=== PATIENT | male | born 1935 | race Caucasian/White ===

== ENCOUNTER 2017-04-12 20:40 | Inpatient (IN) | payer MEDICARE ==
[2017-04-12] MEDS ORDERED: methylPREDNISolone Sod Succ/PF 125 MG/2 ML VIAL ONE (21:10)
--- NOTE | 2017-04-12 21:42 | RAD ---
CHEST TWO VIEWS: History: Chest pain. Comparison: Chest one view, 11-30-16. FINDINGS: There is a left lower lobe airspace opacity confirmed on the lateral radiograph. Heart size is enlarg ed. No acute osseous abnormality. IMPRESSION: Left lower lobe airspace opacity suggesting pneumonia. POS: [facility]
[2017-04-12] MEDS ORDERED: Albuterol Sulfate 2.5 mg/3 ml Neb ONE (21:49)
[2017-04-12] MEDS ORDERED: Albuterol Sulfate 2.5 mg/0.5 ml Neb ONE (21:49)
[2017-04-12 22:04] LABS: Band 4 % (5-11); Mean Platelet Volume 7.2 fL (7.4-10.4); Neutrophil 67 % (42-75); Red Blood Cell (RBC) Count 4.13 mill/uL (4.70-6.10); White Blood Cell (WBC) Count 6.8 thou/uL (4.8-10.8)
[2017-04-12 22:08] LABS: ALT (SGPT) 8 U/L (8-55); AST (SGOT) 14 U/L (5-34); Alkaline Phosphatase 135 U/L (40-150); Anion Gap 10 mmol/L (10-20); BUN (Urea Nitrogen) 14 mg/dL (8.4-25.7); Bilirubin, Total 0.8 mg/dL (0.2-1.2); Calc. Creatinine Clearance 0 mL/min (70-130); Calcium 9.1 mg/dL (7.8-10.44); Carbon Dioxide 26 mmol/L (23-31); Chloride 98 mmol/L (98-107); Estimated GFR-MDRD 84; Globulin 2.7 g/dL (2.4-3.5); Protein, Total 6.5 g/dL (5.8-8.1)
[2017-04-12 22:12] LABS: Troponin I Less than 0.010 ng/mL (< 0.028)
[2017-04-13] MEDS ORDERED: Azithromycin 500 MG VIAL ONE (00:18)
--- NOTE | 2017-04-13 01:40 | PDOC.EVN ---
Event Note - Event Note Event Note: 111610 1. Pneumonia 2. COPD exacerbation 3. HTN 4. CAD Plan: see orders
[2017-04-13 01:56] LABS: Oxyhemoglobin 93.5 % (94.0-97.0)
[2017-04-13 01:57] LABS: Modified Allen's Test POSITIVE; Sodium 134 mmol/L (135-148); Vent NO
[2017-04-13 01:58] LABS: Mode Nasal Cannula
[2017-04-13 03:32] LABS: Troponin I 0.012 ng/mL (< 0.028)
[2017-04-13 04:05] VITALS: BMI 21.7
[2017-04-13] MEDS: cloNIDine 0.2 MG TAB PO PRN ×2 (05:13→11:41)
[2017-04-13 06:24] LABS: Troponin I Less than 0.010 ng/mL (< 0.028)
--- NOTE | 2017-04-13 09:50 | HP ---
DATE OF ADMISSION: 04/13/2017 CHIEF COMPLAINT: Dyspnea. HISTORY OF PRESENT ILLNESS: The patient is a 81-year-old male with a past medical history of COPD, h ypertension, coronary artery disease, who came to the ER complaining of dyspnea. The patient said he is having dyspnea for the last few days with some cough also. Denies any sputum production. Compla ins of wheezing at home. The patient tried breathing treatments and dyspnea did not improve. The pa hamzah checked his pulse ox at home, was low and when he was walking, his pulse ox was dropping to 88% , so he came to the ER. Upon ER arrival, the patient was initially hypoxic, so the patient was place d on oxygen and patient's oxygen sats improved later on. Denies any chest pain, complaining of some chest tightness, denies any dizziness, denies any lightheadedness, denies any nausea, denies any vomi ting. PAST MEDICAL HISTORY: As per HPI. PAST SURGICAL HISTORY: CABG. SOCIAL HISTORY: Used to smoke, not smoking, denies alcohol, denies any drugs. FAMILY HISTORY: Positive for heart problems. REVIEW OF SYSTEMS: Constitutional: Denies any fever, denies any chills. Eyes: Denies any vision p roblems. Ears: Denies any hearing loss. Neck: Denies any neck pain. Cardiovascular System: Denies any chest pain. Denies any palpitations. Respiratory System: Positi ve for dyspnea. Positive for cough. Cranial Nerve System: Denies syncope, denies lightheadedness. Psychiatric: Denies anxiety. Integumentary: Denies any rash. Musculoskeletal: Denies any joint deformities. Genitourinary: Denies any dysuria. All other revie w of systems are reviewed and are negative. PHYSICAL EXAMINATION: CONSTITUTIONAL/VITAL SIGNS: At the time of H&P performed, blood pressure 152/87, pulse ox 93%, heart rate 90. GENERAL: The patient appears tired. HEENT: Anterior nares patent. Nose normal. Ears normal. Teeth intact. Tongue is moist. NECK: Supple. No JVD. CARDIOVASCULAR SYSTEM: S1, S2 present. Regular rate and rhythm. No murmurs, no rubs, no gallops. RESPIRATORY SYSTEM: No wheezing or rhonchi. Diminished breath sounds present. Positive for wheezin g. ABDOMEN: Soft, nontender, no guarding, no organomegaly, no masses felt. MUSCULOSKELETAL: No edema. CRANIAL NERVE SYSTEM: Cranial nerves intact. Follows commands. Strength intact, sensory intact. GENITOURINARY: Without dysuria. INTEGUMENTARY: No rashes seen. PSYCHIATRIC: Mood is appropriate at this time. LABORATORY DATA: At the time of H&P performed, white count of 6.8, hemoglobin 13, platelet count is 238. BMP shows sodium 130, potassium 3.6, chloride 98, CO2 of 26, BUN of 14, creatinine 0.8. Tropon in less than 0.0. BNP 608. His chest x-ray positive for left lower lobe pneumonia and infiltrate. ASSESSMENT AND PLAN: The patient is a 81-year-old male: 1. Pneumonia. Perhaps the patient on IV Rocephin and Zithromax and monitor the patient closely. We will send legionella and Strep pneumo urinary antigen. We will start the patient on breathing treat ments. 2. Acute chronic obstructive pulmonary disease exacerbation. Continue breathing treatments and IV s teroids. Monitor respiratory status closely. Continue oxygen nasal cannula. 3. Hypertension. Monitor blood pressure. Continue home treatments. 4. History of coronary artery disease. Continue home aspirin. 5. Deep venous thrombosis and gastrointestinal prophylaxis, SCDs and PPI. Case was discussed in detail with the patient.
--- NOTE | 2017-04-13 11:01 | PDOC.PN ---
- Subjective Encounter Start Date: 04/13/17 Encounter Start Time: 10:00 No complaint.. feels better. Wants to go home. - Objective Vital Signs & Weight: Vital Signs (12 hours) Temp Pulse Resp BP BP Pulse Ox 04/13/17 07:30 97.7 F 93 22 H 95 04/13/17 07:18 98.8 F 120 H 20 166/96 H 96 04/13/17 06:08 163/102 H 04/13/17 05:32 176/101 H 04/13/17 05:13 200/103 H 04/13/17 03:53 200/103 H 94 L 04/13/17 02:20 97.7 F 93 22 H 189/97 H 95 Weight Weight 134 lb 4.184 oz I&O: 04/12/17 04/13/17 04/14/17 06:59 06:59 06:59 Intake Total 480 300 Balance 480 300 Result Diagrams: 04/12/17 Unknown 04/12/17 Unknown Phys Exam - Physical Examination HEENT: moist MMs Neck: no JVD Respiratory: clear to auscultation bilateral Cardiovascular: irregular Gastrointestinal: soft Musculoskeletal: no edema Neurological: moves all 4 limbs Psychiatric: A&O x 3 Dx/Plan (1) Pneumonia Code(s): J18.9 - PNEUMONIA, UNSPECIFIED ORGANISM Status: Acute (2) Asthma with COPD with exacerbation Code(s): J44.1 - CHRONIC OBSTRUCTIVE PULMONARY DISEASE W (ACUTE) EXACERBATION; J45.901 - UNSPECIFIED ASTHMA WITH (ACUTE) EXACERBATION Status: Acute (3) CAD (coronary artery disease) Code(s): I25.10 - ATHSCL HEART DISEASE OF [place] CORONARY ARTERY W/O ANG PCTRS Status: Chronic - Plan -: continue plan of care.. * .
[2017-04-13] MEDS ORDERED: cloNIDine 0.2 MG TAB PO PRN (12:20)
[2017-04-13] MEDS ORDERED: Tamsulosin HCl 0.4 MG CAP PO SCH (14:45)
[2017-04-13] MEDS ORDERED: Diltiazem HCl SR 60 mg Capsule PO SCH (14:45)
[2017-04-13] MEDS ORDERED: ALPRAZolam 0.25 MG TAB PO SCH (14:45)
[2017-04-13] MEDS ORDERED: Albuterol Sulfate 2.5 mg/3 ml Neb NEB SCH ×2 (14:45→19:00)
[2017-04-13] MEDS ORDERED: guaiFENesin ER 600 MG TAB PO SCH (14:45)
[2017-04-13] MEDS ORDERED: Lisinopril 20 MG TAB PO SCH (14:45)
[2017-04-13] MEDS ORDERED: CEFTRIAXONE SODIUM IVPB SCH (15:15)
[2017-04-13] MEDS ORDERED: cloNIDine 0.1 MG TAB PO PRN (15:44)
[2017-04-13] MEDS: Carvedilol 6.25 MG TAB PO SCH (17:16)
[2017-04-13] MEDS: Albuterol Sulfate 2.5 mg/3 ml Neb NEB SCH (19:19)
[2017-04-13] MEDS: Diltiazem HCl SR 60 mg Capsule PO SCH (20:15)
[2017-04-13] MEDS: Atorvastatin Calcium 40 MG TAB PO SCH (20:15)
[2017-04-13] MEDS: guaiFENesin ER 600 MG TAB PO SCH (20:15)
[2017-04-13] MEDS: Tamsulosin HCl 0.4 MG CAP PO SCH (20:16)
[2017-04-13] MEDS: Finasteride 5 MG TAB PO SCH (20:17)
[2017-04-13] MEDS: Lisinopril 20 MG TAB PO SCH (20:17)
[2017-04-13] MEDS ORDERED: MULTIVITAMINS IV SCH ×6 (22:00)
[2017-04-13] MEDS ORDERED: AMINO ACIDS 15% IV SCH ×6 (22:00)
[2017-04-13] MEDS ORDERED: MULTITRACE IV SCH ×6 (22:00)
[2017-04-13] MEDS ORDERED: [UNRECOGNIZED DRUG - OTHER] IV SCH ×6 (22:00)
[2017-04-13] MEDS: ALPRAZolam 0.25 MG TAB PO SCH (22:16)
--- NOTE | 2017-04-13 22:27 | CON ---
DATE OF CONSULTATION: 04/13/2017 HISTORY OF PRESENT ILLNESS: Mr. Moore is a very pleasant gentleman I have known as long as I have been in town. He is a patient of Dr. Draper's He said he went to the post office [place] and became short of breath and almost could not make it back home. He did a breathing treatment when he got home and says that he did not feel any better, s o he presented to the emergency department after 6:00 yesterday. He was not admitted until about 1:30 this morning. He is very frustrated because he says he has not received any of his medicines, I had hard time getti ng him to even provide a history. He had called my office and said he was leaving even though I did not know he was in the hospital. He has agreed to stay now. PAST MEDICAL HISTORY: Remarkable for: 1. Cholecystectomy. 2. History of coronary artery bypass grafting, 5 vessels. 3. History of myocardial infarction prior to his bypass, bypass done in 2002. 4. History of sternal dehiscence with his bypass. 5. History of benign prostatic hypertrophy. 6. History of hypertension. 7. History of asthma. 8. History of bilateral inguinal herniorrhaphies. 9. History of an umbilical herniorrhaphy. 10. History of cataract surgery. 11. He is a former smoker but has not smoked since about 2002 about the time of his surgery. 12. History of TURP [place] [address] Dhiraj Johnston. 13. History of post TURP bleed requiring cystoscopy. 14. History of a November admission with shortness of breath. 15. History of a lipid disorder. ALLERGIES: He reports allergies to SULFA, CIPRO, LEVAQUIN, and AUGMENTIN. MEDICATIONS: He was on aspirin, nebulizer, Xanax, atenolol, Cardizem, finasteride, lisinopril, omepr azole, and Mucinex. SOCIAL HISTORY: His in 2015. He lives alone. He does a good job of taking care of himself. FAMILY HISTORY: Positive for heart disease. REVIEW OF SYSTEMS: Otherwise negative, mainly remarkable for dyspnea on exertion. He denies having any fever at home. He had no purulent sputum. He says his chest is congested. PHYSICAL EXAMINATION: VITAL SIGNS: His blood pressure this morning was 181/103, he is afebrile, heart rate is 91, respirat ory rate is 24. GENERAL: He is very upset, again threatening to leave when I made rounds. By the time I left his ro om, he had calmed down. He said he would agree to stay tomorrow as long as he got all of his medicin es. Oximetry is 94. HEAD AND NECK: Unremarkable. LUNGS: Remarkable for faint wheezes diffusely with prolonged expiratory phase. When he gets excited , he has a hard time talking. HEART: Regular rhythm. S1 and S2 are normal. ABDOMEN: Soft and nontender. EXTREMITIES: Without asymmetry. LABORATORY DATA: White count 6.8, hemoglobin 13, platelets 238. Sodium 130, potassium 3.6, chloride 98, bicarbonate 26, BUN 14, creatinine 0.8. Blood gas 7.45, CO2 of 35, pO2 of 72 at 1:30 this morni ng. Chest radiograph is hazy at the left base, but old films are hazy at the left base as well. IMPRESSION: 1. Asthma exacerbation with bronchitis, perhaps early pneumonia versus mucous plugging was creating his radiographic abnormalities. 2. Hypertension, uncontrolled secondary to delay in him getting his medicines. PLAN: Nebs, antibiotics, mucolytics, IV fluids, anxiolytics, blood pressure control.
[2017-04-13] MEDS: cefTRIAXone\\ROCEPHIN 1 GM, Syringe 0.4 ML in Sterile Water 9.6 ML SLOW IVP SCH (23:17)
[2017-04-14] MEDS: Azithromycin 500 MG in Sodium Chloride 0.9% 250 ML 250 ML IVPB SCH (01:04)
[2017-04-14] MEDS: Albuterol Sulfate 2.5 mg/3 ml Neb NEB SCH ×4 (06:53→18:45)
[2017-04-14] MEDS: Aspirin 81 mg Enteric Coated Tablet PO SCH (09:08)
[2017-04-14] MEDS: ALPRAZolam 0.25 MG TAB PO SCH ×2 (09:08→22:10)
[2017-04-14] MEDS: Furosemide 20 MG TAB PO SCH (09:09)
[2017-04-14] MEDS: Lisinopril 20 MG TAB PO SCH ×2 (09:09→20:49)
[2017-04-14] MEDS: Diltiazem HCl SR 60 mg Capsule PO SCH ×2 (09:09→20:50)
[2017-04-14] MEDS: guaiFENesin ER 600 MG TAB PO SCH ×2 (09:09→20:51)
[2017-04-14] MEDS: Tamsulosin HCl 0.4 MG CAP PO SCH ×2 (09:10→20:52)
--- NOTE | 2017-04-14 11:42 | PDOC.PN ---
- Subjective Encounter Start Date: 04/14/17 Encounter Start Time: 10:45 -: +SOB - Objective Vital Signs & Weight: Vital Signs (12 hours) Temp Pulse Resp BP Pulse Ox 04/14/17 10:23 78 15 94 L 04/14/17 08:00 97.8 F 48 L 18 04/14/17 07:20 97.8 F 48 L 18 140/63 98 04/14/17 06:53 89 16 95 04/14/17 04:00 97.8 F 52 L 18 127/65 94 L 04/14/17 03:34 97 Weight Weight 132 lb 11.492 oz I&O: 04/13/17 04/14/17 04/15/17 06:59 06:59 06:59 Intake Total 480 1410 Output Total 1700 200 Balance 480 -290 -200 Result Diagrams: 04/12/17 Unknown 04/12/17 Unknown Phys Exam - Physical Examination HEENT: sclera anicteric Neck: no JVD Respiratory: wheezing present Cardiovascular: RRR Gastrointestinal: soft Musculoskeletal: no edema Neurological: moves all 4 limbs Psychiatric: A&O x 3 Dx/Plan (1) Pneumonia Code(s): J18.9 - PNEUMONIA, UNSPECIFIED ORGANISM Status: Acute Plan: continue antibiotics.. (2) Asthma with COPD with exacerbation Code(s): J44.1 - CHRONIC OBSTRUCTIVE PULMONARY DISEASE W (ACUTE) EXACERBATION; J45.901 - UNSPECIFIED ASTHMA WITH (ACUTE) EXACERBATION Status: Acute Comment : On steroids, bronchodilators.. (3) CAD (coronary artery disease) Code(s): I25.10 - ATHSCL HEART DISEASE OF [place] CORONARY ARTERY W/O ANG PCTRS Status: Chronic - Plan -: Continue current therapy. * .
[2017-04-14] MEDS: Carvedilol 6.25 MG TAB PO SCH (11:48)
[2017-04-14] MEDS: methylPREDNISolone Sod Succ/PF 125 MG/2 ML VIAL IVP SCH ×2 (14:08→20:52)
--- NOTE | 2017-04-14 15:50 | PRG ---
DATE OF SERVICE: 04/14/2017 SUBJECTIVE: Catarino is doing much better he says. He wants to go home. I have convinced him to stay 1 more day. OBJECTIVE: VITAL SIGNS: He is afebrile, heart rate is in the 60s-70s this afternoon, respiratory rate 16, oxime try is 95 on 2 liters, 92-93 on room air. He has his own oximeter. Blood pressure 137/71. LUNGS: Remarkable for distant wheezes. His chest exam is improved compared to yesterday. IMPRESSION: Asthma exacerbation. PLAN: Stay 1 more day. Hopefully, we can send him home tomorrow.
[2017-04-14] MEDS: Finasteride 5 MG TAB PO SCH (20:52)
[2017-04-14] MEDS: Atorvastatin Calcium 40 MG TAB PO SCH (20:52)
[2017-04-14] MEDS: cefTRIAXone\\ROCEPHIN 1 GM, Syringe 0.4 ML in Sterile Water 9.6 ML SLOW IVP SCH (23:26)
[2017-04-15] MEDS: Azithromycin 500 MG in Sodium Chloride 0.9% 250 ML 250 ML IVPB SCH (00:27)
[2017-04-15] MEDS: Albuterol Sulfate 2.5 mg/3 ml Neb NEB SCH (07:16)
[2017-04-15 08:30] VITALS: BP 150/79; TEMP 97.3
[2017-04-15] MEDS: Furosemide 20 MG TAB PO SCH (08:54)
[2017-04-15] MEDS: Aspirin 81 mg Enteric Coated Tablet PO SCH (08:54)
[2017-04-15] MEDS: Tamsulosin HCl 0.4 MG CAP PO SCH (08:54)
[2017-04-15] MEDS: ALPRAZolam 0.25 MG TAB PO SCH (08:55)
[2017-04-15] MEDS: methylPREDNISolone Sod Succ/PF 125 MG/2 ML VIAL IVP SCH (08:55)
[2017-04-15] MEDS: guaiFENesin ER 600 MG TAB PO SCH (08:55)
[2017-04-15] MEDS: Diltiazem HCl SR 60 mg Capsule PO SCH (08:55)
[2017-04-15] MEDS: Lisinopril 20 MG TAB PO SCH (08:57)
[2017-04-15] MEDS ORDERED: Carvedilol 6.25 MG TAB PO SCH (10:15)
--- NOTE | 2017-04-15 12:07 | DIS ---
DATE OF ADMISSION: 04/13/2017 DATE OF DISCHARGE: 04/14/2017 DISCHARGE DIAGNOSES: Pneumonia, chronic obstructive pulmonary disease/asthma exacerbation, coronary artery disease. BRANCH SALES MANAGER: Dr. Rodriguez. PROCEDURES: Chest x-ray, bronchodilator via nebulizer, IV administration of antibiotics. COURSE OF HOSPITALIZATION: Responded well to management. The patient was discharged by the pulmonol ogist earlier today. The patient is to follow up with his primary care physician and also with nephr ologist.
--- NOTE | 2017-04-15 14:27 | PRG ---
DATE OF SERVICE: 04/15/2017 SUBJECTIVE: Catarino Moore did well overnight. OBJECTIVE: LUNGS: He has only faint wheezes on exam. CARDIOVASCULAR: Regular rhythm. ABDOMEN: Soft. He is adamant that he be discharged. His family is comfortable with that. I have explained to them we can follow up with him in the office this week on Sunday or . His daughter will call for an appointment on Sunday hopefully. He will do go home on 40 of prednisone until he sees Dr. Draper. He will continue on Omnicef. Radiologist called an infiltrate at the left base, but I am not sure if this had just a little atelectasis associated with mucus plugging. He will have a followup radiograph at a later date. SAVANA
--- NOTE | 2017-04-19 11:53 | PQF ---
KRISTINE ZULETAE DEISISHIREEN [id number] [facility] [place] [id number] CLINICAL DOCUMENTATION CLARIFICATION FORM: POST DISCHARGE Addendum to original discharge summary date: ____ Late entry note date: __ DATE: 04/19/2017 ATTN: DR. LIPSCOMB Please exercise your independent, professional judgment in responding to the clarification form. Clinical indicators are provided on the bottom of this form for your review Please check appropriate box(s): [ ] Acute Respiratory Failure: [ ] with Hypoxia[ ] with Hypercapnia [ ] Acute On Chronic Respiratory Failure: [ ] with Hypoxia [ ] with Hypercapnia [ ] Acute Respiratory Failure due to: (etiology) [ ] Acute Respiratory Insufficiency following (if applicable): [ ] trauma [ ] surgery [ ] Chronic Respiratory Failure only [ ] with Hypoxia [ ] with Hypercapnia [ ] Hypoxia [ ] Other diagnosis [ ] Unable to determine In addition, please specify: Present on Admission (POA): [ ] Yes [ ] No [ ] Unable to determine For continuity of documentation, please document condition throughout progress notes and discharge summary. Thank You. CLINICAL INDICATORS - SIGNS / SYMPTOMS / LABS Respirtory rate in ER was 28 O2 sat was 94 on admission but dropped to 91 in ER ER physician states" that despite duoneb and hour long neb & steroids here, patient hypoxemic to upper 80s on room air" hypoxemia ER nursing Assessment notes " repsiratory effort labored, tachypneic" RISK FACTORS: Pneumonia COPD/Asthma exacerbation TREATMENTS: Oxygen Serial CXR Antibiotics IV Bronchodilators Pulmonary Consult (This form is maintained as a part of the permanent medical record) 2014 [employer]. All Rights Reserved [email or web address] [phone] SAVANA
== END 2017-04-15 10:38 | disposition home or self-care (01) | DRG 190 ==
LOC: ERS 20:40 → 2SE 04-13 00:45
PROVIDERS: ADMIT Internal Medicine; ATTEND Internal Medicine
DX: J44.0 Chronic obstructive pulmonary disease with (acute) lower respiratory infection (principal); J18.9 Pneumonia, unspecified organism; J45.901 Unspecified asthma with (acute) exacerbation; J44.1 Chronic obstructive pulmonary disease with (acute) exacerbation; Z87.891 Personal history of nicotine dependence; I25.10 Atherosclerotic heart disease of native coronary artery without angina pectoris; Z95.1 Presence of aortocoronary bypass graft; I25.2 Old myocardial infarction; I10 Essential (primary) hypertension; N40.0 Benign prostatic hyperplasia without lower urinary tract symptoms; Z88.1 Allergy status to other antibiotic agents; Z88.2 Allergy status to sulfonamides
CPT/HCPCS: 36415; 71020; 80053; 82553; 82805; 83880; 84484; 85025; 87040; 93005; 94640; 96365; 96375; A4216; J0456; J0696; J2930; J7050; J7611; J7620

== ENCOUNTER 2017-08-20 10:08 | Emergency (ER) | payer MEDICARE ==
[2017-08-20 10:49] LABS: Hemoglobin 15.9 g/dL (14.0-18.0); Mean Corpuscular HGB CONC 31.7 g/dL (32.0-36.0); Mean Corpuscular Hemoglobin 28.9 pg (27.0-31.0); Mean Corpuscular Volume 91.2 fl (80.0-94.0); Mean Platelet Volume 6.7 fL (7.4-10.4); Platelet Count 337 thou/uL (130-400); RBC Distribution Width 12.9 % (11.5-14.5); Red Blood Cell (RBC) Count 5.49 mill/uL (4.70-6.10); White Blood Cell (WBC) Count 28.4 thou/uL (4.8-10.8)
[2017-08-20 11:10] LABS: Lymphocytes 1 % (21-51); MDiff Complete? YES; Monocytes 5 % (0-10); Neutrophil 93 % (42-75); PLT Morphology Comment Appears Adequate; Reactive Lymphocytes 1 % (0-10)
--- NOTE | 2017-08-20 11:13 | RAD ---
SINGLE VIEW OF THE CHEST: Comparison: 11-30-16 History: Urinary retention for the day with shortness of breath. FINDINGS: Single view of the chest shows a normal sized cardiomediastinal silhouette with atherosclerotic calci fications in the aorta. The patient is status post sternotomy. Increased interstitial markings are pr esent. There is no evidence of consolidation, mass, or pleural effusion. IMPRESSION: 1. No evidence of acute cardiopulmonary disease. 2. Atherosclerotic disease. POS: [facility]
[2017-08-20 11:30] LABS: ALT (SGPT) 12 U/L (8-55); AST (SGOT) 17 U/L (5-34); Alkaline Phosphatase 110 U/L (40-150); Anion Gap 14 mmol/L (10-20); BUN (Urea Nitrogen) 20 mg/dL (8.4-25.7); Bilirubin, Total 1.2 mg/dL (0.2-1.2); CK (CPK) 46 U/L (30-200); Calc. Creatinine Clearance 0 mL/min (70-130); Calcium 9.9 mg/dL (7.8-10.44); Carbon Dioxide 27 mmol/L (23-31); Chloride 96 mmol/L (98-107); Estimated GFR-MDRD 75; Globulin 3.1 g/dL (2.4-3.5); Lipase 27 U/L (8-78); Potassium 3.9 mmol/L (3.5-5.1); Protein, Total 7.1 g/dL (5.8-8.1); Sodium 133 mmol/L (136-145)
[2017-08-20 11:31] LABS: Glucose 59 mg/dL (83-110)
[2017-08-20 11:44] LABS: Bilirubin Negative (Negative); Blood, Urine Negative (Negative); Clarity CLEAR (Clear); Glucose, Urine (Dipstick) Negative (Negative); Leukocyte Negative (Negative); Nitrite Negative (Negative); Protein, Urine (Dipstick) Negative (Neg-Trace); Specific Gravity, Urine 1.008 (1.002-1.036)
--- NOTE | 2017-09-28 15:38 | EKG ---
Test Reason : SOB Blood Pressure : / mmHG Vent. Rate : 082 BPM Atrial Rate : 082 BPM P-R Int : 186 ms QRS Dur : 130 ms QT Int : 380 ms P-R-T Axes : 064 -19 072 degrees QTc Int : 443 ms Sinus rhythm with occasional Premature ventricular complexes and Premature atrial complexes Right bundle branch block Inferior infarct , age undetermined Abnormal ECG Confirmed by GILMER GAINES MD ([id number]), medical editor RICHELLE BRAVO ([id number]) on 09/28/2017 3:37:51 PM Referred By: Confirmed By:GILMER GAINES MD
== END 2017-08-20 12:55 | disposition home or self-care (01) ==
LOC: ERS 10:08
DX: D72.829 Elevated white blood cell count, unspecified (principal); I10 Essential (primary) hypertension; I25.10 Atherosclerotic heart disease of native coronary artery without angina pectoris; J44.9 Chronic obstructive pulmonary disease, unspecified; F41.9 Anxiety disorder, unspecified; Z87.891 Personal history of nicotine dependence
CPT/HCPCS: 36416; 71045; 80053; 81003; 82550; 83690; 85025; 87086; 93005; 94760

== ENCOUNTER 2017-08-25 11:58 | Emergency (ER) | payer MEDICARE ==
[2017-08-25 12:28] LABS: #Eosinphils 0.1 thou/uL (0.0-0.7); #Lymphocytes 0.9 thou/uL (1.20-3.40); #Monocytes 0.9 thou/uL (0.11-0.59); #Neutrophils 6.4 thou/uL (1.40-6.50); %Basophils 0.4 % (0.0-1.0); %Eosinophils 1.4 % (0.0-10.0); %Neutrophils 76.2 % (42.0-75.0); Hemoglobin 14.6 g/dL (14.0-18.0); Mean Corpuscular Hemoglobin 30.2 pg (27.0-31.0); Mean Corpuscular Volume 91.4 fl (80.0-94.0); Mean Platelet Volume 6.8 fL (7.4-10.4); Platelet Count 278 thou/uL (130-400); RBC Distribution Width 12.6 % (11.5-14.5); Red Blood Cell (RBC) Count 4.85 mill/uL (4.70-6.10); White Blood Cell (WBC) Count 8.4 thou/uL (4.8-10.8)
[2017-08-25 12:56] LABS: ALT (SGPT) 10 U/L (8-55); AST (SGOT) 21 U/L (5-34); Albumin 3.6 g/dL (3.4-4.8); Alkaline Phosphatase 108 U/L (40-150); Anion Gap 13 mmol/L (10-20); BUN (Urea Nitrogen) 13 mg/dL (8.4-25.7); Bilirubin, Total 0.6 mg/dL (0.2-1.2); Calc. Creatinine Clearance 0 mL/min (70-130); Calcium 9.2 mg/dL (7.8-10.44); Carbon Dioxide 23 mmol/L (23-31); Chloride 102 mmol/L (98-107); Estimated GFR-MDRD 86; Globulin 3.3 g/dL (2.4-3.5); Glucose 182 mg/dL (83-110); Potassium 4.5 mmol/L (3.5-5.1); Protein, Total 6.9 g/dL (5.8-8.1); Sodium 133 mmol/L (136-145)
[2017-08-25 12:58] LABS: Bilirubin Negative (Negative); Blood, Urine Large (Negative); Clarity CLOUDY (Clear); Glucose, Urine (Dipstick) Negative (Negative); Leukocyte Moderate (Negative); Nitrite Negative (Negative); Protein, Urine (Dipstick) Trace mg/dL (Neg-Trace); Specific Gravity, Urine 1.009 (1.002-1.036); Urobilinogen 0.2 mg/dL (0.2-1.0)
[2017-08-25 13:00] LABS: Bacteria/HPF None Seen HPF (None Seen); Hyaline Casts/LPF 0-3 HYALINE CAST LPF (0-3 Hyaline); Pathc Cast-AUWi Flag 0.26 (0-2.49); RBC/HPF GREATER THAN 50-TNTC HPF (0-3); Squamous Epithelial 0-3 HPF (0-3); WBC/HPF 21-50 HPF (0-3); Yeast-AUWi Flag 17.9 (0-25.0)
== END 2017-08-25 13:40 | disposition home or self-care (01) ==
LOC: ERS 11:58
DX: R31.9 Hematuria, unspecified (principal); I25.10 Atherosclerotic heart disease of native coronary artery without angina pectoris; I10 Essential (primary) hypertension; J44.9 Chronic obstructive pulmonary disease, unspecified; F41.9 Anxiety disorder, unspecified; Z87.891 Personal history of nicotine dependence
CPT/HCPCS: 36415; 80053; 81003; 81015; 85025; 87077; 87086; 87186; 96361; 96374; J0696

== ENCOUNTER 2018-04-29 09:36 | Outpatient (CLI) | payer MEDICARE ==
--- NOTE | 2018-04-29 10:06 | RAD ---
RADIOGRAPH CHEST 2 VIEWS: Date: 04-29-18 Time: 9:53 A.M. HISTORY: 82-year-old male with dyspnea. COMPARISON: 08-20-17 FINDINGS: Severe COPD changes of the bilateral upper lobes with hyperlucency and attenuation of pulmonary nick ngs. Sternotomy wires. No pleural effusion. Nonspecific increased attenuation with streaky densities in the left lower lobe appear similar to the prior study. Lateral view demonstrates significantly inc reased AP dimension of the heart. Atherosclerotic calcification of the thoracic aorta. Surgical clips at the mediastinum. No pneumothorax. No interval change on the frontal view. IMPRESSION: 1. Severe emphysema. 2. Cardiomegaly without overt congestive heart failure. 3. Status post coronary artery bypass graft surgery is evidence for coronary atherosclerotic disease. 4. Streaky densities in the left lower lobe. This is nonspecific. This could either represent chronic changes or recurrent acute on chronic changes. This appears similar to the frontal view of 08-20-17. JN POS: [facility]
== END 2018-04-29 09:37 | disposition home or self-care (01) ==
LOC: RAD 09:36
PROVIDERS: ATTEND Internal Medicine Pulmonary Disease
DX: R06.00 Dyspnea, unspecified (principal); J43.9 Emphysema, unspecified; I51.7 Cardiomegaly; R91.8 Other nonspecific abnormal finding of lung field; I25.10 Atherosclerotic heart disease of native coronary artery without angina pectoris; Z95.1 Presence of aortocoronary bypass graft
CPT/HCPCS: 71046

== ENCOUNTER 2018-07-30 16:15 | Outpatient (CLI) | payer MEDICARE ==
--- NOTE | 2018-07-30 17:26 | RAD ---
THREE VIEWS LUMBAR SPINE: 07/30/18 INDICATION: Back pain. FINDINGS: There is advanced disc degenerative disease at L2-3. There is dextroscoliosis of the lumbar spine bernardo tered at L2-3. There is diffuse osteopenia. There is advanced disc degenerative disease at L5-S1. The re is vacuum disc phenomenon at L2-3 and L5-S1 which can be indicative of underlying instability. The re is prominent amount of retained stool within the rectum. There is scattered vascular calcification s. No definite acute osseous abnormality is evident. IMPRESSION: 1. Moderate spondylosis of the lumbar spine. 2. Prominent amount of retained stool within the colon. POS: [facility]
== END 2018-07-30 16:16 | disposition home or self-care (01) ==
LOC: SCSRAD 16:15
PROVIDERS: ATTEND Nurse Practitioner Family
DX: M54.5 Low back pain (principal); M47.816 Spondylosis without myelopathy or radiculopathy, lumbar region; K59.00 Constipation, unspecified
CPT/HCPCS: 72100

== ENCOUNTER 2018-08-01 11:27 | Emergency (ER) | payer MEDICARE ==
[2018-08-01 12:49] LABS: Hemoglobin 13.6 g/dL (14.0-18.0); Mean Corpuscular HGB CONC 32.4 g/dL (32.0-36.0); Mean Corpuscular Hemoglobin 30.1 pg (27.0-31.0); Mean Corpuscular Volume 92.7 fL (78.0-98.0); Mean Platelet Volume 7.4 fL (7.4-10.4); Platelet Count 340 thou/uL (130-400); RBC Distribution Width 12.8 % (11.5-14.5); Red Blood Cell (RBC) Count 4.53 mill/uL (4.70-6.10); White Blood Cell (WBC) Count 9.2 thou/uL (4.8-10.8)
[2018-08-01 13:05] LABS: Band 1 % (5-11); Burr Cells SLIGHT = 2-5 cells (100X) (0-1/hpf); Eosinophils 1 % (0-10); Lymphocytes 15 % (21-51); MDiff Complete? YES; Monocytes 14 % (0-10); Neutrophil 67 % (42-75); Ovalocytes SLIGHT = 2-5 cells (100X) (0-1/hpf); Platelet Morphology Comment Appears Adequate; Polychromasia SLIGHT = 2-3 cells (100X) (0-2/hpf); Reactive Lymphocytes 2 % (0-10)
[2018-08-01 13:12] LABS: ALT (SGPT) 8 U/L (8-55); AST (SGOT) 13 U/L (5-34); Albumin 3.4 g/dL (3.4-4.8); Alkaline Phosphatase 89 U/L (40-150); Anion Gap 10 mmol/L (10-20); BUN (Urea Nitrogen) 19 mg/dL (8.4-25.7); Bilirubin, Total 0.8 mg/dL (0.2-1.2); Calc. Creatinine Clearance 0 mL/min (70-130); Calcium 8.8 mg/dL (7.8-10.44); Carbon Dioxide 30 mmol/L (23-31); Chloride 93 mmol/L (98-107); Estimated GFR-MDRD 81; Globulin 2.1 g/dL (2.4-3.5); Glucose 102 mg/dL (83-110); Potassium 3.6 mmol/L (3.5-5.1); Protein, Total 5.5 g/dL (5.8-8.1); Sodium 129 mmol/L (136-145)
[2018-08-01 13:24] LABS: Bilirubin Negative (Negative); Blood, Urine Negative (Negative); Clarity CLEAR (Clear); Glucose, Urine (Dipstick) Negative (Negative); Leukocyte Negative (Negative); Nitrite Negative (Negative); Protein, Urine (Dipstick) Negative (Neg-Trace); Specific Gravity, Urine 1.012 (1.002-1.036); pH, Urine 6.5 (5.0-9.0)
--- NOTE | 2018-08-03 17:36 | EKG ---
Test Reason : WEAKNESS Blood Pressure : / mmHG Vent. Rate : 037 BPM Atrial Rate : 044 BPM P-R Int : 000 ms QRS Dur : 136 ms QT Int : 498 ms P-R-T Axes : 000 -46 021 degrees QTc Int : 390 ms Atrial fibrillation with slow ventricular response Right bundle branch block Left anterior fascicular block Bifascicular block Inferior infarct , age undetermined T wave abnormality, consider lateral ischemia or digitalis effect Abnormal ECG Confirmed by ALISSA BERNAL, ILDA ([id number]), photograph editor RICHELLE BRAVO ([id number]) on 08/03/2018 5:35:47 PM Referred By: ALISSA Confirmed By:ILDA MAXWELL MD
== END 2018-08-01 15:33 | disposition home or self-care (01) ==
LOC: ERS 11:27
DX: E87.1 Hypo-osmolality and hyponatremia (principal); I25.10 Atherosclerotic heart disease of native coronary artery without angina pectoris; I10 Essential (primary) hypertension; J44.9 Chronic obstructive pulmonary disease, unspecified; F41.9 Anxiety disorder, unspecified; Z87.891 Personal history of nicotine dependence
CPT/HCPCS: 36415; 51701; 80053; 81003; 85025; 93005; 94760

== ENCOUNTER 2018-08-02 02:36 | Emergency (ER) | payer MEDICARE ==
[2018-08-02 03:37] LABS: Hemoglobin 14.6 g/dL (14.0-18.0); Mean Corpuscular HGB CONC 32.7 g/dL (32.0-36.0); Mean Corpuscular Hemoglobin 29.7 pg (27.0-31.0); Mean Corpuscular Volume 90.8 fL (78.0-98.0); Mean Platelet Volume 7.5 fL (7.4-10.4); Platelet Count 360 thou/uL (130-400); RBC Distribution Width 12.9 % (11.5-14.5); Red Blood Cell (RBC) Count 4.91 mill/uL (4.70-6.10); White Blood Cell (WBC) Count 22.1 thou/uL (4.8-10.8)
[2018-08-02 03:43] LABS: Bilirubin Negative (Negative); Blood, Urine Negative (Negative); Clarity CLEAR (Clear); Glucose, Urine (Dipstick) Negative (Negative); Leukocyte Negative (Negative); Nitrite Negative (Negative); Protein, Urine (Dipstick) Negative (Neg-Trace); Specific Gravity, Urine 1.011 (1.002-1.036); Urobilinogen 0.2 mg/dL (0.2-1.0)
[2018-08-02 03:46] LABS: ALT (SGPT) 9 U/L (8-55); AST (SGOT) 15 U/L (5-34); Albumin 3.8 g/dL (3.4-4.8); Alkaline Phosphatase 98 U/L (40-150); Anion Gap 12 mmol/L (10-20); BUN (Urea Nitrogen) 14 mg/dL (8.4-25.7); Bilirubin, Total 1.3 mg/dL (0.2-1.2); Calc. Creatinine Clearance 0 mL/min (70-130); Calcium 8.9 mg/dL (7.8-10.44); Carbon Dioxide 27 mmol/L (23-31); Chloride 94 mmol/L (98-107); Estimated GFR-MDRD Greater than 90; Globulin 2.3 g/dL (2.4-3.5); Glucose 113 mg/dL (83-110); Potassium 3.2 mmol/L (3.5-5.1); Protein, Total 6.1 g/dL (5.8-8.1); Sodium 130 mmol/L (136-145)
[2018-08-02 03:47] LABS: Band 3 % (5-11); Lymphocytes 2 % (21-51); MDiff Complete? YES; Monocytes 7 % (0-10); Neutrophil 88 % (42-75); Platelet Morphology Comment Appears Adequate; RBC Morphology Normal
--- NOTE | 2018-08-02 07:25 | RAD ---
CHEST 1 VIEW: Date: 08/02/18 INDICATION: Shortness of breath. COMPARISON: Prior exam dated 04/29/18. FINDINGS: There is interstitial thickening likely related to underlying fibrosis. There is moderate cardiomegal y, which is stable appearing. Midline sternotomy changes are similar appearing. Pleural thickening in volving the left lower hemithorax is stable. No pneumothorax is evident. IMPRESSION: Stable chronic findings. POS: [facility]
== END 2018-08-02 04:28 | disposition home or self-care (01) ==
LOC: ERS 02:36
DX: R33.9 Retention of urine, unspecified (principal); I25.10 Atherosclerotic heart disease of native coronary artery without angina pectoris; I10 Essential (primary) hypertension; J44.9 Chronic obstructive pulmonary disease, unspecified; Z87.891 Personal history of nicotine dependence; Z79.899 Other long term (current) drug therapy; Z79.82 Long term (current) use of aspirin
CPT/HCPCS: 36415; 71045; 80053; 81003; 84484; 85025; 93005

== ENCOUNTER 2018-08-04 20:11 | Inpatient (IN) | payer MEDICARE ==
[2018-08-04] MEDS ORDERED: Albuterol Sulfate 2.5 mg/3 ml Neb ONE ×3 (20:39→22:57)
[2018-08-04 20:58] LABS: Band 5 % (5-11); Hemoglobin 14.7 g/dL (14.0-18.0); Lymphocytes 3 % (21-51); MDiff Complete? YES; Mean Corpuscular HGB CONC 33.6 g/dL (32.0-36.0); Mean Corpuscular Hemoglobin 31.2 pg (27.0-31.0); Mean Corpuscular Volume 92.9 fL (78.0-98.0); Mean Platelet Volume 7.4 fL (7.4-10.4); Monocytes 7 % (0-10); Neutrophil 85 % (42-75); Platelet Count 424 thou/uL (130-400); Platelet Morphology Comment Appears Increased; RBC Distribution Width 12.8 % (11.5-14.5); Red Blood Cell (RBC) Count 4.71 mill/uL (4.70-6.10); White Blood Cell (WBC) Count 28.4 thou/uL (4.8-10.8)
[2018-08-04 21:11] LABS: ALT (SGPT) 9 U/L (8-55); AST (SGOT) 13 U/L (5-34); Albumin 3.9 g/dL (3.4-4.8); Alkaline Phosphatase 103 U/L (40-150); Anion Gap 9 mmol/L (10-20); BUN (Urea Nitrogen) 10 mg/dL (8.4-25.7); Bilirubin, Total 1.1 mg/dL (0.2-1.2); CK (CPK) 40 U/L (30-200); Calc. Creatinine Clearance 0 mL/min (70-130); Calcium 9.4 mg/dL (7.8-10.44); Carbon Dioxide 30 mmol/L (23-31); Chloride 97 mmol/L (98-107); Estimated GFR-MDRD 87; Globulin 2.7 g/dL (2.4-3.5); Glucose 141 mg/dL (83-110); Potassium 3.3 mmol/L (3.5-5.1); Protein, Total 6.6 g/dL (5.8-8.1); Sodium 133 mmol/L (136-145)
--- NOTE | 2018-08-04 21:23 | RAD ---
PORTABLE UPRIGHT FRONTAL CHEST RADIOGRAPH: 08/04/2018 HISTORY: Shortness of breath. COMPARISON: 08/02/2018 FINDINGS: There are severe emphysematous changes with an upper lobe predominance, stable when compared to the p rior exam. Stable midline sternotomy wires and mediastinal clips. Blunting of the left costophrenic angle suggests small volume stable left pleural fluid and/or pleural thickening. no significant int erval change. IMPRESSION: Stable appearance of the chest when compared to the 08/02/2018 examination, as detailed above. POS: [facility]
[2018-08-04] MEDS ORDERED: Aspirin Chewable 81 MG TAB ONE (22:32)
[2018-08-04] MEDS ORDERED: Cefepime 2 GM VIAL ONE (22:33)
[2018-08-04] MEDS ORDERED: Sodium Chloride 0.9% 100 ML ONE (22:33)
[2018-08-04] MEDS ORDERED: methylPREDNISolone Sod Succ/PF 125 MG/2 ML VIAL ONE (22:34)
[2018-08-04] MEDS ORDERED: methylPREDNISolone Sod Succ 40 MG VIAL ONE (22:34)
[2018-08-04] MEDS ORDERED: Nitroglycerin 2% Ointment 1 INCH/1 GM Packet ONE (22:35)
[2018-08-04] MEDS ORDERED: Furosemide 100 MG/10 ML VIAL ONE ×2 (22:35→22:37)
[2018-08-04] MEDS ORDERED: Ondansetron PF 4 MG/2 ML Vial IVP PRN (23:13)
[2018-08-04] MEDS ORDERED: Acetaminophen 650 MG Suppository PR PRN (23:13)
[2018-08-04 23:30] LABS: Bilirubin Negative (Negative); Blood, Urine Large (Negative); Clarity CLOUDY (Clear); Glucose, Urine (Dipstick) Negative (Negative); Leukocyte Moderate (Negative); Nitrite Negative (Negative); Protein, Urine (Dipstick) Trace mg/dL (Neg-Trace); Specific Gravity, Urine 1.017 (1.002-1.036)
[2018-08-04 23:33] LABS: Bacteria/HPF 2+ HPF (None Seen); Hyaline Casts/LPF 7-10 HYALINE CAST LPF (0-3 Hyaline); Pathc Cast-AUWi Flag 0.27 (0-2.49); RBC/HPF GREATER THAN 50-TNTC HPF (0-3); Squamous Epithelial None Seen HPF (0-3)
[2018-08-05] MEDS ORDERED: Zolpidem Tartrate 5 MG TAB PO PRN (00:03)
[2018-08-05] MEDS ORDERED: Ondansetron PF 4 MG/2 ML Vial IVP PRN (00:03)
[2018-08-05] MEDS ORDERED: Acetaminophen 325 MG TAB PO PRN (00:03)
[2018-08-05] MEDS ORDERED: Senokot S 8.6-50 MG TAB PO PRN (00:03)
[2018-08-05] MEDS ORDERED: HumaLOG 300 UNITS/3 ML VIAL SC PRN (00:07)
[2018-08-05] MEDS ORDERED: Dextrose 5% in Water 1,000 ML IV PRN (00:07)
[2018-08-05] MEDS ORDERED: Dextrose 50% Abboject 50 ML SYRINGE SLOW IVP PRN (00:07)
[2018-08-05] MEDS ORDERED: Potassium Chloride 20 MEQ TAB PO SCH (00:15)
--- NOTE | 2018-08-05 00:17 | PDOC.EVN ---
Event Note - Event Note Event Note: H&P [id number]
[2018-08-05 00:46] LABS: Hemoglobin A1c 6.3 % (4.0-6.0)
[2018-08-05 00:53] LABS: Troponin I 0.016 ng/mL (< 0.028)
--- NOTE | 2018-08-05 00:58 | HP ---
ADMITTING DIAGNOSES: Shortness of breath and difficulty walking. HISTORY OF PRESENT ILLNESS: This is an 83-year-old male with significant past medical history for hypertension, prediabetes mellitus, coronary artery disease, had a cardiac bypass apparently 16 years ago, was here 2 to 3 days ago with similar complaints, was found to have bladder incontinence and obstruction, had a Aguayo placed and discharged with Flomax, antibiotics, steroids, and to have follow up with outpatient urologist. The patient's home passenger rate clerk is Dr. Spears. The patient states that he follows with a passenger rate clerk regularly, now presents at this point in time because of again difficulty walking. Of note, the patient was supposed to have an inpatient rehab evaluation done outpatient by his primary physician. The patient stated that his issue started about 2 to 3 weeks ago when he developed difficulty walking. He was having thigh cramping pain, bilateral upper extremity and he also has difficulty with the same complaint when he continues to walk. Otherwise, he has no other alleviating or aggravating factors. The patient denies any other associated symptoms or complaints. Upon further questioning, the one complaint that he does come up with is that in the last 48 hours he has developed some significant shortness of breath upon ambulation and cough. The patient managed appropriately in the ER, was given steroids, dose of antibiotics and fluids and breathing treatments. The patient stated that he felt much better when he received these with this modality of care. The patient otherwise stated that he felt well and stable. The patient is seen and examined in the ER. Family at bedside. All questions answered. REVIEW OF SYSTEMS: All systems were reviewed. Pertinent positives in HPI. Otherwise negative. HOME MEDICATIONS: See MAR. ALLERGIES: SEE COMPUTER RECORDS. PAST MEDICAL HISTORY: Coronary artery disease, hyperlipidemia, prediabetes, hypertension, history of cardiac bypass x5 approximately 16 years ago. SOCIAL HISTORY: Patient apparently smoked 5 to 6 packets of cigarettes a day for 40 years, quit 16 years ago when he had his heart bypass. Otherwise, social drinker. FAMILY HISTORY: Positive for heart disease and diabetes. REVIEW OF SYSTEMS: All systems reviewed, pertinent positive in HPI, otherwise negative. PHYSICAL EXAMINATION: VITAL SIGNS: Blood pressure is 128/88, O2 saturations 100% on 2 L nasal cannula, heart rate is 76, and temperature of 98. GENERAL: The patient sitting in bed with no acute discomfort. HEENT: Pupils are equal, round, and reactive to light and accommodation. Oral cavity moist and pink. NECK: Supple, mobile, nontender. Thyroid appreciated. CARDIOVASCULAR: Reveals coarse breath sounds. The patient appears to be gurgling when he breathes. No respiratory distress otherwise. No increase in AP diameter. Faint systolic ejection murmur appreciated. S1, S2. No rubs or gallops. ABDOMEN: Positive bowel sounds. Soft, nontender, nondistended. EXTREMITIES: Trace pitting edema in bilateral lower extremities. 2+ peripheral pulses. No cyanosis or clubbing. NEUROLOGIC: Cranial nerves 2 through 12 intact. Alert and oriented x3. No loss of motor or sensory function. Pain upon ambulation. LABORATORY DATA: CBC reviewed. Chemistry reviewed. Urinalysis reviewed. Chest x-ray was performed as well which showed no changes since prior x-rays 48 hours ago. ASSESSMENT: 1. Shortness of breath. 2. Antalgic gait. 3. Hyperlipidemia. 4. Coronary artery disease. 5. Prediabetes versus diabetes. 6. Leukocytosis. 7. Shortness of breath. PLAN: 1. At this point in time, we will admit the patient to Internal Medicine Team. We will obtain an echocardiogram. 2. Start the patient on DuoNeb. 3. Start the patient on Rocephin and azithromycin as well as steroids for possible COPD exacerbation versus bronchitis. 4. A1c and insulins for his diabetes. 5. We will consult Case Management for inpatient rehab placement. 6. We will get a PT evaluation in patient as well. 7. At this point in time, we will basically see the patient's COPD exacerbation and go forward from there. 8. Cramping in the legs may be from the atorvastatin that he is taking. He is on 40 mg daily. At this point in time, we will obtain a CPK level and change to rosuvastatin 5 mg, and depending on how patient does over the next 24 to 48 hours if feeling better, he could probably be transitioned to the inpatient rehab from the hospital directly or if just going home. Case and plan discussed with the patient's family and patient at length. They understand and agree with this plan. The patient wishes to remain a full code. Job ID: [id number]
[2018-08-05] MEDS: ALPRAZolam 0.25 MG TAB PO PRN ×2 (01:52→10:36)
[2018-08-05 02:22] VITALS: BMI 22.1
[2018-08-05] MEDS ORDERED: ALPRAZolam 0.5 MG TAB PO SCH (02:45)
[2018-08-05] MEDS ORDERED: ALPRAZolam 0.25 MG TAB PO SCH (03:15)
[2018-08-05 04:55] LABS: Anion Gap 9 mmol/L (10-20); BUN (Urea Nitrogen) 10 mg/dL (8.4-25.7); Band 7 % (5-11); CK (CPK) 32 U/L (30-200); Calc. Creatinine Clearance 60 mL/min (70-130); Calcium 9.2 mg/dL (7.8-10.44); Carbon Dioxide 31 mmol/L (23-31); Chloride 95 mmol/L (98-107); Estimated GFR-MDRD 87; Glucose 219 mg/dL (83-110); Hemoglobin 14.5 g/dL (14.0-18.0); Lymphocytes 3 % (21-51); MDiff Complete? YES; Mean Corpuscular Hemoglobin 30.3 pg (27.0-31.0); Mean Corpuscular Volume 91.9 fL (78.0-98.0); Mean Platelet Volume 7.5 fL (7.4-10.4); Monocytes 3 % (0-10); Neutrophil 87 % (42-75); Platelet Count 364 thou/uL (130-400); Platelet Morphology Comment Appears Adequate; Potassium 3.5 mmol/L (3.5-5.1); RBC Distribution Width 12.7 % (11.5-14.5); Red Blood Cell (RBC) Count 4.79 mill/uL (4.70-6.10); Sodium 131 mmol/L (136-145); White Blood Cell (WBC) Count 19.2 thou/uL (4.8-10.8)
[2018-08-05 04:58] LABS: Troponin I 0.019 ng/mL (< 0.028)
[2018-08-05] MEDS: Azithromycin 500 MG in Sodium Chloride 0.9% 250 ML 250 ML IVPB SCH (06:14)
[2018-08-05] MEDS: methylPREDNISolone Sod Succ 40 MG VIAL IVP SCH ×2 (06:14→14:07)
[2018-08-05 06:35] LABS: Troponin I Less than 0.010 ng/mL (< 0.028)
[2018-08-05] MEDS: HumaLOG 300 UNITS/3 ML VIAL SC PRN ×3 (06:55→17:20)
[2018-08-05] MEDS: Finasteride 5 MG TAB PO SCH (08:58)
[2018-08-05] MEDS: Carvedilol 6.25 MG TAB PO SCH ×2 (08:58→17:19)
[2018-08-05] MEDS: Lisinopril 20 MG TAB PO SCH ×2 (09:01→20:26)
[2018-08-05] MEDS: Tamsulosin HCl 0.4 MG CAP PO SCH ×2 (09:01→20:26)
[2018-08-05] MEDS: cefTRIAXone\\ROCEPHIN 1 GM in Sodium Chloride 0.9% 100 ML IVPB SCH (09:02)
[2018-08-05] MEDS: Aspirin 81 mg Enteric Coated Tablet PO SCH (09:02)
[2018-08-05] MEDS: cloNIDine 0.2 MG TAB PO PRN (10:36)
[2018-08-05] MEDS ORDERED: Albuterol Sulfate 2.5 mg/3 ml Neb NEB PRN (10:46)
[2018-08-05] MEDS ORDERED: guaiFENesin/DM ER PO SCH (11:00)
[2018-08-05] MEDS ORDERED: Furosemide 20 MG TAB PO SCH (11:00)
[2018-08-05] MEDS ORDERED: Polyethylene Glycol 3350 17 GM Packet PO SCH (11:45)
[2018-08-05 13:26] LABS: Troponin I 0.012 ng/mL (< 0.028)
--- NOTE | 2018-08-05 14:18 | PDOC.PN ---
- Subjective Encounter Start Date: 08/05/18 Encounter Start Time: 07:40 Pt seen for followup re: COPD exacerbation. Says he feels better. - Objective Resuscitation Status - Order Detail: 08/05/18 00:03 Resuscitation Status Routine Resuscitation Status: FULL: Full Resuscitation Discussed with: patient and family MAR Reviewed: Yes Vital Signs & Weight: Vital Signs (12 hours) Temp Pulse Pulse Pulse Resp BP BP 08/05/18 12:00 98.3 F 81 20 08/05/18 11:25 82 76 118/71 08/05/18 10:36 186/113 H 08/05/18 09:01 193/95 H 08/05/18 09:00 74 193/95 H 08/05/18 08:58 193/95 H 08/05/18 08:40 74 193/93 H 08/05/18 07:54 98.3 F 90 20 08/05/18 04:03 08/05/18 03:45 98 F 70 20 08/05/18 02:29 BP BP Pulse Ox Pulse Ox Pulse Ox 08/05/18 12:00 134/72 95 08/05/18 11:25 121/70 100 100 08/05/18 10:36 08/05/18 09:01 08/05/18 09:00 08/05/18 08:58 08/05/18 08:40 08/05/18 07:54 141/106 H 95 08/05/18 04:03 152/95 H 08/05/18 03:45 181/108 H 90 L 08/05/18 02:29 98 Weight Weight 136 lb 14.4 oz Result Diagrams: 08/05/18 04:17 08/05/18 04:17 Additional Labs: Accuchecks 08/05/18 08/05/18 11:14 06:52 POC Glucose 228 H 216 H EKG Reviewed by me: Yes (Tele: NSR) Phys Exam - Physical Examination Constitutional: NAD HEENT: moist MMs, sclera anicteric, oral pharynx no lesions, 2+ tonsils Neck: no nodes, no JVD, supple, full ROM Respiratory: wheezing present Cardiovascular: RRR, no rub S1, S2 Gastrointestinal: soft, non-tender, no distention, positive bowel sounds Aguayo catheter Neurological: moves all 4 limbs Psychiatric: normal affect, A&O x 3 Dx/Plan (1) Acute respiratory failure with hypoxia Code(s): J96.01 - ACUTE RESPIRATORY FAILURE WITH HYPOXIA Status: Acute Comment: secondary to COPD exacerbation (2) COPD exacerbation Code(s): J44.1 - CHRONIC OBSTRUCTIVE PULMONARY DISEASE W (ACUTE) EXACERBATION Status: Acute Comment: Improving with oxygen, steroids and bronchodilators. (3) UTI (urinary tract infection) Status: Acute Comment: continue ceftriaxone, follow urine culture (4) BPH (benign prostatic hyperplasia) Code(s): N40.0 - BENIGN PROSTATIC HYPERPLASIA WITHOUT LOWER URINRY TRACT SYMP Status: Chronic Comment: s/p Aguayo catheter (5) CAD (coronary artery disease) Code(s): I25.10 - ATHSCL HEART DISEASE OF [place] CORONARY ARTERY W/O ANG PCTRS Status: Chronic Comment: stable (6) HLD (hyperlipidemia) Code(s): E78.5 - HYPERLIPIDEMIA, UNSPECIFIED Status: Chronic Comment: statin on hold (7) HTN (hypertension) Code(s): I10 - ESSENTIAL (PRIMARY) HYPERTENSION Status: Chronic Comment: controlled - Plan * . Review of Systems - Review of Systems Constitutional: negative: fever, chills, sweats, weakness, malaise Respiratory: Cough, SOB with Excertion, Sputum. negative: Dry, Shortness of Breath, Hemoptysis, Pleuritic Pain, Wheezing Cardiovascular: negative: chest pain, palpitations, orthopnea, paroxysmal nocturnal dyspnea, edema, light headedness Gastrointestinal: negative: Nausea, Vomiting, Abdominal Pain, Diarrhea, Constipation, Melena, Hematochezia Genitourinary: negative: Dysuria, Frequency, Incontinence, Hematuria, Retention - Medications/Allergies Allergies/Adverse Reactions: Allergies Allergy/AdvReac Type Severity Reaction Status Date / Time Sulfa (Sulfonamide Allergy Unknown Verified 08/05/18 05:50 Antibiotics) ciprofloxacin [From Cipro] Allergy Verified 08/05/18 05:50 ciprofloxacin HCl Allergy Verified 08/05/18 05:50 [From Cipro] hydralazine Allergy Verified 08/05/18 05:50 ipratropium Allergy Verified 08/05/18 05:50 levofloxacin Allergy Verified 08/05/18 05:50 amox-clav Allergy Mild Uncoded 10/06/16 08:56 Medications: Current Medications Acetaminophen (Tylenol) 650 mg PO Q4H PRN PRN Reason: Headache/Fever/Mild Pain (1-3) Albuterol Sulfate (Ventolin) 2.5 mg NEB [id number] PRN PRN Reason: SOB &/or Wheezing Alprazolam (Xanax) 0.25 mg PO BIDPRN PRN PRN Reason: Anxiety/Agitation Last Admin: 08/05/18 10:36 Dose: 0.25 mg Aspirin (Ecotrin) 81 mg PO DAILY [facility] Last Admin: 08/05/18 09:02 Dose: 81 mg Carvedilol (Coreg) 12.5 mg PO BID[facility] Last Admin: 08/05/18 08:58 Dose: 12.5 mg Clonidine (Catapres) 0.2 mg PO DAILYPRN PRN PRN Reason: SBP Greater Than 170 Last Admin: 08/05/18 10:36 Dose: 0.2 mg Dextrose/Water (Dextrose 50%) 25 gm SLOW IVP PRN PRN PRN Reason: Hypoglycemia Diltiazem HCl (Cardizem Cd) 120 mg PO BID [facility] Last Admin: 08/05/18 09:00 Dose: 120 mg Finasteride (Proscar) 5 mg PO DAILY [facility] Last Admin: 08/05/18 08:58 Dose: 5 mg Furosemide (Lasix) 20 mg PO DAILY [facility] Glucagon (Glucagon) 1 mg IM PRN PRN PRN Reason: Hypoglycemia Guaifenesin/Dextromethorphan (Mucinex Dm) 2 tab PO Q12HR [facility] Dextrose/Water (D5w) 1,000 mls @ 0 mls/hr IV .Q0M PRN PRN Reason: Hypoglycemia Azithromycin 500 mg/ Sodium (Chloride) 250 mls @ 250 mls/hr IVPB Q24HR [facility] Last Admin: 08/05/18 06:14 Dose: 250 mls Ceftriaxone Sodium 1 gm/ (Sodium Chloride) 100 mls @ 200 mls/hr IVPB Q24HR [facility] Last Admin: 08/05/18 09:02 Dose: 100 mls Insulin Human Lispro (Humalog) 0 units SC .MILD SLIDING SCALE PRN PRN Reason: Mild Correctional Scale Last Admin: 08/05/18 12:06 Dose: 3 unit Insulin Human Lispro (Humalog) 0 units SC .BEDTIME SLIDING SC PRN PRN Reason: Bedtime Correctional Scale Lisinopril (Zestril) 20 mg PO BID [facility] Last Admin: 08/05/18 09:01 Dose: 20 mg Methylprednisolone Sodium Succinate (Solu-Medrol) 40 mg IVP Q8HR [facility] Last Admin: 08/05/18 14:07 Dose: 40 mg Mometasone Furoate (Asmanex Hfa 200 Mcg) 1 puff INH DAILY-RT [facility] Ondansetron HCl (Zofran) 4 mg IVP Q6H PRN PRN Reason: Nausea/Vomiting Polyethylene Glycol (Miralax) 17 gm PO DAILY [facility] Rosuvastatin Calcium (Crestor) 5 mg PO HS [facility] Senna/Docusate Sodium (Senokot S) 2 tab PO BIDPRN PRN PRN Reason: Constipation Sodium Chloride (Flush - Normal Saline) 10 ml IVF Q12HR [facility] Last Admin: 08/05/18 09:02 Dose: 10 ml Sodium Chloride (Flush - Normal Saline) 10 ml IVF PRN PRN PRN Reason: Saline Flush Tamsulosin HCl (Flomax) 0.4 mg PO BID [facility] Last Admin: 08/05/18 09:01 Dose: 0.4 mg Zolpidem Tartrate (Ambien) 5 mg PO HSPRN PRN PRN Reason: Insomnia
--- NOTE | 2018-08-05 17:37 | CON ---
DATE OF CONSULTATION: HISTORY: This is an 83-year-old white male, who is a patient of Dr. Reynoso and I believe Dr. Reynoso is awaited. I was asked to see him because of urinary retention. He was recently in the hospital here, discharged I think like two days ago with a Aguayo catheter and the catheter was placed, Sunday, which would be 3 to 4 days ago for 1300 mL of urine and still has his Aguayo in. He has a rather relatively long urologic history, the patient was young, was doing self catheterization a few times a day for a number of years and saw Dr. Sharath De Leon and had two TURPs done and since that time, he was seeing Dr. Reynoso and he has had what sounds like a urethral dilatation for stricture disease. In any event, the catheter is indwelling. His urine is clear. He was readmitted with shortness of breath and failing to do well at home, so he has been readmitted. He has had Pulmonary see him and the Medicine Team has admitted him and he will likely be going to rehab for a week or two. His current vital signs are stable apart from high blood pressure. He is producing a clear yellow urine currently. He is on Proscar and tamsulosin, currently the tamsulosin is 0.4 mg twice a day. He has had blood cultures done and are pending. His white blood cell count when he came in was 28.4, it is now down to 19.2. His creatinine is 0.85. His urinalysis, which was from the , yesterday, showed many red cells, many white cells, 2+ bacteria. I am assuming this has been cultured, but has just made it to the computer yet. PHYSICAL EXAMINATION: He does not have flank tenderness. His abdomen is very soft and nontender without masses. The bladder is not distended. He is not circumcised, but there are no lesions. There is no phimosis. Testicles are descended without mass or tenderness. A Aguayo catheter appears to be in good position, draining clear urine. IMPRESSION: Urinary retention and currently managed with indwelling Aguayo. I think this Aguayo should be left in at least 10 days. It has only been a day for today before a voiding trial was even considered. I will let Dr. Reynoso know the patient was readmitted. I do not think he needs to stay in the hospital from a urologic standpoint once we know what his culture shows, that should probably be back tomorrow and I will follow along with you then. Hopefully, he could go to rehab pretty soon. Job ID: [id number]
[2018-08-05] MEDS: Albuterol Sulfate 2.5 mg/3 ml Neb NEB SCH ×2 (18:18→23:57)
[2018-08-05] MEDS: Rosuvastatin 5 MG TAB PO SCH (20:26)
[2018-08-05] MEDS: guaiFENesin/DM ER PO SCH (20:26)
[2018-08-05] MEDS: ALPRAZolam 0.5 MG TAB PO SCH (20:27)
[2018-08-05] MEDS: Enoxaparin Sodium 60 MG/0.6 ML SYRINGE SC SCH (20:27)
--- NOTE | 2018-08-05 22:34 | CON ---
DATE OF CONSULTATION: 08/05/2018 SERVICE: Pulmonary Medicine. REASON FOR CONSULTATION: COPD exacerbation. HISTORY OF PRESENT ILLNESS: The patient is an 83-year-old white male, who came into the hospital with increasing lower extremity discomfort. He had a therapeutic misadventure with statins. He was supposed to be taking half a pill. He was taking two tablets on a daily basis. As such, he had increasing difficulties with his legs. He was put in the hospital; however, because of some breathing difficulties his statin was interrupted altogether. Yesterday, he could barely get out of bed, and had profoundly reduced strength. Today, his family indicates that he is essentially back to his usual state of health. He has some yellow sputum production. His dyspnea is at baseline, his sputum production is at baseline. Denies any current fevers, chills, nausea, vomiting, or paroxysmal nocturnal dyspnea. He does not have any palpitations or chest discomfort and is otherwise returned to his usual state of health. He is looking at going to a rehabilitation facility shortly. PAST MEDICAL HISTORY: 1. Coronary artery disease. 2. Dyslipidemia. 3. Hypertension. 4. Prediabetes. 5. COPD, advanced. PAST SURGICAL HISTORY: Coronary artery bypass graft x5 vessels. FAMILY HISTORY: Noncontributory. SOCIAL HISTORY: He has a 20-30 pack-year history of smoking, but quit almost two decades ago. He does not drink or use any illicit drugs. He has no exposure to chemicals, dust, asbestos, or tuberculosis otherwise. ALLERGIES: Sulfa, cipro. MEDICATIONS: A list of inpatient medications were reviewed and updated. REVIEW OF SYSTEMS: General, head ears, eyes, nose, throat, cardiovascular, respiratory, GI, , musculoskeletal, neurologic, and skin is negative except as mentioned in HPI. PHYSICAL EXAMINATION: VITAL SIGNS: Afebrile, pulse 76, blood pressure 155/93, respirations 18, saturation 94% on room air. GENERAL: The patient is awake and alert, in no apparent distress. LUNGS: Rhonchi are present. There is profoundly reduced air entry and prolonged expiratory phase with polyphonic wheezing. No crackles. HEART: Normal rate, regular. ABDOMEN: Soft, nontender, nondistended. Bowel sounds are positive. MUSCULOSKELETAL: No cyanosis or clubbing. No pitting in the bilateral lower extremities. NEUROLOGIC: Grossly nonfocal. LABORATORY DATA: WBC 19.2, hemoglobin 14.5, platelets 364,000. Basic metabolic profile is essentially unremarkable except for a sodium of 131, which is downtrending. Troponin is negative x3, CK 32. Liver function studies were unremarkable. His BNP is elevated at 1000 which is in historic high. Urinalysis is positive for leukocyte esterase, blood, and white blood cells. 2+ bacteria positive. Blood cultures x2 are negative. IMAGING DATA: Chest x-ray demonstrates no acute cardiopulmonary abnormality. Severe emphysematous changes are noting. Chronic blunting of the left costophrenic angle is present. Of note, this is an AP film. Significant sternotomy wires are noted. ASSESSMENT: 1. Chronic obstructive pulmonary disease with acute exacerbation. 2. Myalgias, possibly secondary to statin. 3. Acute on chronic diastolic heart failure. DISCUSSION AND PLAN: The patient is stable for transition over to oral medications including azithromycin, and Omnicef. I will stop the IV antibiotics today, and put him on an additional four days of prednisone. We will schedule his albuterol q.6 hours as he takes at home. The patient and his family indicate to me that he is back to baseline from a respiratory standpoint and is certainly stable for transition to a rehabilitation facility if that is the next step. Pulmonary/Critical Care will continue to follow along while he remains in-house , but from my perspective, he is optimized for transition out of the hospital. 70 minutes have been devoted to this patient in various activities. I personally reviewed all imaging studies and laboratory data noted within this document. For fifty percent of this time, I was interacting with the patient at the bedside or coordinating care with the care team. For the remainder of the time I was immediately available to the patient in the hospital unit. Job ID: [id number] [facility]
[2018-08-06] MEDS: Azithromycin 500 MG in Sodium Chloride 0.9% 250 ML 250 ML IVPB SCH (06:12)
[2018-08-06] MEDS: HumaLOG 300 UNITS/3 ML VIAL SC PRN ×2 (06:13→11:32)
[2018-08-06] MEDS: Mometasone 200 MCG HFA INHALER INH SCH (07:32)
[2018-08-06] MEDS: Albuterol Sulfate 2.5 mg/3 ml Neb NEB SCH ×3 (07:35→19:28)
[2018-08-06] MEDS: cefTRIAXone\\ROCEPHIN 1 GM in Sodium Chloride 0.9% 100 ML IVPB SCH (08:20)
[2018-08-06] MEDS: Tamsulosin HCl 0.4 MG CAP PO SCH ×3 (08:21→21:46)
[2018-08-06] MEDS: Enoxaparin Sodium 60 MG/0.6 ML SYRINGE SC SCH ×2 (08:21→21:46)
[2018-08-06] MEDS: Aspirin 81 mg Enteric Coated Tablet PO SCH (08:21)
[2018-08-06] MEDS: predniSONE 20 MG TAB PO SCH (08:22)
[2018-08-06] MEDS: Furosemide 20 MG TAB PO SCH (08:22)
[2018-08-06] MEDS: guaiFENesin/DM ER PO SCH ×2 (08:22→21:46)
[2018-08-06] MEDS: Carvedilol 6.25 MG TAB PO SCH ×2 (08:23→17:26)
[2018-08-06] MEDS: Finasteride 5 MG TAB PO SCH (08:23)
[2018-08-06] MEDS: Lisinopril 20 MG TAB PO SCH ×2 (08:23→21:45)
[2018-08-06] MEDS: Polyethylene Glycol 3350 17 GM Packet PO SCH (08:25)
[2018-08-06] MEDS: ALPRAZolam 0.25 MG TAB PO SCH (08:25)
[2018-08-06 10:51] LABS: Hemoglobin 13.6 g/dL (14.0-18.0); Mean Corpuscular HGB CONC 32.6 g/dL (32.0-36.0); Mean Corpuscular Volume 91.8 fL (78.0-98.0); Mean Platelet Volume 7.3 fL (7.4-10.4); Platelet Count 363 thou/uL (130-400); RBC Distribution Width 12.7 % (11.5-14.5); Red Blood Cell (RBC) Count 4.54 mill/uL (4.70-6.10); White Blood Cell (WBC) Count 23.4 thou/uL (4.8-10.8)
--- NOTE | 2018-08-06 11:02 | PRG ---
DATE OF SERVICE: 08/06/2018 SERVICE: Pulmonary Medicine. INTERVAL HISTORY: The patient is doing really well from respiratory standpoint. He indicates that his breathing is at baseline. Denies any current cough, fevers, chills, nausea, or vomiting. His lower extremity swing, strength, and discomfort has improved. PHYSICAL EXAMINATION: VITAL SIGNS: Afebrile. Pulse 66, blood pressure 163/105, respirations are 18, and saturation 99% on room air. GENERAL: The patient is awake and alert, in no apparent distress. LUNGS: Rhonchi are present. There is decreased air entry. No prolonged expiratory phase. No crackles are appreciated. HEART: Normal rate and regular. ABDOMEN: Soft, nontender, and nondistended. Bowel sounds are positive. MUSCULOSKELETAL: No cyanosis or clubbing. No pitting in the bilateral lower extremities. NEUROLOGIC: Grossly nonfocal. LABORATORY DATA: Blood sugar ranges from 154 to 228. Troponin is negative x1. Nonhemolytic Streptococcus is growing in the urine. Blood cultures are otherwise negative x2. IMAGING: Echocardiogram demonstrates a 40% ejection fraction with a moderately dilated left atrium. Moderate mitral regurgitation is present. ASSESSMENT: 1. Chronic obstructive pulmonary disease with acute exacerbation, improving. 2. Myalgia, possibly statin induced. 3. Chronic systolic and diastolic heart failure. 4. Mitral regurgitation, moderate. DISCUSSION AND PLAN: Azithromycin and Rocephin can be turned over to oral equivalents, and the patient can be transitioned out of the hospital from a purely respiratory perspective provided that no additional workup is warranted for the cardiac findings. If he remains inhouse, Pulmonary will continue to follow. From my perspective, he will only need 5 days of steroids and antibiotics. Job ID: [id number]
[2018-08-06 11:12] LABS: Anion Gap 13 mmol/L (10-20); BUN (Urea Nitrogen) 20 mg/dL (8.4-25.7); Calc. Creatinine Clearance 47 mL/min (70-130); Calcium 9.2 mg/dL (7.8-10.44); Carbon Dioxide 26 mmol/L (23-31); Chloride 94 mmol/L (98-107); Estimated GFR-MDRD 66; Glucose 200 mg/dL (83-110); Potassium 3.8 mmol/L (3.5-5.1); Sodium 129 mmol/L (136-145)
[2018-08-06 12:07] LABS: Band 7 % (5-11); Lymphocytes 7 % (21-51); MDiff Complete? YES; Monocytes 3 % (0-10); Neutrophil 78 % (42-75); RBC Morphology Normal; Reactive Lymphocytes 5 % (0-10)
--- NOTE | 2018-08-06 14:12 | PDOC.PN ---
- Subjective Encounter Start Date: 08/06/18 Encounter Start Time: 07:20 Pt seen for followup re; COPD exacerbation. Feels better. - Objective Resuscitation Status - Order Detail: 08/05/18 00:03 Resuscitation Status Routine Resuscitation Status: FULL: Full Resuscitation Discussed with: patient and family MAR Reviewed: Yes Vital Signs & Weight: Vital Signs (12 hours) Temp Pulse Pulse Pulse Resp BP BP 08/06/18 12:40 60 20 08/06/18 12:00 97.2 F L 60 20 08/06/18 09:41 64 70 161/83 H 08/06/18 08:55 08/06/18 08:23 66 163/105 H 08/06/18 08:00 97.8 F 66 18 08/06/18 07:35 68 16 08/06/18 07:32 68 16 08/06/18 04:00 98.2 F 67 18 BP BP Pulse Ox 08/06/18 12:40 95 08/06/18 12:00 147/78 H 92 L 08/06/18 09:41 142/80 H 08/06/18 08:55 94 L 08/06/18 08:23 08/06/18 08:00 163/105 H 99 08/06/18 07:35 94 L 08/06/18 07:32 94 L 08/06/18 04:00 173/87 H 92 L Weight Weight 135 lb 11.2 oz I&O: 08/05/18 08/06/18 08/07/18 06:59 06:59 06:59 Intake Total 380 400 Output Total 400 Balance -20 400 Result Diagrams: 08/06/18 10:27 08/06/18 10:27 Additional Labs: Accuchecks 08/06/18 08/06/18 08/05/18 10:37 05:20 20:39 POC Glucose 202 H 173 H 191 H 08/05/18 16:55 POC Glucose 154 H labs reviewed by me Phys Exam - Physical Examination Constitutional: NAD HEENT: moist MMs Neck: supple Respiratory: clear to auscultation bilateral Cardiovascular: RRR Gastrointestinal: soft Neurological: moves all 4 limbs Psychiatric: normal affect Dx/Plan (1) COPD exacerbation Code(s): J44.1 - CHRONIC OBSTRUCTIVE PULMONARY DISEASE W (ACUTE) EXACERBATION Status: Acute Comment: Improving, switch to oral steroids and antibiotics (2) UTI (urinary tract infection) Status: Acute Comment: start cefdinir (3) BPH (benign prostatic hyperplasia) Code(s): N40.0 - BENIGN PROSTATIC HYPERPLASIA WITHOUT LOWER URINRY TRACT SYMP Status: Chronic Comment: s/p Aguayo catheter, appreciate urology service input (4) CAD (coronary artery disease) Code(s): I25.10 - ATHSCL HEART DISEASE OF [place] CORONARY ARTERY W/O ANG PCTRS Status: Chronic Comment: stable (5) HLD (hyperlipidemia) Code(s): E78.5 - HYPERLIPIDEMIA, UNSPECIFIED Status: Chronic Comment: statin on hold (6) HTN (hypertension) Code(s): I10 - ESSENTIAL (PRIMARY) HYPERTENSION Status: Chronic Comment: controlled (7) Acute respiratory failure with hypoxia Code(s): J96.01 - ACUTE RESPIRATORY FAILURE WITH HYPOXIA Status: Resolved - Plan * . Review of Systems - Review of Systems Respiratory: Cough, SOB with Excertion, Sputum. negative: Dry, Shortness of Breath, Hemoptysis, Pleuritic Pain, Wheezing Cardiovascular: negative: chest pain, palpitations, orthopnea, paroxysmal nocturnal dyspnea, edema, light headedness - Medications/Allergies Allergies/Adverse Reactions: Allergies Allergy/AdvReac Type Severity Reaction Status Date / Time Sulfa (Sulfonamide Allergy Unknown Verified 08/05/18 05:50 Antibiotics) ciprofloxacin [From Cipro] Allergy Verified 08/05/18 05:50 ciprofloxacin HCl Allergy Verified 08/05/18 05:50 [From Cipro] hydralazine Allergy Verified 08/05/18 05:50 ipratropium Allergy Verified 08/05/18 05:50 levofloxacin Allergy Verified 08/05/18 05:50 amox-clav Allergy Mild Uncoded 10/06/16 08:56 Medications: Current Medications Acetaminophen (Tylenol) 650 mg PO Q4H PRN PRN Reason: Headache/Fever/Mild Pain (1-3) Albuterol Sulfate (Ventolin) 2.5 mg NEB [id number] PRN PRN Reason: SOB &/or Wheezing Albuterol Sulfate (Ventolin) 2.5 mg NEB [id number] Last Admin: 08/06/18 12:40 Dose: 2.5 mg Alprazolam (Xanax) 0.25 mg PO BIDPRN PRN PRN Reason: Anxiety/Agitation Last Admin: 08/05/18 10:36 Dose: 0.25 mg Alprazolam (Xanax) 0.25 mg PO QAM [facility] Last Admin: 08/06/18 08:25 Dose: 0.25 mg Alprazolam (Xanax) 0.5 mg PO HS [facility] Last Admin: 08/05/18 20:27 Dose: 0.5 mg Aspirin (Ecotrin) 81 mg PO DAILY [facility] Last Admin: 08/06/18 08:21 Dose: 81 mg Azithromycin (Zithromax) 250 mg PO DAILY [facility] Stop: 08/10/18 09:01 Carvedilol (Coreg) 12.5 mg PO BID[facility] Last Admin: 08/06/18 08:23 Dose: 12.5 mg Cefdinir (Omnicef) 300 mg PO BID [facility] Clonidine (Catapres) 0.2 mg PO DAILYPRN PRN PRN Reason: SBP Greater Than 170 Last Admin: 08/05/18 10:36 Dose: 0.2 mg Dextrose/Water (Dextrose 50%) 25 gm SLOW IVP PRN PRN PRN Reason: Hypoglycemia Diltiazem HCl (Cardizem Cd) 120 mg PO BID [facility] Last Admin: 08/06/18 08:23 Dose: 120 mg Enoxaparin Sodium (Lovenox) 60 mg SC 0900,2100 [facility] Last Admin: 08/06/18 08:21 Dose: 60 mg Finasteride (Proscar) 5 mg PO DAILY [facility] Last Admin: 08/06/18 08:23 Dose: 5 mg Furosemide (Lasix) 20 mg PO DAILY [facility] Last Admin: 08/06/18 08:22 Dose: 20 mg Glucagon (Glucagon) 1 mg IM PRN PRN PRN Reason: Hypoglycemia Guaifenesin/Dextromethorphan (Mucinex Dm) 2 tab PO Q12HR [facility] Last Admin: 08/06/18 08:22 Dose: 2 tab Dextrose/Water (D5w) 1,000 mls @ 0 mls/hr IV .Q0M PRN PRN Reason: Hypoglycemia Azithromycin 500 mg/ Sodium (Chloride) 250 mls @ 250 mls/hr IVPB Q24HR [facility] Last Admin: 08/06/18 06:12 Dose: 250 mls Ceftriaxone Sodium 1 gm/ (Sodium Chloride) 100 mls @ 200 mls/hr IVPB Q24HR [facility] Last Admin: 08/06/18 08:20 Dose: 100 mls Insulin Human Lispro (Humalog) 0 units SC .MILD SLIDING SCALE PRN PRN Reason: Mild Correctional Scale Last Admin: 08/06/18 11:32 Dose: 3 unit Insulin Human Lispro (Humalog) 0 units SC .BEDTIME SLIDING SC PRN PRN Reason: Bedtime Correctional Scale Lisinopril (Zestril) 20 mg PO BID [facility] Last Admin: 08/06/18 08:23 Dose: 20 mg Mometasone Furoate (Asmanex Hfa 200 Mcg) 1 puff INH DAILY-RT [facility] Last Admin: 08/06/18 07:32 Dose: 1 puff Ondansetron HCl (Zofran) 4 mg IVP Q6H PRN PRN Reason: Nausea/Vomiting Polyethylene Glycol (Miralax) 17 gm PO DAILY [facility] Last Admin: 08/06/18 08:25 Dose: Not Given Prednisone (Prednisone) 40 mg PO QAM-WM [facility] Stop: 08/09/18 08:01 Last Admin: 08/06/18 08:22 Dose: 40 mg Rosuvastatin Calcium (Crestor) 5 mg PO HS [facility] Last Admin: 08/05/18 20:26 Dose: 5 mg Senna/Docusate Sodium (Senokot S) 2 tab PO BIDPRN PRN PRN Reason: Constipation Sodium Chloride (Flush - Normal Saline) 10 ml IVF Q12HR [facility] Last Admin: 08/06/18 08:34 Dose: 10 ml Sodium Chloride (Flush - Normal Saline) 10 ml IVF PRN PRN PRN Reason: Saline Flush Tamsulosin HCl (Flomax) 0.4 mg PO BID [facility] Last Admin: 08/06/18 08:33 Dose: Not Given Zolpidem Tartrate (Ambien) 5 mg PO HSPRN PRN PRN Reason: Insomnia
--- NOTE | 2018-08-06 19:15 | CON ---
DATE OF CONSULTATION: HISTORY OF PRESENT ILLNESS: Catarino Moore is an 83-year-old white male, who was initially evaluated in 11/1997, 2 to 3 months prior to that, he developed substernal chest burning and shortness of breath while cutting his lawn. This was relieved with rest. After that, he had several episodes all associated with exertion. EKG when he presented to Dr. Sanabria with his history showed inverted T-waves in V3 to V6. He was placed on aspirin as well as atenolol and was recommended he undergo cardiac catheterization. However, he declined. He did not have insurance, so did not wish to go to the hospital. He continued to decline cardiac evaluation until he reached Medicare age. He did stop smoking soon after the time that I saw him and told him that he needed to stop. He was seen intermittently and each time it was recommended he undergo cardiac catheterization. He continued to have anterolateral T-wave changes. However, he continued to decline further evaluation. He was not seen from 10/2000 until 01/2003, when he was seen with chest discomfort. This was 4 or 5 days after he underwent umbilical hernia repair. He was found to have [address]-segment depression in V4 through V6. He was started on Lopressor as well as Plavix, aspirin, and Lovenox and he had no further chest discomfort. He was found to have had a non-Q-wave infarction with peak CK of 1216, MB 140.6, troponin I of 34.7. He underwent cardiac catheterization, which revealed ejection fraction of 50% to 55% with mild mitral regurgitation. There was an 80% lesion in the LAD after a high first diagonal, 99% mid LAD, 70% lesion in the high first diagonal. The circumflex had a 99% proximal stenosis and the 1st and 2nd obtuse marginal filled retrograde from the left. Right coronary artery had a 99% mid stenosis and a 70% followed by another 70% distal stenosis. He then underwent CABG x5 by Dr. Frazier, with [place] to the LAD, left radial artery to the first diagonal, vein graft to the obtuse marginal, vein graft to the right coronary artery and sequentially to the right posterior descending. After surgery, it took some time to wean him from the ventilator due to his pulmonary status. He was diuresed and eventually extubated. He had atrial fibrillation, controlled with intravenous Cardizem and later was placed back on his beta jamila. He was hypoxic at the time of discharge. He was sent home with oxygen. He then presented again 2 or 3 weeks later with gross volume overload and wheezing. He also had to undergo repair of sternal dehiscence. Mr. Moore was continued to be followed in the office over the ensuing years and in general has been fairly compliant. In 11/2016, he had an echocardiogram performed here at the hospital with ejection fraction of 50% to 55% with moderate mitral regurgitation, aortic valve sclerosis, and mild tricuspid regurgitation. His biggest problem has been his COPD. Over the last 3 to 4 weeks, he has been having problems with increased leg pain and whenever he would go to cardiac rehab the next day, his legs would hurt significantly. He then had problems even standing. He also was seen in the emergency room for increased shortness of breath. He was brought back to the emergency room when he could not even stand. He denies any chest discomfort. PAST MEDICAL HISTORY: Hypertension, coronary artery disease, hyperlipidemia, prediabetes, severe COPD. MEDICATIONS: When he was last seen in the office 05/23, include diltiazem 120 daily, Proscar 5 mg daily, alprazolam 0.25 mg daily, carvedilol 12.5 mg b.i.d., albuterol nebs, lisinopril 20 mg b.i.d., Flomax 0.4 daily, Asmanex, atorvastatin 80 mg 1/2 tablet daily, aspirin 81 mg daily, furosemide 20 mg daily. OPERATIONS: CABG, repair of sternal dehiscence, cataract surgery, hernia surgery, and TURP x2. FAMILY HISTORY: Father had CABG and another brother had coronary artery disease. SOCIAL HISTORY: He smoked 4 to 5 packs per day for 40 years but stopped 16 years ago. He occasionally drinks. ALLERGIES: SULFA, CIPRO, HYDRALAZINE, IPRATROPIUM, LEVOFLOXACIN, AMOXICILLIN. REVIEW OF SYSTEMS: A 10-point review of systems is otherwise unremarkable. PHYSICAL EXAMINATION: VITAL SIGNS: Blood pressure 116/66, pulse of 68 atrial fibrillation on the monitor. HEENT: PERRL. CHEST: Reveals expiratory wheezing, occasional rhonchi. CARDIOVASCULAR: S1, S2 normal without any S3 or S4. ABDOMEN: Normal bowel sounds without tenderness, organomegaly. EXTREMITIES: Revealed 1 to 2+ pretibial edema. NEUROLOGICAL: Grossly intact. SKIN: Warm and dry. LABORATORY DATA: EKG reveals atrial fibrillation with left axis deviation, right bundle-branch block, lateral T-wave changes. Echocardiogram revealed mild left ventricular systolic dysfunction with ejection fraction of 40% to 45% which is new, moderate left atrial enlargement, moderate mitral regurgitation, aortic valve sclerosis, mild tricuspid regurgitation. Sodium 129, potassium 3.8, chloride 94, carbon dioxide 26, BUN 20, creatinine 1.07. Cardiac enzymes have been unremarkable. Hemoglobin A1c 6.3. BNP 1062.3. CK 40, hemoglobin 13.6, hematocrit 41.7, white count 23,400, platelets 363,000. IMPRESSION: 1. 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 2. Chronic obstructive pulmonary disease exacerbation. 3. Acute on chronic systolic and diastolic heart failure. 4. Status post coronary artery bypass grafting x5. 5. Non-Q-wave infarction prior to bypass surgery. 6. Hypertension. 7. Hyperlipidemia with most recent LDL of 60. 8. Former smoker. 9. Positive family history. 10. Benign prostatic hypertrophy. 11. New onset atrial fibrillation. PLAN: Mr. Moore will be placed on high dose Co Q10. Statin drugs should probably be avoided in the future and consideration will be given to injectable medications. He does have new onset atrial fibrillation and consideration needs to be given to chronic anticoagulation. However, I feel that his muscle strength needs to be improved so that he does not have falls while on the anticoagulation. His rate appears to be adequately controlled at the present time. Job ID: [id number]
[2018-08-06] MEDS: Ubidecarenone 50 MG CAP PO SCH ×2 (21:44→22:03)
[2018-08-06] MEDS: Rosuvastatin 5 MG TAB PO SCH (21:44)
[2018-08-06] MEDS: ALPRAZolam 0.5 MG TAB PO SCH (21:45)
[2018-08-06] MEDS: Cefdinir 300 MG CAP PO SCH (21:45)
[2018-08-07] MEDS: Albuterol Sulfate 2.5 mg/3 ml Neb NEB SCH ×3 (00:38→13:17)
[2018-08-07] MEDS: cloNIDine 0.2 MG TAB PO PRN (04:50)
[2018-08-07] MEDS: ALPRAZolam 0.25 MG TAB PO PRN (04:51)
[2018-08-07 05:55] LABS: #Lymphocytes 0.7 thou/uL (1.20-3.40); #Monocytes 1.9 thou/uL (0.11-0.59); #Neutrophils 16.6 thou/uL (1.40-6.50); %Basophils 0.2 % (0.0-1.0); %Eosinophils 0.2 % (0.0-10.0); %Lymphocytes 3.7 % (21.0-51.0); Hemoglobin 13.3 g/dL (14.0-18.0); Mean Corpuscular HGB CONC 32.3 g/dL (32.0-36.0); Mean Corpuscular Hemoglobin 29.9 pg (27.0-31.0); Mean Corpuscular Volume 92.7 fL (78.0-98.0); Mean Platelet Volume 7.4 fL (7.4-10.4); Platelet Count 377 thou/uL (130-400); RBC Distribution Width 12.7 % (11.5-14.5); Red Blood Cell (RBC) Count 4.46 mill/uL (4.70-6.10); White Blood Cell (WBC) Count 19.3 thou/uL (4.8-10.8)
[2018-08-07 06:14] LABS: Anion Gap 11 mmol/L (10-20); BUN (Urea Nitrogen) 21 mg/dL (8.4-25.7); Calc. Creatinine Clearance 57 mL/min (70-130); Carbon Dioxide 28 mmol/L (23-31); Chloride 95 mmol/L (98-107); Estimated GFR-MDRD 83; Glucose 109 mg/dL (83-110); Potassium 3.4 mmol/L (3.5-5.1); Sodium 131 mmol/L (136-145)
[2018-08-07] MEDS: Mometasone 200 MCG HFA INHALER INH SCH (07:09)
[2018-08-07] MEDS ORDERED: Azithromycin 250 MG TAB PO SCH (09:00)
[2018-08-07] MEDS: Finasteride 5 MG TAB PO SCH (09:18)
[2018-08-07] MEDS: guaiFENesin/DM ER PO SCH (09:18)
[2018-08-07] MEDS: Furosemide 20 MG TAB PO SCH (09:18)
[2018-08-07] MEDS: predniSONE 20 MG TAB PO SCH (09:18)
[2018-08-07] MEDS: Enoxaparin Sodium 60 MG/0.6 ML SYRINGE SC SCH (09:19)
[2018-08-07] MEDS: Polyethylene Glycol 3350 17 GM Packet PO SCH (09:20)
[2018-08-07] MEDS: Aspirin 81 mg Enteric Coated Tablet PO SCH (09:20)
[2018-08-07] MEDS: Carvedilol 6.25 MG TAB PO SCH (09:20)
[2018-08-07] MEDS: Lisinopril 20 MG TAB PO SCH (09:20)
[2018-08-07] MEDS: Cefdinir 300 MG CAP PO SCH (09:21)
[2018-08-07] MEDS: Tamsulosin HCl 0.4 MG CAP PO SCH (09:21)
[2018-08-07] MEDS: ALPRAZolam 0.25 MG TAB PO SCH (09:21)
[2018-08-07] MEDS ORDERED: Ciprofloxacin 500 MG TAB PO SCH ×2 (11:45→20:00)
[2018-08-07] MEDS ORDERED: Albuterol Sulfate 2.5 mg/3 ml Neb ONE (12:13)
--- NOTE | 2018-08-07 15:40 | PRG ---
DATE OF SERVICE: 08/07/2018 SERVICE: Pulmonary Medicine. INTERVAL HISTORY: The patient is doing okay from respiratory standpoint. Breathing comfortably. Denies any current chest pain, fevers, or chills. His cough is at baseline. His dyspnea on exertion is at baseline. His leg strength is improving day by day. Otherwise, he has no specific complaints. PHYSICAL EXAMINATION: VITAL SIGNS: Afebrile. Pulse 71, blood pressure 176/92, respirations are 18, and saturation 95% on room air. GENERAL: The patient is awake and alert, in no apparent distress. LUNGS: Extensive rhonchi are present. There is also wheezing, both inspiration and expiration. No crackles are appreciated. HEART: Normal rate and regular. ABDOMEN: Soft, nontender, and nondistended. Bowel sounds are positive. MUSCULOSKELETAL: No cyanosis or clubbing. No pitting in the bilateral lower extremities. NEUROLOGIC: Grossly nonfocal. LABORATORY DATA: WBC 19.3, hemoglobin 13.3, and platelets are 377,000. Creatinine 0.88. Basic metabolic profile is otherwise unremarkable. Potassium is 3.4 and gently downtrending, sodium 131 and improving. Enterococcus faecalis is growing in the urine. This is a pansensitive organism. Blood cultures x2 remain negative. ASSESSMENT: 1. Chronic obstructive pulmonary disease with acute exacerbation, mild. 2. Myalgia, statin induced. 3. Chronic systolic and diastolic heart failure. 4. Mitral regurgitation, moderate. DISCUSSION AND PLAN: The patient can complete a 5-day course of antibiotics and steroids. At this point from a purely respiratory perspective, the patient remains stable for transition out of the hospital. Home inhalers will be resumed on discharge from the hospital. He will follow up with Dr. Draper in the outpatient setting as previously directed. Job ID: [id number]
[2018-08-07 15:45] VITALS: TEMP 98.1
[2018-08-07] MEDS ORDERED: Potassium Chloride 20 MEQ TAB PO SCH (15:45)
[2018-08-07 15:48] VITALS: BP 164/94
--- NOTE | 2018-08-07 16:28 | DIS ---
DATE OF ADMISSION: 08/05/2018 DATE OF DISCHARGE: 08/07/2018 PRIMARY CARE PROVIDER: Gladys Sargent [facility] DISCHARGE DIAGNOSES: 1. Urinary tract infection. 2. Chronic obstructive pulmonary disease exacerbation. 3. Urinary retention. 4. Antalgic gait. 5. New onset atrial fibrillation. 6. Statin toxicity. CONSULTATIONS DURING THIS HOSPITALIZATION: 1. Pulmonology, Dr. Cintron. 2. Urology, Dr. Mckenzie. 3. Cardiology, Dr. Spears. CONDITION OF PATIENT ON THE DAY OF DISCHARGE: Stable. I assessed Mr. Moore on the day of discharge. He denies any chest pain or shortness of breath. Vital signs are stable. S1 and S2 are heard, regular. Lungs are clear to auscultation bilaterally. DISCHARGE MEDICATIONS: 1. Mucinex 1200 mg 2 times a day. 2. Albuterol nebulizers 3 times a day. 3. Xanax 0.25 mg 3 times a day. 4. Aspirin 81 mg daily. 5. Atorvastatin 40 mg daily. 6. Clonidine 0.2 mg daily as needed. 7. Diltiazem 120 mg 2 times a day. 8. Finasteride 5 mg daily. 9. Lasix 20 mg daily. 10. Lisinopril 20 mg 2 times a day. 11. Asmanex 220 mg one puff daily. 12. MiraLAX 17 g daily. 13. Coreg 12.5 mg 2 times a day. 14. Macrobid 100 mg 2 times a day. 15. Prednisone 40 mg daily for 2 more days. 16. Flomax 0.4 mg 2 times a day. 17. Coenzyme Q10 of 400 mg at bedtime. HOSPITAL COURSE: Mr. Moore is a pleasant 83-year-old gentleman, who was admitted to [facility] on August 05, 2018, for urinary tract infection and antalgic gait. Please refer to Dr. Caceres's history and physical note dated August 05, 2018 for further details. He was also found to be in COPD exacerbation. He was treated with oxygen, steroids, bronchodilators, and antibiotics and improved significantly. He was also found to have urinary tract infection with Enterococcus faecalis which was resistant to tetracycline, but was sensitive to ampicillin, ciprofloxacin, imipenem, levofloxacin, linezolid, nitrofurantoin, penicillin, piperacillin, and vancomycin. He also had muscle pains in his lower extremities, most likely secondary to statin toxicity. He was seen by Cardiology Service. He has been started on coenzyme Q10. He also had new onset atrial fibrillation during this hospitalization, which was another reason for being seen by Cardiology Service. He is being continued on Cardizem CD and aspirin. Because of high falls risk, he has not been started on anticoagulation. He was also seen by Urology Service because of urinary retention. He currently has a Aguayo catheter. At the time of his admission, Mr. Moore was awaiting approval for inpatient rehab. The process was restarted during this hospitalization. He has been approved for inpatient rehab and [facility]. On the day of discharge, Mr. Moore has white count 10584, hemoglobin 13.3, platelet count 377,000. Sodium 131, potassium 3.4, which is being replaced and creatinine 0.88. Many thanks for allowing me to participate in the patient's care. Please feel free to contact me with any questions or concerns. DISCHARGE DESTINATION: [facility]. TIME SPENT: Total amount of time spent coordinating this discharge: 34 minutes. Job ID: [id number] MTDD
--- NOTE | 2018-08-07 18:55 | PDOC.EVN ---
Event Note - Event Note Event Note: Statin was crossed out of discharge medication list (by me) before patient left with EMS.
== END 2018-08-07 16:14 | DRG 189 ==
LOC: ERS 20:11 → 2SE 08-05 00:05
PROVIDERS: ADMIT Internal Medicine; ATTEND Internal Medicine
DX: J96.01 Acute respiratory failure with hypoxia (principal); I50.43 Acute on chronic combined systolic (congestive) and diastolic (congestive) heart failure; J44.1 Chronic obstructive pulmonary disease with (acute) exacerbation; N39.0 Urinary tract infection, site not specified; R73.03 Prediabetes; I25.10 Atherosclerotic heart disease of native coronary artery without angina pectoris; M79.10 Myalgia, unspecified site; T50.995A Adverse effect of other drugs, medicaments and biological substances, initial encounter; B95.2 Enterococcus as the cause of diseases classified elsewhere; I48.91 Unspecified atrial fibrillation; E78.5 Hyperlipidemia, unspecified; I34.0 Nonrheumatic mitral (valve) insufficiency; N40.0 Benign prostatic hyperplasia without lower urinary tract symptoms; R26.89 Other abnormalities of gait and mobility; I11.0 Hypertensive heart disease with heart failure; R33.9 Retention of urine, unspecified; I35.8 Other nonrheumatic aortic valve disorders; I25.2 Old myocardial infarction; Z79.899 Other long term (current) drug therapy; Z79.51 Long term (current) use of inhaled steroids; Z95.1 Presence of aortocoronary bypass graft; Z87.891 Personal history of nicotine dependence; Z88.2 Allergy status to sulfonamides; Z88.8 Allergy status to other drugs, medicaments and biological substances; Z88.0 Allergy status to penicillin; Z82.49 Family history of ischemic heart disease and other diseases of the circulatory system; Z83.3 Family history of diabetes mellitus
CPT/HCPCS: 36415; 36416; 51702; 71045; 80048; 80053; 81003; 81015; 82550; 83036; 83880; 84484; 85025; 87040; 87086; 87186; 93005; 93306; 93798; 94640; 94760; 96365; 96367; 96375; J0456; J0692; J0696; J1650; J1940; J2920; J2930; J3370; J7050; J7611

== ENCOUNTER 2018-08-24 02:10 | Emergency (ER) | payer MEDICARE ==
[2018-08-24 05:39] LABS: #Basophils 0.1 thou/uL (0.0-0.2); #Eosinphils 0.1 thou/uL (0.0-0.7); #Lymphocytes 1.2 thou/uL (1.20-3.40); #Monocytes 1.3 thou/uL (0.11-0.59); #Neutrophils 8.9 thou/uL (1.40-6.50); %Basophils 0.6 % (0.0-1.0); %Monocytes 11.4 % (0.0-10.0); %Neutrophils 76.9 % (42.0-75.0); Hemoglobin 10.8 g/dL (14.0-18.0); Mean Corpuscular HGB CONC 33.2 g/dL (32.0-36.0); Mean Corpuscular Hemoglobin 30.6 pg (27.0-31.0); Platelet Count 263 thou/uL (130-400); RBC Distribution Width 12.9 % (11.5-14.5); Red Blood Cell (RBC) Count 3.53 mill/uL (4.70-6.10); White Blood Cell (WBC) Count 11.5 thou/uL (4.8-10.8)
[2018-08-24 05:58] LABS: ALT (SGPT) 11 U/L (8-55); AST (SGOT) 13 U/L (5-34); Albumin 3.4 g/dL (3.4-4.8); Alkaline Phosphatase 92 U/L (40-150); Anion Gap 13 mmol/L (10-20); BUN (Urea Nitrogen) 16 mg/dL (8.4-25.7); Bilirubin, Total 0.8 mg/dL (0.2-1.2); Calc. Creatinine Clearance 0 mL/min (70-130); Calcium 9.2 mg/dL (7.8-10.44); Carbon Dioxide 27 mmol/L (23-31); Chloride 97 mmol/L (98-107); Estimated GFR-MDRD 72; Globulin 2.1 g/dL (2.4-3.5); Glucose 110 mg/dL (83-110); Protein, Total 5.5 g/dL (5.8-8.1); Sodium 134 mmol/L (136-145)
== END 2018-08-24 07:53 | disposition home or self-care (01) ==
LOC: ERS 02:10
DX: N13.9 Obstructive and reflux uropathy, unspecified (principal); I25.10 Atherosclerotic heart disease of native coronary artery without angina pectoris; I10 Essential (primary) hypertension; J44.9 Chronic obstructive pulmonary disease, unspecified; Z79.899 Other long term (current) drug therapy; Z79.51 Long term (current) use of inhaled steroids
CPT/HCPCS: 36415; 51703; 80053; 85025

== ENCOUNTER 2018-08-25 05:41 | Emergency (ER) | payer MEDICARE ==
[2018-08-25] MEDS ORDERED: Lidocaine Viscous Sol 2% 15 ml UD Cup ONE (06:53)
== END 2018-08-25 07:59 | disposition home or self-care (01) ==
LOC: ERS 05:41
DX: Z46.6 Encounter for fitting and adjustment of urinary device (principal); N13.9 Obstructive and reflux uropathy, unspecified; I25.10 Atherosclerotic heart disease of native coronary artery without angina pectoris; I10 Essential (primary) hypertension; J45.909 Unspecified asthma, uncomplicated; Z87.891 Personal history of nicotine dependence; Z79.899 Other long term (current) drug therapy; Z79.82 Long term (current) use of aspirin
CPT/HCPCS: 51702

== ENCOUNTER 2018-10-07 11:31 | Inpatient (IN) | payer MEDICARE ==
--- NOTE | 2018-10-07 12:05 | RAD ---
Chest one view HISTORY: Dyspnea. COMPARISON: 08/04/2018. FINDINGS: Cardiac silhouette is magnified by projection. Pulmonary vasculature is within normal limit s. Lungs remain hyperinflated. Ill-defined predominantly interstitial parenchymal opacity has progressed on the right and is unchang ed on the left. Upper lobes remain well inflated. Mediastinum is midline with postoperative changes and aortic calcification. compliance monitor leads overlie the chest. IMPRESSION: Bibasilar interstitial infiltrates. Right basilar infiltrate has progressed since the exa m from 2 months ago. Cause is not evident. COPD. Atherosclerosis.
[2018-10-07] MEDS ORDERED: Albuterol Sulfate 2.5 mg/3 ml Neb ONE (12:08)
[2018-10-07 12:09] LABS: #Eosinphils 0.1 thou/uL (0.0-0.7); #Lymphocytes 0.6 thou/uL (1.20-3.40); #Monocytes 1.3 thou/uL (0.11-0.59); #Neutrophils 8.3 thou/uL (1.40-6.50); %Basophils 0.2 % (0.0-1.0); %Lymphocytes 6.2 % (21.0-51.0); %Monocytes 12.2 % (0.0-10.0); %Neutrophils 80.5 % (42.0-75.0); Hemoglobin 11.7 g/dL (14.0-18.0); Mean Corpuscular HGB CONC 31.5 g/dL (32.0-36.0); Mean Corpuscular Volume 85.8 fL (78.0-98.0); Mean Platelet Volume 6.9 fL (7.4-10.4); Platelet Count 402 thou/uL (130-400); RBC Distribution Width 13.1 % (11.5-14.5); Red Blood Cell (RBC) Count 4.32 mill/uL (4.70-6.10); White Blood Cell (WBC) Count 10.3 thou/uL (4.8-10.8)
[2018-10-07 12:29] LABS: ALT (SGPT) 13 U/L (8-55); AST (SGOT) 14 U/L (5-34); Albumin 3.9 g/dL (3.4-4.8); Alkaline Phosphatase 110 U/L (40-150); Anion Gap 13 mmol/L (10-20); BUN (Urea Nitrogen) 11 mg/dL (8.4-25.7); Bilirubin, Total 0.8 mg/dL (0.2-1.2); Calc. Creatinine Clearance 0 mL/min (70-130); Calcium 9.4 mg/dL (7.8-10.44); Carbon Dioxide 28 mmol/L (23-31); Chloride 98 mmol/L (98-107); Estimated GFR-MDRD 78; Globulin 2.1 g/dL (2.4-3.5); Glucose 167 mg/dL (83-110); Potassium 3.6 mmol/L (3.5-5.1); Sodium 135 mmol/L (136-145)
[2018-10-07] MEDS ORDERED: Nitroglycerin 2% Ointment 1 INCH/1 GM Packet ONE (13:56)
[2018-10-07] MEDS ORDERED: Furosemide 40 MG/4 ML VIAL ONE (13:56)
[2018-10-07 15:34] LABS: Bilirubin Negative (Negative); Blood, Urine Negative (Negative); Clarity CLEAR (Clear); Glucose, Urine (Dipstick) Negative (Negative); Leukocyte Negative (Negative); Nitrite Negative (Negative); Protein, Urine (Dipstick) Negative (Neg-Trace); Specific Gravity, Urine 1.005 (1.002-1.036); Urobilinogen 0.2 mg/dL (0.2-1.0)
[2018-10-07 16:47] VITALS: BMI 21.7
[2018-10-07] MEDS ORDERED: cloNIDine 0.2 MG TAB PO PRN (16:49)
[2018-10-07] MEDS ORDERED: Albuterol Sulfate 2.5 mg/3 ml Neb NEB PRN (16:50)
[2018-10-07] MEDS: Carvedilol 6.25 MG TAB PO SCH (17:12)
[2018-10-07] MEDS: Albuterol Sulfate 1.25 MG/3 ML NEB INH SCH (17:30)
--- NOTE | 2018-10-07 17:37 | HP ---
PRIMARY CARE PHYSICIAN: Dr. Michele Pan. CHIEF COMPLAINT: Shortness of breath and lower extremity edema. HISTORY OF PRESENT ILLNESS: Mr. Moore is a pleasant 83-year-old male with past medical history of chronic obstructive pulmonary disease, hypertension, hyperlipidemia, and coronary artery disease status post CABG x5, who had presented to [facility] after he was experiencing cough and worsening shortness of breath over the last 3 days, he states that he has needed his home O2 throughout the day and night; however, not making any better. He states that he sees Dr. Draper, customer account manager, and Dr. Spears, desk assistant. He states that he has been using his nebulizer about 4-5 times a day with little improvement. He had denied any fever or chills or any chest pain or palpitations; however, does report some shortness of breath, which is worse with activity. Denies any abdominal pain, nausea, vomiting, or change in stool. He states that his lower extremities have been swelling over the last week. He states that his left is worse than his right. His initial workup included a portable chest x-ray, which revealed bibasilar interstitial infiltrates with right basilar infiltrate progress since about 2 months ago along with underlying COPD. His initial troponin was found to be normal at less than 0.010; however, his BNP was elevated at 1858.7, which was up from his last admission back in July/August. He was given a single dose of IV Lasix 40 mg x1 , a nebulizer treatment along with topical nitroglycerin paste, he had stated that he had felt better; however, he is remaining on 3L of oxygen via nasal cannula, a Aguayo catheter was placed and he had about 900 mL output. It was determined that the patient be admitted under observation and be continued on IV furosemide for further diuresis. He will be reassessed in the morning and a consult to Cardiology and/ or Pulmonology will also be considered. REVIEW OF SYSTEMS: All other systems reviewed and found to be negative unless mentioned in the HPI. PAST MEDICAL HISTORY: 1. Hypertension. 2. Hyperlipidemia. 3. Coronary artery disease. 4. Asthma. 5. Chronic obstructive pulmonary disease, wears oxygen via nasal cannula of 2L at home. PAST SURGICAL HISTORY: 1. Coronary artery bypass graft surgery x5 vessels. 2. Cholecystectomy. 3. Hernia repair x3. 4. TURP procedure. PSYCHIATRIC HISTORY: None. SOCIAL HISTORY: The patient states that he is a former smoker and he quit more than 10 years ago. He had denied any alcohol or illicit drug use. KNOWN ALLERGIES: Penicillin, sulfa, Bactrim, ciprofloxacin, hydralazine, ipratropium, Levaquin, and terazosin along with statins. CURRENT HOME MEDICATIONS: 1. Furosemide 20 mg p.o. b.i.d. 2. Albuterol sulfate nebulizer inhalation t.i.d. 3. Alprazolam 0.25 mg p.o. t.i.d., the patient takes one tablet in the afternoon and two tablets nightly. 4. Aspirin 81 mg daily. 5. Carvedilol 12.5 mg p.o. b.i.d. 6. Clonidine 0.2 mg p.o. daily. 7. Diltiazem 120 mg p.o. b.i.d. 8. Finasteride 5 mg p.o. daily. 9. Guaifenesin 1200 mg p.o. q.12 h. 10. Lisinopril 20 mg p.o. b.i.d. 11. Mometasone 220 mcg daily. 12. Coenzyme Q10 of 400 mg p.o. nightly. PHYSICAL EXAMINATION: VITAL SIGNS: BP 176/87, pulse 65, respirations 25, temperature 97.8 degrees Fahrenheit, and O2 saturations 97% on 3L of oxygen via nasal cannula. GENERAL: The patient is awake, alert, and oriented x3. He is currently lying comfortably in bed with 3L of oxygen in place. He appears mildly dyspneic with speech and his daughter is at bedside. HEENT: Atraumatic and normocephalic. Pupils are round and reactive to light. Extraocular muscles intact. Moist mucous membranes noted. NECK: Soft and supple. Trachea midline. CARDIOVASCULAR: Positive S1 and S2. Regular rate and rhythm. No murmur auscultated. RESPIRATORY: Coarse breath sounds heard throughout bilateral lung tracey with a mild expiratory wheeze noted. ABDOMEN: Soft and nontender. Bowel sounds present. MUSCULOSKELETAL: Strength 5+ bilaterally in upper and lower extremities, moves all extremities equal, 3+ pitting edema noted in bilateral lower extremities. NEUROLOGIC: Cranial nerves 2 through 12 grossly intact. No focal deficits noted. Speech intact and normal. Gait not assessed. SKIN: Warm, dry, and intact. No rashes. No ulceration noted. PSYCHIATRIC: Good mood and affect. LABORATORY DATA: WBC 10.3, RBC 4.32, hemoglobin 11.7, hematocrit 37.1, and platelets 402. Sodium 135, potassium 3.6, anion gap 13, BUN 11, creatinine 0.93 , estimated GFR 78, and glucose 167. AST 14 and ALT 13. Troponin less than 0.010. BNP 1858.7. Urinalysis was unremarkable. DIAGNOSTIC IMAGING: Portable chest x-ray showed bibasilar interstitial infiltrates, right basilar infiltrate has progressed since exam from 2 months ago with underlying COPD. ASSESSMENT/PLAN: 1. Acute on chronic systolic heart failure. The patient will be placed on home regimen including IV furosemide 40 mg b.i.d. He will be reassessed in the morning for further management. Cardiac consult will be considered if the patient is not improving. His initial cardiac enzymes are unremarkable and less than 0.010. His BNP is elevated over 1800, which is higher from last admission. 2. Acute chronic obstructive pulmonary disease exacerbation. The patient will be placed on his home regimen. He will also be started on a Albuterol nebulizer treatments q.8 h. as needed. He will also be resumed on his home O2. The patient will be reassessed in the morning, and if he is not improved, we will consider consult to Pulmonology Service with Dr. Draper. 3. History of coronary artery disease. Continue on the patient's home regimen. 4. Hypertension. Continue home regimen at this time. Monitor vital signs closely. 5. Hyperlipidemia. Not continue CoQ10 as the patient is allergic to statin therapy and is not tolerating them in the past. 6. Deep venous thrombosis and gastrointestinal prophylaxis. 7. Code status, full code. Surrogate decision maker is his daughter, Catarino Guillen, and son, Angelo Moore. DISPOSITION: The patient will be placed in observation. He will be monitored on telemetry. He will be reassessed overnight and placed on IV furosemide b.i.d. If he is not improving, we will consider consult to Cardiology Services and/or Pulmonology Services; however, if he is improved, he will likely be discharged in the next 24 to 48 hours. Job ID: [id number] [facility]
[2018-10-07] MEDS: Ubidecarenone 50 MG CAP PO SCH (20:59)
[2018-10-07] MEDS: guaiFENesin ER 600 MG TAB PO SCH (20:59)
[2018-10-07] MEDS: Lisinopril 20 MG TAB PO SCH (20:59)
[2018-10-07] MEDS ORDERED: ALPRAZolam 0.25 MG TAB PO SCH (21:00)
[2018-10-07] MEDS: Acetaminophen 325 MG TAB PO PRN (21:00)
[2018-10-07] MEDS ORDERED: ALPRAZolam 0.5 MG TAB PO SCH (22:00)
[2018-10-08] MEDS: Acetaminophen 325 MG TAB PO PRN ×2 (03:10→23:47)
[2018-10-08] MEDS: Furosemide 40 MG/4 ML VIAL SLOW IVP SCH ×2 (05:46→15:13)
[2018-10-08 05:51] LABS: Anion Gap 10 mmol/L (10-20); BUN (Urea Nitrogen) 11 mg/dL (8.4-25.7); Calc. Creatinine Clearance 57 mL/min (70-130); Calcium 9.3 mg/dL (7.8-10.44); Carbon Dioxide 30 mmol/L (23-31); Chloride 97 mmol/L (98-107); Estimated GFR-MDRD 87; Glucose 88 mg/dL (83-110); Potassium 3.1 mmol/L (3.5-5.1); Sodium 134 mmol/L (136-145)
[2018-10-08 05:54] LABS: Eosinophils 4 % (0-10); Hemoglobin 10.6 g/dL (14.0-18.0); Lymphocytes 12 % (21-51); MDiff Complete? YES; Mean Corpuscular HGB CONC 32.1 g/dL (32.0-36.0); Mean Corpuscular Hemoglobin 27.4 pg (27.0-31.0); Mean Corpuscular Volume 85.6 fL (78.0-98.0); Mean Platelet Volume 6.9 fL (7.4-10.4); Monocytes 18 % (0-10); Neutrophil 66 % (42-75); Platelet Count 339 thou/uL (130-400); Red Blood Cell (RBC) Count 3.85 mill/uL (4.70-6.10); White Blood Cell (WBC) Count 7.4 thou/uL (4.8-10.8)
[2018-10-08] MEDS: Albuterol Sulfate 1.25 MG/3 ML NEB INH SCH (07:00)
[2018-10-08] MEDS ORDERED: Mometasone Furoate 120 PUFF 220 MCG INH SCH (07:00)
[2018-10-08] MEDS: Enoxaparin Sodium 40 MG/0.4 ML SYRINGE SC SCH (08:02)
[2018-10-08] MEDS: guaiFENesin ER 600 MG TAB PO SCH ×2 (08:02→20:55)
[2018-10-08] MEDS: Lisinopril 20 MG TAB PO SCH ×2 (08:02→20:55)
[2018-10-08] MEDS: Carvedilol 6.25 MG TAB PO SCH ×2 (08:03→18:10)
[2018-10-08] MEDS: Aspirin 81 mg Enteric Coated Tablet PO SCH (08:03)
[2018-10-08] MEDS: Finasteride 5 MG TAB PO SCH (08:03)
[2018-10-08] MEDS: Potassium Chloride 20 MEQ TAB PO SCH (08:11)
--- NOTE | 2018-10-08 09:33 | CON ---
DATE OF CONSULTATION: HISTORY OF PRESENT ILLNESS: The patient is an 83-year-old gentleman, who is well known to our practice, came in yesterday after his family called the hospital that he was having difficulty breathing without any associated fever or chills. X-ray shows bilateral infiltrates. BNP is elevated, consistent with a combination of CHF and COPD exacerbation. He also has noticed his lower extremity swelling. He denies any chest pain, chills, or sweats. PAST MEDICAL HISTORY: Extensively well outlined. Multiple admissions with COPD exacerbation, CHF, hypertension, chronic asthma, respiratory failure. PAST SURGICAL HISTORY: Bypass surgery, previous cholecystectomy, hernia repair, previous TURP. SOCIAL HISTORY: He is a former smoker. Quit 10 years ago. ALLERGIES: SULFA, CIPRO, HYDRALAZINE, IPRATROPIUM CAUSES URINARY RETENTION, LEVAQUIN, AMOXICILLIN. HOME MEDICATIONS: Include: 1. Asmanex 220. 2. Coreg 12.5. 3. Aspirin 81. 4. Lisinopril 20. 5. Finasteride 5. 6. Guaifenesin. 7. Xanax. 8. Lasix. 9. Trelegy inhaler which apparently supposed to be taking. REVIEW OF SYSTEMS: 10-point negative. PHYSICAL EXAMINATION: He said he is better. He has 1+ ankle edema. VITAL SIGNS: His blood pressure is 180/85, temperature 97, pulse 65, respiratory rate 20. CHEST: Decreased breath sounds, no wheezing. CARDIAC: Normal S1, S2. No gallops. ABDOMEN: No masses. LABORATORY DATA: White count 7000, H and H 10 and 30, platelet count 339, 66 segs. Lytes are normal. Sodium 135. BNP is 1857. Urine was normal. Chest x-ray as noted shows bibasilar infiltrates. IMPRESSION: 1. Congestive heart failure. 2. Chronic obstructive pulmonary disease, possibly pneumonia. Started prednisone, neb treatments, supportive care, PT. Cardiology input. We will follow. Job ID: [id number]
[2018-10-08] MEDS: Mometasone Furoate 120 PUFF 220 MCG INH SCH ×2 (09:47→19:32)
[2018-10-08] MEDS: Doxycycline 100 MG CAP PO SCH ×2 (10:12→20:53)
--- NOTE | 2018-10-08 13:40 | PDOC.PN ---
- Subjective Encounter Start Date: 10/08/18 Encounter Start Time: 13:38 Patient lying in bed, he reports feeling better today, but still requiring oxygen at rest. Dr Draper saw patient and consulted cardiology which is pending at this time. He denies chest pain, palpitations, abdominal pain, nausea, vomiting, fever or chills. He states his lower extremity edema is improved and he has good output with sepulveda in place. - Objective Resuscitation Status - Order Detail: 10/07/18 17:06 Resuscitation Status Routine Co-Sign Provider: Resuscitation Status: FULL: Full Resuscitation MAR Reviewed: Yes Vital Signs & Weight: Vital Signs (12 hours) Temp Pulse Resp BP BP BP Pulse Ox 10/08/18 12:15 98.1 F 59 L 20 168/71 H 95 10/08/18 10:23 62 16 91 L 10/08/18 08:03 65 180/85 H 10/08/18 08:02 180/85 H 10/08/18 07:59 97.8 F 65 20 180/85 H 91 L 10/08/18 07:02 76 16 97 10/08/18 07:00 76 16 97 10/08/18 03:51 97.7 F 75 20 171/86 H 95 Weight Weight 130 lb 8 oz I&O: 10/07/18 10/08/18 10/09/18 06:59 06:59 06:59 Intake Total 640 Output Total 1950 1100 Balance -1310 -1100 Result Diagrams: 10/08/18 05:09 10/08/18 05:09 Phys Exam - Physical Examination Constitutional: NAD HEENT: moist MMs, oral pharynx no lesions Neck: supple Decreased breath sounds noted Cardiovascular: RRR, no significant murmur Gastrointestinal: soft, no distention, positive bowel sounds Musculoskeletal: pulses present Trace edema lower extremities Neurological: non-focal, moves all 4 limbs Lymphatic: no nodes Psychiatric: normal affect, A&O x 3 Skin: no rash, cap refill <2 seconds Dx/Plan (1) Acute on chronic diastolic heart failure Code(s): I50.33 - ACUTE ON CHRONIC DIASTOLIC (CONGESTIVE) HEART FAILURE Status : Acute (2) COPD exacerbation Code(s): J44.1 - CHRONIC OBSTRUCTIVE PULMONARY DISEASE W (ACUTE) EXACERBATION Status: Acute Comment: Improving, switch to oral steroids and antibiotics (3) Anxiety Code(s): F41.9 - ANXIETY DISORDER, UNSPECIFIED Status: Chronic (4) BPH (benign prostatic hyperplasia) Code(s): N40.0 - BENIGN PROSTATIC HYPERPLASIA WITHOUT LOWER URINRY TRACT SYMP Status: Chronic (5) CAD (coronary artery disease) Code(s): I25.10 - ATHSCL HEART DISEASE OF [place] CORONARY ARTERY W/O ANG PCTRS Status: Chronic Comment: stable (6) HLD (hyperlipidemia) Code(s): E78.5 - HYPERLIPIDEMIA, UNSPECIFIED Status: Chronic (7) HTN (hypertension) Code(s): I10 - ESSENTIAL (PRIMARY) HYPERTENSION Status: Chronic (8) S/P CABG x 5 Code(s): Z95.1 - PRESENCE OF AORTOCORONARY BYPASS GRAFT Status: Chronic Comment: in 2002 - Plan cont current plan of care, continue antibiotics, PT/OT, DVT proph w/lovenox * Continue supportive care * IV furosemide for diuresis, edema and shortness of breath improving with good output via sepulveda * Continue other home medications * Dr Draper following along and added doxy with oral prednisone * Consult placed for cardiology will appreciate recommendations
--- NOTE | 2018-10-08 15:05 | CON ---
DATE OF CONSULTATION: HISTORY OF PRESENT ILLNESS: Catarino Moore is an 83-year-old white male, who I have followed since 11/1997. Please see dictation from 2 months ago regarding his previous cardiac history. He was recently in the hospital 2 months ago with increased weakness and muscle pain. His atorvastatin was discontinued and his leg strength has improved. He also had increased edema when he was seen by my nurse practitioner on 09/25/2018. He was taking furosemide 20 mg daily and this was increased to 40 mg daily. He states that his peripheral edema resolved within 3 days. However, approximately 5 or 6 days later, he started to again have increasing edema. He denies any chest discomfort. He has had a cough with occasional production of yellow sputum. He denies any fevers. With his increasing shortness of breath, he came to the hospital for further evaluation. PAST MEDICAL HISTORY: 1. Hypertension. 2. Coronary artery disease. 3. Hyperlipidemia. 4. Prediabetes. 5. Severe COPD. HOME MEDICATIONS: Include; 1. Furosemide 40 mg q.a.m. 2. Albuterol nebs t.i.d. 3. Xanax 0.25 t.i.d. 4. Aspirin 81 daily. 5. Carvedilol 12.5 mg b.i.d. 6. Clonidine 0.2 mg daily p.r.n. 7. Diltiazem 120 b.i.d. 8. Finasteride 5 mg daily. 9. Mucinex 1200 mg q.12 h. 10. Lisinopril 20 mg b.i.d. 11. Asmanex one puff daily. 12. Coenzyme Q 400 mg nightly. ALLERGIES: SULFA, CIPRO, HYDRALAZINE, LEVOFLOXACIN, AMOXICILLIN, AND IPRATROPIUM. OPERATIONS: 1. CABG. 2. Repair of sternal dehiscence. 3. Cataract surgery. 4. Hernia surgery. 5. TURP x2. SOCIAL HISTORY: He smokes 4-5 packs per day for 40 years, but stopped 16 years ago. He occasionally drinks. FAMILY HISTORY: Father had CABG and another brother had coronary artery disease. REVIEW OF SYSTEMS: A 12-point review of systems is otherwise unremarkable. PHYSICAL EXAMINATION: VITAL SIGNS: Blood pressure 168/71, pulse of 59 and irregularly irregular. HEENT: PERRL. NECK: Supple. CHEST: Delayed expiratory wheezing. CARDIOVASCULAR: S1 and S2 are normal without any S3, S4, or murmurs. ABDOMEN: Normal bowel sounds without tenderness. EXTREMITIES: Trace ankle edema. SKIN: Warm and dry. NEUROLOGIC: Grossly intact. LABORATORY DATA: EKG revealed atrial fibrillation, right bundle-branch block, possible inferior infarction. Hemoglobin 10.6, hematocrit 32.9, white count 7400, and platelets 339,000. D-dimer less than 0.27. Sodium 134, potassium 3.1, chloride 97, carbon dioxide 30, BUN 11, and creatinine 0.85. BNP 1858.7. Troponin-I is unremarkable. IMPRESSION: 1. Ischemic cardiomyopathy with ejection fraction recently falling to 40% to 45% . 2. Chronic obstructive pulmonary disease exacerbation. 3. History of systolic and diastolic heart failure. 4. Status post coronary artery bypass graft x5. 5. Non-Q-wave myocardial infarction prior to bypass surgery. 6. Hypertension. 7. Hyperlipidemia. 8. Former smoker. 9. Positive family history. 10. Benign prostatic hypertrophy. 11. Atrial fibrillation, present for at least 2 months. He is not a good candidate for anticoagulation due to history of falls. 12. Probable statin-induced myopathy with extreme weakness and muscle pain, which appears to be pretty much resolved. PLAN: The patient will continue to be diuresed. Echocardiogram will be performed to reassess left ventricular function. Job ID: [id number] [facility]
[2018-10-08] MEDS: ALPRAZolam 0.25 MG TAB PO SCH ×2 (18:11)
[2018-10-08] MEDS: Ubidecarenone 50 MG CAP PO SCH (20:56)
[2018-10-08] MEDS ORDERED: ALPRAZolam 0.5 MG TAB PO SCH (21:00)
[2018-10-08] MEDS: Melatonin 3 MG TAB PO PRN (23:47)
[2018-10-09] MEDS ORDERED: diphenhydrAMINE 50 MG/ML VIAL IVP SCH (03:00)
[2018-10-09] MEDS ORDERED: diphenhydrAMINE 25 MG in Sodium Chloride 0.9% 50 ML IVPB SCH (03:00)
[2018-10-09] MEDS: Furosemide 40 MG/4 ML VIAL SLOW IVP SCH ×2 (04:28→15:03)
[2018-10-09] MEDS: Mometasone Furoate 120 PUFF 220 MCG INH SCH ×2 (06:44→18:33)
[2018-10-09] MEDS ORDERED: ALPRAZolam 0.5 MG TAB PO PRN (08:41)
[2018-10-09] MEDS: guaiFENesin ER 600 MG TAB PO SCH ×2 (09:04→21:31)
[2018-10-09] MEDS: Potassium Chloride 20 MEQ TAB PO SCH (09:04)
[2018-10-09] MEDS: Aspirin 81 mg Enteric Coated Tablet PO SCH (09:05)
[2018-10-09] MEDS: Carvedilol 6.25 MG TAB PO SCH ×2 (09:05→17:32)
[2018-10-09] MEDS: Doxycycline 100 MG CAP PO SCH ×2 (09:05→21:31)
[2018-10-09] MEDS: Lisinopril 20 MG TAB PO SCH ×2 (09:05→21:27)
[2018-10-09] MEDS: Finasteride 5 MG TAB PO SCH (09:06)
[2018-10-09] MEDS: predniSONE 20 MG TAB PO SCH (09:06)
[2018-10-09] MEDS: Enoxaparin Sodium 40 MG/0.4 ML SYRINGE SC SCH (09:07)
--- NOTE | 2018-10-09 09:11 | PRG ---
DATE OF SERVICE: 10/09/2018 SUBJECTIVE: This morning, he is lethargic. He was given scheduled Xanax 0.25 twice a day and 0.5 at nighttime. OBJECTIVE: VITAL SIGNS: Temperature 98, pulse 66, respiratory rate 20, saturations are 98 on 3L, and blood pressure 136/75. CHEST: Decreased breath sounds. No wheezing. CARDIAC: Normal S1 and S2. No gallops. ABDOMEN: No masses. IMPRESSION: 1. Congestive heart failure. 2. COPD. 3. Possible pneumonia. 4. Major anxiety. PLAN: I would not give scheduled Xanax, give p.r.n. only. Continue PT and supportive care. Hopefully discharge home in the next several days. Job ID: [id number]
--- NOTE | 2018-10-09 09:55 | RAD ---
PORTABLE CHEST: Date: 10-09-18 Provided Clinical History: CHF. FINDINGS: Comparison 10-07-18 Cardiac and mediastinal silhouette is unchanged in appearance. Median sternotomy changes and vascular calcification are again seen. Emphysematous changes are again noted with prominence of the pulmonary vasculature and pulmonary interstitium. Relative prominence of the interstitium involving the mid to lower lung zones bilaterally may reflect gradient of emphysematous change versus superimposed inters titial process. No pleural fluid or pneumothorax apparent. IMPRESSION: 1. Stable radiographic appearance of the chest. POS: C
--- NOTE | 2018-10-09 15:34 | PDOC.PN ---
- Subjective Encounter Start Date: 10/09/18 Encounter Start Time: 15:32 Patient lying in bed, he reports feeling better today, but oxygen dropped when he was up with therapy. He denies chest pain, palpitations. Echo shows EF 45-50% . Cardiology and Pulmonology both feel patient is improved but not ready for discharge home. - Objective Resuscitation Status - Order Detail: 10/07/18 17:06 Resuscitation Status Routine Co-Sign Provider: Resuscitation Status: FULL: Full Resuscitation MAR Reviewed: Yes Vital Signs & Weight: Vital Signs (12 hours) Temp Pulse Resp BP Pulse Ox Pulse Ox Pulse Ox 10/09/18 14:02 90 L 88 L 10/09/18 12:00 98.2 F 70 20 134/70 96 10/09/18 10:59 59 L 18 93 L 10/09/18 07:25 98.1 F 66 20 136/75 98 10/09/18 06:47 95 10/09/18 06:46 74 18 95 10/09/18 06:44 74 18 95 Pulse Ox 10/09/18 14:02 91 L 10/09/18 12:00 10/09/18 10:59 10/09/18 07:25 10/09/18 06:47 10/09/18 06:46 10/09/18 06:44 Weight Weight 130 lb 8 oz I&O: 10/08/18 10/09/18 10/10/18 06:59 06:59 06:59 Intake Total 640 520 Output Total 1950 3500 Balance -1310 -2980 Result Diagrams: 10/08/18 05:09 10/08/18 05:09 Radiology Reviewed by me: Yes Phys Exam - Physical Examination Constitutional: NAD HEENT: moist MMs, oral pharynx no lesions Neck: supple Diminished breath sounds Cardiovascular: RRR, no significant murmur Gastrointestinal: no distention, positive bowel sounds Musculoskeletal: no edema, pulses present Neurological: non-focal, moves all 4 limbs Lymphatic: no nodes Psychiatric: normal affect, A&O x 3 Skin: normal turgor Dx/Plan (1) Acute on chronic diastolic heart failure Code(s): I50.33 - ACUTE ON CHRONIC DIASTOLIC (CONGESTIVE) HEART FAILURE Status : Acute (2) COPD exacerbation Code(s): J44.1 - CHRONIC OBSTRUCTIVE PULMONARY DISEASE W (ACUTE) EXACERBATION Status: Acute (3) Anxiety Code(s): F41.9 - ANXIETY DISORDER, UNSPECIFIED Status: Chronic (4) BPH (benign prostatic hyperplasia) Code(s): N40.0 - BENIGN PROSTATIC HYPERPLASIA WITHOUT LOWER URINRY TRACT SYMP Status: Chronic (5) CAD (coronary artery disease) Code(s): I25.10 - ATHSCL HEART DISEASE OF [place] CORONARY ARTERY W/O ANG PCTRS Status: Chronic Comment: stable (6) HLD (hyperlipidemia) Code(s): E78.5 - HYPERLIPIDEMIA, UNSPECIFIED Status: Chronic (7) HTN (hypertension) Code(s): I10 - ESSENTIAL (PRIMARY) HYPERTENSION Status: Chronic (8) S/P CABG x 5 Code(s): Z95.1 - PRESENCE OF AORTOCORONARY BYPASS GRAFT Status: Chronic Comment: in 2002 - Plan cont current plan of care, sepulveda catheter, continue antibiotics, PT/OT, DVT proph w/lovenox * Patient continued on doxy and oral prednisone * Chest xray shows improvement and echo also showing improved EF to 45-50% * Cardiology and Pulmonology both following and do not believe patient is ready as he is still hypoxic with oxygen when ambulating * He will be continued on other home meds, xanax changed to PRN * He will be transitioned to inpatient as he is not stable for discharge and requiring more oxygen and IV lasix
[2018-10-09] MEDS: ALPRAZolam 0.25 MG TAB PO PRN (17:32)
[2018-10-09] MEDS: Ubidecarenone 50 MG CAP PO SCH (21:28)
[2018-10-09] MEDS: Melatonin 3 MG TAB PO PRN (21:31)
[2018-10-09] MEDS: Acetaminophen 325 MG TAB PO PRN (23:12)
[2018-10-10] MEDS: Furosemide 40 MG/4 ML VIAL SLOW IVP SCH ×2 (06:08→13:27)
[2018-10-10 06:36] LABS: Anion Gap 12 mmol/L (10-20); BUN (Urea Nitrogen) 23 mg/dL (8.4-25.7); Calc. Creatinine Clearance 47 mL/min (70-130); Calcium 9.6 mg/dL (7.8-10.44); Carbon Dioxide 29 mmol/L (23-31); Cardiac Risk 3.2 (Less than 4.5); Chloride 93 mmol/L (98-107); Cholesterol 142 mg/dl (< 200 Desired); Estimated GFR-MDRD 69; Glucose 157 mg/dL (83-110); HDL Cholesterol 44 mg/dL (>60 Neg Risk); LDL Cholesterol, Calculated 88 mg/dL; Potassium 3.7 mmol/L (3.5-5.1); Sodium 130 mmol/L (136-145); Triglycerides 49 mg/dL (Less than 150)
[2018-10-10] MEDS ORDERED: Albuterol Sulfate 1.25 MG/3 ML NEB ONE (07:30)
[2018-10-10] MEDS: Mometasone Furoate 120 PUFF 220 MCG INH SCH (07:31)
[2018-10-10] MEDS: predniSONE 20 MG TAB PO SCH (08:58)
[2018-10-10] MEDS: Doxycycline 100 MG CAP PO SCH (08:58)
[2018-10-10] MEDS: Potassium Chloride 20 MEQ TAB PO SCH (08:58)
[2018-10-10] MEDS: Finasteride 5 MG TAB PO SCH (08:58)
[2018-10-10] MEDS: Lisinopril 20 MG TAB PO SCH (08:59)
[2018-10-10] MEDS: Carvedilol 6.25 MG TAB PO SCH ×2 (08:59→17:25)
[2018-10-10] MEDS: Enoxaparin Sodium 40 MG/0.4 ML SYRINGE SC SCH (08:59)
[2018-10-10] MEDS: Aspirin 81 mg Enteric Coated Tablet PO SCH (08:59)
[2018-10-10] MEDS: guaiFENesin ER 600 MG TAB PO SCH (09:02)
--- NOTE | 2018-10-10 09:55 | PRG ---
DATE OF SERVICE: 10/10/2018 SUBJECTIVE: Catarino Moore, this morning, is better. He is less short of breath. OBJECTIVE: VITAL SIGNS: Saturations are 90% on 3 L, respirations 16, temperature 97, pulse 68, and blood pressure 140/78. CHEST: Decreased breath sounds. No wheezing. CARDIAC: Normal S1, S2. No gallop. ABDOMEN: No masses. IMPRESSION: 1. Chronic obstructive pulmonary disease. 2. Congestive heart failure, possibly superimposed pneumonia. PLAN: Appears to have improved. The sodium is 130. I would switch him over to p.o. Lasix. It appears that the cardiac function is improved, he can be discharged home any time, to follow up in the office in several weeks. Job ID: [id number]
--- NOTE | 2018-10-10 11:02 | PDOC.PN ---
- Subjective Encounter Start Date: 10/10/18 Encounter Start Time: 11:01 Mr. Moore was seen today in follow-up of CHF exacerbation. He is breathing better today and says he is at his baseline. - Objective Resuscitation Status - Order Detail: 10/07/18 17:06 Resuscitation Status Routine Co-Sign Provider: Resuscitation Status: FULL: Full Resuscitation MAR Reviewed: Yes Vital Signs & Weight: Vital Signs (12 hours) Temp Pulse Resp BP BP BP Pulse Ox 10/10/18 10:49 70 16 94 L 10/10/18 08:59 179/81 H 10/10/18 08:58 76 10/10/18 08:00 93 L 10/10/18 07:15 76 16 90 L 10/10/18 07:14 92 L 10/10/18 07:00 97.8 F 66 18 179/81 H 93 L 10/10/18 03:44 97.9 F 68 18 144/78 H 94 L Weight Weight 130 lb 8 oz I&O: 10/09/18 10/10/18 10/11/18 06:59 06:59 06:59 Intake Total 520 960 200 Output Total 3500 1900 500 Balance -2980 -940 -300 Result Diagrams: 10/08/18 05:09 10/10/18 05:16 Phys Exam - Physical Examination HEENT: PERRLA + occasional rale st the base Cardiovascular: RRR, no significant murmur, no rub Gastrointestinal: soft, non-tender, no distention, positive bowel sounds Musculoskeletal: pulses present, edema present trace pedal edema Neurological: non-focal, normal sensation, moves all 4 limbs Dx/Plan (1) Acute on chronic diastolic heart failure Code(s): I50.33 - ACUTE ON CHRONIC DIASTOLIC (CONGESTIVE) HEART FAILURE Status : Acute (2) CAD (coronary artery disease) Code(s): I25.10 - ATHSCL HEART DISEASE OF [place] CORONARY ARTERY W/O ANG PCTRS Status: Chronic Comment: stable (3) HLD (hyperlipidemia) Code(s): E78.5 - HYPERLIPIDEMIA, UNSPECIFIED Status: Chronic (4) HTN (hypertension) Code(s): I10 - ESSENTIAL (PRIMARY) HYPERTENSION Status: Chronic (5) COPD (chronic obstructive pulmonary disease) Status: Chronic (6) BPH (benign prostatic hyperplasia) Code(s): N40.0 - BENIGN PROSTATIC HYPERPLASIA WITHOUT LOWER URINRY TRACT SYMP Status: Chronic - Plan * Acute on chronic diastolic heart failure- he has improved with diureses * Continue Lasix, but consider change to oral * CAD- stable . * COPD- stable * BPH- stable
[2018-10-10] MEDS: ALPRAZolam 0.25 MG TAB PO PRN (13:31)
[2018-10-10 17:02] VITALS: BP 154/70; TEMP 98.1
--- NOTE | 2018-10-11 11:21 | DIS ---
DATE OF ADMISSION: 10/09/2018 DATE OF DISCHARGE: 10/10/2018 PRIMARY CARE PHYSICIAN: Michele Pan MD. DISCHARGE DISPOSITION: Home. PRIMARY DISCHARGE DIAGNOSES: 1. Acute on chronic systolic heart failure. 2. Hypertension. 3. Hyperlipidemia. 4. History of asthma. 5. Coronary artery disease. DISCHARGE MEDICATIONS: Include doxycycline 100 mg twice a day for 5 days. The remainder of the medicines are the same and include; 1. CoQ10 of 400 mg at bedtime. 2. Carvedilol 12.5 mg twice a day. 3. Asmanex 220 puffs daily. 4. Lisinopril 20 mg twice a day. 5. Mucinex 1200 mg p.r.n. 6. Lasix 20 mg twice a day. 7. Finasteride 5 mg daily. 8. Diltiazem extended release 120 mg twice daily. 9. Clonidine 0.2 mg daily. 10. Aspirin 81 mg daily. 11. Xanax 0.25 mg 3 times a day. 12. Albuterol 2 puffs 3 times a day. PROCEDURES DONE DURING ADMISSION: The patient had an echocardiogram in which the ejection fraction was estimated at 45% to 50%. There was hypokinetic motion at the inferior wall of the left ventricle and the left atrium was moderately dilated. CODE STATUS: Full code. ALLERGIES: TO SULFA, CIPROFLOXACIN, IPRATROPIUM, HYDRALAZINE, LEVOFLOXACIN, AND AMOXICILLIN/CLAVULANIC ACID. HOSPITAL COURSE: Mr. Moore is a pleasant 83-year-old gentleman, who was admitted to the hospital with complaints of shortness of breath and lower extremity edema. He was initially placed in observation and treated for both CHF as well as asthma exacerbation. Both his decorating kiln operator and architectural project manager were consulted. He improved over the course of the next couple of days. An echocardiogram was done to assess his ejection fraction. His EF had actually increased since his last echo. Once he was clinically improved and had several liters of fluid removed, he was able to be discharged home and to have close outpatient followup. Job ID: [id number]
== END 2018-10-10 17:30 | disposition home health service (06) | DRG 291 ==
LOC: ERS 11:31 → 2NO 13:58 → OBSVTOIN 10-09 15:43
PROVIDERS: ADMIT Internal Medicine; ATTEND Internal Medicine
DX: I11.0 Hypertensive heart disease with heart failure (principal); J18.9 Pneumonia, unspecified organism; J44.1 Chronic obstructive pulmonary disease with (acute) exacerbation; G72.0 Drug-induced myopathy; J44.0 Chronic obstructive pulmonary disease with (acute) lower respiratory infection; I25.10 Atherosclerotic heart disease of native coronary artery without angina pectoris; I50.33 Acute on chronic diastolic (congestive) heart failure; T46.6X5A Adverse effect of antihyperlipidemic and antiarteriosclerotic drugs, initial encounter; I25.5 Ischemic cardiomyopathy; I48.91 Unspecified atrial fibrillation; E78.5 Hyperlipidemia, unspecified; F41.9 Anxiety disorder, unspecified; N40.0 Benign prostatic hyperplasia without lower urinary tract symptoms; Z99.81 Dependence on supplemental oxygen; Z95.1 Presence of aortocoronary bypass graft; Z90.49 Acquired absence of other specified parts of digestive tract; Z87.891 Personal history of nicotine dependence; Z88.0 Allergy status to penicillin; Z88.1 Allergy status to other antibiotic agents; Z88.2 Allergy status to sulfonamides; Z88.8 Allergy status to other drugs, medicaments and biological substances; Z79.51 Long term (current) use of inhaled steroids; Z79.82 Long term (current) use of aspirin; Z79.899 Other long term (current) drug therapy
CPT/HCPCS: 36415; 51702; 71045; 80048; 80053; 80061; 81003; 83880; 84484; 85025; 87086; 93005; 93306; 93798; 94640; 96374; J1200; J1650; J1940; J7512; J7611; J7620

== ENCOUNTER 2018-11-06 14:56 | Inpatient (IN) | payer MEDICARE ==
[2018-11-06] MEDS ORDERED: methylPREDNISolone Sod Succ/PF 125 MG/2 ML VIAL ONE (15:19)
[2018-11-06 15:24] LABS: Analyzer IN Cardio ER; Base Excess (BEa) 4.4 mEq/L (-2.0 to +3.0); CO2 Tension 43.2 mmHg (35.0-45.0); Calcium, Ionized 1.12 mmol/L (1.12-1.30); Carboxyhemoglobin (COHb) 0.7 gm% (0.0-3.0); O2 Tension (PaO2) 67.8 mmHg (> 60.0); Potassium - ABG Lab 3.14 mmol/L (3.70-5.30); pH, Arterial 7.45 (7.35-7.45)
[2018-11-06] MEDS ORDERED: Albuterol Sulfate 2.5 mg/0.5 ml Neb ONE (15:27)
[2018-11-06] MEDS ORDERED: Albuterol Sulfate 2.5 mg/3 ml Neb ONE (15:27)
[2018-11-06 15:32] LABS: Hemoglobin 11.3 g/dL (14.0-18.0); Mean Corpuscular HGB CONC 32.7 g/dL (32.0-36.0); Mean Corpuscular Hemoglobin 26.6 pg (27.0-31.0); Mean Corpuscular Volume 81.2 fL (78.0-98.0); Mean Platelet Volume 7.2 fL (7.4-10.4); Platelet Count 344 thou/uL (130-400); RBC Distribution Width 13.9 % (11.5-14.5); Red Blood Cell (RBC) Count 4.25 mill/uL (4.70-6.10); White Blood Cell (WBC) Count 7.8 thou/uL (4.8-10.8)
[2018-11-06 15:35] LABS: Puncture Site L.R.
--- NOTE | 2018-11-06 15:40 | RAD ---
RADIOGRAPH CHEST 1 VIEW: DATE: 11/06/2018 TIME: HISTORY: 83-year-old male with dyspnea COMPARISON: 10/09/2018 FINDINGS: severe bilateral upper lobe hyperlucency. Interstitial densities throughout the mid and lower lung z ones. New subsegmental atelectasis at left midlung zone. Blunting of the lateral costophrenic angles is slightly worse on the left now compared to prior. No other interval change. No cardiomegaly . Sternotomy wires. Surgical clips over the left side of the cardiac shadow. No pneumothorax. IMPRESSION: 1) severe centrilobular emphysema of the upper lobes. 2) bilateral interstitial infiltrates probably representing pulmonary interstitial edema, unchanged. 3) bilateral small pleural effusions. The one on the left may have slightly increased in volume.
[2018-11-06 15:50] LABS: ALT (SGPT) 15 U/L (8-55); AST (SGOT) 15 U/L (5-34); Albumin 4.1 g/dL (3.4-4.8); Alkaline Phosphatase 137 U/L (40-150); Anion Gap 13 mmol/L (10-20); BUN (Urea Nitrogen) 14 mg/dL (8.4-25.7); Calc. Creatinine Clearance 0 mL/min (70-130); Calcium 9.2 mg/dL (7.8-10.44); Carbon Dioxide 29 mmol/L (23-31); Chloride 95 mmol/L (98-107); Estimated GFR-MDRD 70; Globulin 2.7 g/dL (2.4-3.5); Glucose 99 mg/dL (83-110); Potassium 3.2 mmol/L (3.5-5.1); Protein, Total 6.8 g/dL (5.8-8.1); Sodium 134 mmol/L (136-145)
[2018-11-06 15:55] LABS: Hypochromia SLIGHT = 6-15 cells (100X) (0-5/hpf); Lymphocytes 9 % (21-51); MDiff Complete? YES; Monocytes 12 % (0-10); Neutrophil 79 % (42-75); Platelet Morphology Comment Appears Adequate
[2018-11-06] MEDS ORDERED: Furosemide 40 MG/4 ML VIAL IVP SCH (16:15)
[2018-11-06] MEDS ORDERED: Furosemide 40 MG/4 ML VIAL ONE (16:52)
[2018-11-06] MEDS ORDERED: Acetaminophen 650 MG Suppository PR PRN (18:13)
[2018-11-06] MEDS ORDERED: Ondansetron ODT 4 MG TAB PO PRN (18:13)
[2018-11-06] MEDS ORDERED: Ondansetron PF 4 MG/2 ML Vial IVP PRN (18:13)
[2018-11-06] MEDS ORDERED: Senokot S 8.6-50 MG TAB PO PRN (18:13)
[2018-11-06 18:41] LABS: Troponin I 0.017 ng/mL (< 0.028)
[2018-11-06 18:54] VITALS: BMI 21.4
[2018-11-06] MEDS ORDERED: Albuterol Sulfate 2.5 mg/3 ml Neb NEB SCH (19:00)
[2018-11-06] MEDS: Lisinopril 20 MG TAB PO SCH (19:48)
[2018-11-06] MEDS: cloNIDine 0.1 MG TAB PO PRN ×2 (19:48→23:40)
[2018-11-06] MEDS: Furosemide 40 MG/4 ML VIAL IVP SCH (20:00)
[2018-11-06] MEDS ORDERED: guaiFENesin/DM ER PO SCH (20:15)
[2018-11-06] MEDS ORDERED: Famotidine 20 MG TAB PO SCH (20:15)
[2018-11-06] MEDS ORDERED: Ubidecarenone 50 MG CAP PO SCH (20:15)
--- NOTE | 2018-11-06 20:30 | HP ---
CHIEF COMPLAINT: Increasing shortness of breath. HISTORY OF PRESENT ILLNESS: Mr. Moore is a very pleasant 83-year-old man with a known history of COPD and CHF. He normally uses oxygen at home intermittently whenever he is active such as when taking a shower. The patient states since his recent discharge on October 10, 2018, he has had progressive worsening in his shortness of breath. In the last week, it has become more noticeable and he has developed pitting edema in both legs. He has been requiring oxygen more regularly throughout the day for the last week as well. He was seen by Dr. Draper earlier today and noted to be hypoxic with sats of 80% on 3 L. According to the patient and his daughter, he had significantly increased work of breathing and was tachypneic at rest. He was therefore referred to emergency department to be treated for exacerbation of CHF. During his recent admission, he underwent an echo that showed an improved EF of 45% to 50% with hypokinetic motion of the inferior wall of the left ventricle in the left atrium, was noted to be moderately dilated. In the emergency department, he has undergone a chest x-ray showing severe centrilobular emphysema without purulence, bilateral interstitial infiltrates likely representing pulmonary interstitial edema that remains unchanged from previous chest x-ray done on October 09, 2018. He is also noted to have bilateral small pleural effusions with a slight increase on the left. He has been started on Lasix and given albuterol nebulizer treatments with notable improvement. The patient is no longer short of breath at rest. Feels, he is back to his baseline and his sats have improved to 94% on 3 L. In recent days, he states he has felt well and himself otherwise. He states his appetite has been normal. He denies having any productive cough or hemoptysis. Has not had any fevers, chills, or sweats. Denies experiencing any pain including chest pain. Has not had any abdominal discomfort. No bowel changes or urinary symptoms. All other review of systems are negative. PAST MEDICAL HISTORY: 1. Diastolic heart failure. 2. COPD. 3. Hypertension. 4. Hyperlipidemia. 5. Coronary artery disease. PAST SURGICAL HISTORY: 1. CABG. 2. Repair of sternal dehiscence. 3. Cataract surgery. 4. Hernia surgery. 5. TURP x2. SOCIAL HISTORY: The patient previously smoked 4 to 5 packs per day for 40 years, but stopped 16 years ago. Reports drinking 1 ounce of Fireball liquor before bedtime every day. Does not experience any withdrawals. Denies any illicit drug use. PHYSICAL EXAMINATION: GENERAL APPEARANCE: The patient appears thin, well developed, in no apparent distress. VITAL SIGNS: Temperature 98.3, pulse 76, respirations 20, O2 saturation 98% on 3 L, and blood pressure 175/98. HEENT: Normocephalic and atraumatic. Pupils are equal, round, and reactive to light. Sclerae are without icterus. Oropharynx is clear. NECK: Supple. LUNGS: Without any wheezes, rales, or rhonchi. Reduced breath sounds at the bilateral bases. CARDIAC: Regular rate and rhythm. ABDOMEN: Soft, nontender, and nondistended. Normoactive bowel sounds present. No guarding or rigidity. No renal angle tenderness. EXTREMITIES: +1 bilateral pitting edema involving both lower legs. NEUROLOGIC: Alert and oriented x3. No neuro deficits. Speech normal. SKIN: Without rash or jaundice. ALLERGIES: 1. AUGMENTIN. 2. BACTRIM. 3. CIPRO. 4. HYDRALAZINE. 5. IPRATROPIUM BROMIDE. 6. LEVAQUIN. 7. SULFA. 8. TERAZOSIN. CURRENT MEDICATIONS: 1. Lisinopril 20 mg twice daily. 2. Furosemide 20 mg twice daily. 3. Finasteride 5 mg p.o. daily. 4. Diltiazem 120 mg p.o. daily. 5. Clonidine 0.2 mg p.o. p.r.n. 6. Carvedilol 12.5 mg p.o. twice daily. 7. Aspirin 81 mg p.o. daily. 8. Albuterol nebulizer p.r.n. 9. Asmanex inhaler twice daily. 10. Alprazolam 0.25 mg p.o. at 5:00 p.m. and 0.5 mg p.o. at bedtime. 11. Mucinex 1200 mg/60 mg twice daily. LABORATORY DATA: White blood count 7.9, hemoglobin 11.3, hematocrit 34.5, and platelets 344. Sodium 134, potassium 3.2, chloride 95, anion gap 13, BUN 14, creatinine 1.02, GFR 70, glucose 99, and calcium 9.2. LFTs unremarkable. Troponin I negative. BNP 1585.5. IMAGING DATA: As mentioned above in HPI. IMPRESSION AND PLAN: Mr. Moore is a pleasant 83-year-old man, who is being admitted for management of the following; 1. Congestive heart failure exacerbation. The patient noted to have interstitial edema on chest x-ray that is stable from previous x-ray done at the end of September during his most recent admission. He did have an increased left pleural effusion. Otherwise, right-sided pleural effusion appears stable as well. He has been treated with Lasix in the ER and has had albuterol nebs with notable improvement in his sats. Cardiology has been placed to Dr. Spears, his regular fuel testing technician. The patient states that he felt significantly better during his last admission and slowly had noted recurring symptoms once dropped down to his normal dose of Lasix at home. His BNP is elevated, but improved from the one done at the end of September. We will continue gentle diuresis and continue fluid restrictions. He had recent echo in September showing improved ejection fraction. Echo, therefore not repeated. 2. Chronic obstructive pulmonary disease exacerbation. We will continue albuterol inhalers. The patient without any notable wheezing at present. No clinical suspicion for any infectious process. Therefore, we will hold on any antibiotics and continue to monitor. 3. Hypertension. We will monitor blood pressure and resume home medications. 4. Hypokalemia. We will replace potassium and continue to monitor. 5. Gastrointestinal prophylaxis. 6. Venous thromboembolism prophylaxis with MARIE hose stockings. 7. Code status: Full. The patient's surrogate decision maker is his daughter, who is medical power of cyber systems administrator. The patient's case was discussed with attending, who agrees with plan of care as described above. Job ID: [id number]
[2018-11-06] MEDS: methylPREDNISolone Sod Succ 40 MG VIAL IVP SCH (20:38)
[2018-11-06] MEDS ORDERED: Famotidine/PF 20 mg/2ml Vial SLOW IVP SCH (21:00)
[2018-11-06] MEDS ORDERED: guaiFENesin ER 600 MG TAB PO SCH (21:00)
[2018-11-06] MEDS ORDERED: Lisinopril 20 MG TAB PO SCH (21:00)
[2018-11-06 22:12] LABS: Troponin I Less than 0.010 ng/mL (< 0.028)
[2018-11-06] MEDS: Lorazepam 0.5 MG TAB PO SCH (22:13)
[2018-11-06] MEDS: Acetaminophen 325 MG TAB PO PRN (23:40)
[2018-11-07] MEDS ORDERED: Potassium Chloride 20 MEQ TAB PO SCH ×2 (01:30→18:00)
[2018-11-07 01:54] LABS: #Lymphocytes 0.3 thou/uL (1.20-3.40); #Monocytes 0.1 thou/uL (0.11-0.59); #Neutrophils 4.6 thou/uL (1.40-6.50); %Eosinophils 0.2 % (0.0-10.0); %Monocytes 1.7 % (0.0-10.0); %Neutrophils 93.1 % (42.0-75.0); Mean Corpuscular HGB CONC 32.6 g/dL (32.0-36.0); Mean Corpuscular Hemoglobin 26.5 pg (27.0-31.0); Mean Corpuscular Volume 81.3 fL (78.0-98.0); Mean Platelet Volume 7.2 fL (7.4-10.4); Platelet Count 309 thou/uL (130-400); RBC Distribution Width 13.9 % (11.5-14.5); Red Blood Cell (RBC) Count 4.16 mill/uL (4.70-6.10)
[2018-11-07 02:11] LABS: Anion Gap 13 mmol/L (10-20); BUN (Urea Nitrogen) 18 mg/dL (8.4-25.7); Calc. Creatinine Clearance 44 mL/min (70-130); Calcium 9.5 mg/dL (7.8-10.44); Carbon Dioxide 30 mmol/L (23-31); Chloride 94 mmol/L (98-107); Estimated GFR-MDRD 66; Glucose 253 mg/dL (83-110); Magnesium 1.9 mg/dL (1.6-2.6); Phosphorus 2.7 mg/dL (2.3-4.7); Potassium 3.2 mmol/L (3.5-5.1); Sodium 134 mmol/L (136-145)
[2018-11-07] MEDS ORDERED: Mometasone Furoate 120 PUFF 220 MCG INH SCH (06:00)
[2018-11-07] MEDS ORDERED: Mometasone 200 MCG HFA INHALER INH SCH (06:30)
[2018-11-07] MEDS ORDERED: Carvedilol 6.25 MG TAB PO SCH ×2 (08:00→17:00)
--- NOTE | 2018-11-07 08:01 | CON ---
DATE OF CONSULTATION: HISTORY OF PRESENT ILLNESS: The patient was seen in the office today with shortness of breath and lower extremity swelling. His sats were in the 80s on 3 L. He clearly appeared to be dyspneic. He denies any chest pain. He said, over the last several days, his condition has gotten worse. He has a cough, which is nonproductive. No fever. No chills. No chest pain. He said he has increased his diuretics from Lasix 20 once a day to twice a day without much relief in his urine output and lower extremity swelling. HOME MEDICATIONS: 1. Catapres 0.2. 2. CQ10 of 400. 3. Asmanex 220. 4. Lisinopril 20. 5. Lasix 20 b.i.d. 6. Finasteride 5 mg. 7. Cardizem 120 b.i.d. 8. Coreg 12.5 b.i.d. 9. Aspirin. 10. Xanax p.r.n. ALLERGIES: SULFA, CIPRO, HYDRALAZINE, APPARENTLY IPRATROPIUM, LEVAQUIN, AND PENICILLIN. THE PATIENT HAS BEEN IN AND OUT OF THE HOSPITAL NOW SEVERAL TIMES WITH MARKED WORSENING RESPIRATORY DISTRESS, END-STAGE COPD. HIS EXTENSIVE HISTORY IS WELL OUTLINED. PAST MEDICAL HISTORY: Acute on chronic CHF, COPD, hypertension, and asthma. PAST SURGICAL HISTORY: Bypass, previous prostate surgery, cholecystectomy, hernia repair. SOCIAL HISTORY: Former tobacco. No alcohol. REVIEW OF SYSTEMS: 10-point negative. PHYSICAL EXAMINATION: VITAL SIGNS: In the ER, he was given a neb treatment. His sats are running about 90 to 94 on 3 liters, pulse 80, blood pressure 130/80. EXTREMITIES: 2+ edema. CHEST: Decreased breath sounds. Bilateral crackles. No wheezing. CARDIAC: Normal S1 and S2. No gallops. ABDOMEN: No masses. IMAGING STUDIES: X-ray shows cardiomegaly, bilateral pleural effusion. LABORATORY DATA: Otherwise, white count 7000, H and H 11 and 35, platelet count 344. His pO2 was 67, pCO2 43, pH 7.45 on 3 L nasal O2. Sodium 134, potassium 3.2. BNP is 1585. ASSESSMENT: 1. Acute on chronic respiratory failure, congestive heart failure, chronic obstructive pulmonary disease. 2. Electrolyte imbalance. 3. Major anxiety. PLAN: Pulmonary ty, he will be admitted to the hospital, consult his foot miter operator, Dr. Spears. IV Lasix. Supportive care. Home medication. Neb treatments, brief course of steroids. Consultation note, 70 minutes, 50% direct patient care. Job ID: [id number]
[2018-11-07] MEDS ORDERED: cloNIDine 0.2 MG TAB PO PRN (08:44)
--- NOTE | 2018-11-07 08:55 | PRG ---
DATE OF SERVICE: 11/07/2018 SUBJECTIVE: Catarino Moore, this morning, is awake, alert, and responsive. He is better. He is less short of breath. It is concerned he never got his medicine on time yesterday. OBJECTIVE: VITAL SIGNS: Saturations are now 96% on 3 L, respirations 16, pulse 80, temperature 97, and blood pressure 181/98. CHEST: No wheezing or crackles. CARDIAC: Normal S1 and S2. No gallops. ABDOMEN: No masses. LABORATORY DATA: Lytes are normal. Sodium 134, glucose 253. BNP is 55. IMPRESSION: 1. Congestive heart failure. 2. Chronic obstructive pulmonary disease. 3. Severe deconditioning. PLAN: Continue all home medication. PT, supportive care. We will follow. Hopefully, await input from Cardiology. Can be discharged home in the next day or two. Job ID: [id number]
[2018-11-07] MEDS ORDERED: Finasteride 5 MG TAB PO SCH (09:00)
[2018-11-07] MEDS ORDERED: Famotidine 20 MG TAB PO SCH (09:00)
[2018-11-07] MEDS ORDERED: Furosemide 40 MG/4 ML VIAL IVP SCH (09:00)
[2018-11-07] MEDS ORDERED: Aspirin 81 mg Enteric Coated Tablet PO SCH ×2 (09:00→18:00)
[2018-11-07] MEDS: Lisinopril 20 MG TAB PO SCH ×2 (09:20→18:12)
[2018-11-07] MEDS: Finasteride 5 MG TAB PO SCH ×2 (09:20→09:24)
[2018-11-07] MEDS: Famotidine 20 MG TAB PO SCH (09:20)
[2018-11-07] MEDS: guaiFENesin/DM ER PO SCH ×2 (09:21→18:12)
[2018-11-07] MEDS: Ubidecarenone 50 MG CAP PO SCH ×2 (09:23→18:13)
[2018-11-07] MEDS: Furosemide 40 MG/4 ML VIAL IVP SCH ×2 (09:24→15:09)
[2018-11-07] MEDS: methylPREDNISolone Sod Succ 40 MG VIAL IVP SCH ×2 (09:37→20:45)
[2018-11-07] MEDS ORDERED: Spironolactone 25 MG TAB PO SCH (10:45)
[2018-11-07] MEDS: Albuterol Sulfate 2.5 mg/3 ml Neb NEB SCH ×3 (11:14→19:39)
--- NOTE | 2018-11-07 14:59 | CON ---
DATE OF CONSULTATION: 11/07/2018 HISTORY: Catarino Moore is an 83-year-old white male who I have followed since 11/1997. Please see his history from 07/2018. He has undergone previous bypass surgery. He was hospitalized in 07/2018 with increasing weakness and muscle pain. Atorvastatin was discontinued and his leg strength improved. In mid September, he started to have increasing peripheral edema and furosemide was increased from 20 mg to 40 mg q.a.m. The edema resolved after 4 days, then recurred, and he was hospitalized on 10/07 and diuresed. He ultimately was discharged on 40 mg of Lasix q.a.m. He began to have problems with increased shortness of breath and peripheral edema and is readmitted. He denies any chest discomfort or fever. He does have cough productive of yellowish sputum at times. PAST MEDICAL HISTORY: 1. Hypertension. 2. Severe COPD. 3. Coronary artery disease. 4. Hyperlipidemia. 5. Prediabetes. 6. Atrial fibrillation for the last 3 months, felt not to be an anticoagulation candidate due to frequent falls. MEDICATIONS: 1. Furosemide 20 mg b.i.d. 2. Albuterol nebs q.4 h. 3. Xanax 0.5 mg p.r.n. 4. Aspirin 81 daily. 5. Carvedilol 12.5 mg b.i.d. 6. Diltiazem 120 b.i.d. 7. Clonidine 0.2 daily p.r.n. 8. Finasteride 5 mg daily. 9. Lisinopril 20 mg b.i.d. 10. Asmanex one puff b.i.d. 11. KCl 20 mEq daily. 12. CoQ10 of 200 mg b.i.d. ALLERGIES: SULFA, CIPRO, HYDRALAZINE, IPRATROPIUM, LEVOFLOXACIN, TERAZOSIN, AND AMOXICILLIN. OPERATIONS: 1. CABG. 2. Repair of sternal dehiscence. 3. Cataract surgery. 4. Hernia surgery. 5. TURP x2. SOCIAL HISTORY: Smoked 4-5 packs per day for 40 years, stopped 16 years ago. He occasionally drinks. FAMILY HISTORY: Father had CABG and brother had coronary artery disease. REVIEW OF SYSTEMS: A 12-point review of systems is otherwise unremarkable. PHYSICAL EXAMINATION: VITAL SIGNS: Blood pressure 181/98 and pulse of 80. HEENT: PERRL. NECK: Supple. CHEST: Clear, but distant breath sounds. CARDIOVASCULAR: S1 and S2 are normal without any S3 or S4. There is a 2/6 systolic ejection murmur in the aortic area. ABDOMEN: Normal bowel sounds without tenderness or organomegaly. EXTREMITIES: Revealed 1+ pretibial edema. NEUROLOGIC: Grossly intact. LABORATORY DATA: EKG reveals atrial fibrillation with right bundle-branch block, possible inferior infarction. Hemoglobin 11.0, hematocrit 33.8, white count 5000, and platelets 309,000. D-dimer less than 0.67. A pH 7.45, pCO2 of 43.6, pO2 of 67.8. Sodium 134, potassium 3.2, chloride 94, carbon dioxide 30, BUN 18, and creatinine 1.0. Troponin-I is normal x3. BNP 1585.5. IMPRESSION: 1. [id number] systolic and diastolic heart failure. It is probably exacerbated by his poorly controlled blood pressure. 2. Ischemic cardiomyopathy with ejection fraction of 45% to 50%. 3. Status post coronary artery bypass graft x5. 4. Non-Q-wave myocardial infarction prior to coronary artery bypass graft. 5. Hypertension. 6. Hypercholesterolemia. 7. Muscle pain with statins, requiring their discontinuation. 8. Former smoker. 9. Positive family history. 10. Benign prostatic hypertrophy. 11. Atrial fibrillation for at least 3 months. 12. Poor anticoagulation candidate with falls. PLAN: The patient will continue to be diuresed. Carvedilol dose will be increased and the diltiazem will be discontinued. Low-dose amlodipine may need to be added. Job ID: [id number]
[2018-11-07] MEDS ORDERED: ALPRAZolam 0.25 MG TAB PO SCH (16:00)
[2018-11-07] MEDS ORDERED: Lorazepam 0.5 MG TAB PO SCH (17:00)
--- NOTE | 2018-11-07 18:00 | PDOC.PN ---
- Subjective Encounter Start Date: 11/07/18 Encounter Start Time: 17:45 Subjective: f/u for combined CHF exacerbation on IV Lasix. Feels better overall -: and diuresing. - Objective Resuscitation Status - Order Detail: 11/06/18 18:13 Resuscitation Status Routine Co-Sign Provider: Resuscitation Status: FULL: Full Resuscitation MAR Reviewed: Yes Vital Signs & Weight: Vital Signs (12 hours) Temp Pulse Pulse Pulse Pulse Resp BP 11/07/18 15:43 97.4 F L 68 20 11/07/18 15:22 67 71 11/07/18 14:21 80 22 H 11/07/18 13:00 60 11/07/18 11:56 186/79 H 11/07/18 11:47 98.1 F 64 18 11/07/18 11:17 11/07/18 11:14 80 16 11/07/18 10:40 69 178/78 H 11/07/18 09:32 84 88 11/07/18 09:22 181/98 H 11/07/18 09:20 80 181/98 H 11/07/18 07:33 80 16 11/07/18 07:26 97.8 F 63 18 BP BP BP BP Pulse Ox Pulse Ox Pulse Ox 11/07/18 15:43 160/72 H 92 L 11/07/18 15:22 147/67 H 160/72 H 11/07/18 14:21 11/07/18 13:00 116/58 L 11/07/18 11:56 11/07/18 11:47 186/79 H 93 L 11/07/18 11:17 91 L 11/07/18 11:14 11/07/18 10:40 11/07/18 09:32 147/72 H 185/84 H 82 L 91 L 11/07/18 09:22 11/07/18 09:20 11/07/18 07:33 11/07/18 07:26 181/98 H 96 Pulse Ox 11/07/18 15:43 11/07/18 15:22 11/07/18 14:21 11/07/18 13:00 11/07/18 11:56 11/07/18 11:47 11/07/18 11:17 11/07/18 11:14 11/07/18 10:40 11/07/18 09:32 91 L 11/07/18 09:22 11/07/18 09:20 11/07/18 07:33 11/07/18 07:26 Weight Weight 128 lb 1.6 oz I&O: 11/06/18 11/07/18 11/08/18 06:59 06:59 06:59 Intake Total 1201 5 Output Total 1160 900 Balance 41 -895 Result Diagrams: 11/07/18 01:43 11/07/18 01:43 Additional Labs: Laboratory Tests 10/07/18 11/06/18 11/06/18 11:56 15:10 15:10 Sodium 134 L Potassium 3.2 L B-Natriuretic Peptide 1858.7 H 1585.5 H Radiology Reviewed by me: Yes (PCXR - bilat pulm edema, + emphysematous changes bila) EKG Reviewed by me: Yes (Tele - A-fib in 70's) Phys Exam - Physical Examination Constitutional: NAD HEENT: PERRLA, sclera anicteric, oral pharynx no lesions Neck: no nodes, no JVD, supple, full ROM diminished bilat bases, prolonged exp phase II/ JOCELINE RUSB, S1, S2 Cardiovascular: irregular Gastrointestinal: soft, non-tender, no distention, positive bowel sounds Musculoskeletal: pulses present, edema present Neurological: normal sensation, moves all 4 limbs Psychiatric: A&O x 3 Skin: normal turgor, cap refill <2 seconds Dx/Plan (1) Acute on chronic combined systolic (congestive) and diastolic (congestive) heart failure Code(s): I50.43 - ACUTE ON CHRONIC COMBINED SYSTOLIC AND DIASTOLIC HRT FAIL Status: Acute Comment: EF 45-50% with diast dysfunction, continue IV Lasix another 24h, Coreg 25mg BID (2) Acute respiratory failure with hypoxia Code(s): J96.01 - ACUTE RESPIRATORY FAILURE WITH HYPOXIA Status: Acute Comment: Continue O2 supplementation, titrate to clinical response, uses home O2 intermittently (3) CAD (coronary artery disease) Code(s): I25.10 - ATHSCL HEART DISEASE OF [place] CORONARY ARTERY W/O ANG PCTRS Status: Chronic Comment: Chronic, stable, continue Coreg, ASA (4) HTN (hypertension) Code(s): I10 - ESSENTIAL (PRIMARY) HYPERTENSION Status: Chronic Qualifiers: Hypertension type: essential hypertension Qualified Code(s): I10 - Essential (primary) hypertension Comment: Coreg 25mg BID, Lisinopril 20mg BID - 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
[2018-11-07] MEDS: Carvedilol 25 MG TAB PO SCH (18:12)
[2018-11-07] MEDS: Mometasone Furoate 30 PUFF 220 MCG INH SCH (19:40)
[2018-11-07] MEDS: Lorazepam 0.5 MG TAB PO SCH (21:20)
[2018-11-07] MEDS: Acetaminophen 325 MG TAB PO PRN (22:29)
[2018-11-08] MEDS ORDERED: cloNIDine 0.1 MG TAB PO SCH (03:45)
[2018-11-08 05:10] LABS: #Lymphocytes 0.4 thou/uL (1.20-3.40); #Monocytes 0.6 thou/uL (0.11-0.59); #Neutrophils 12.6 thou/uL (1.40-6.50); %Eosinophils 0.2 % (0.0-10.0); %Lymphocytes 2.7 % (21.0-51.0); %Monocytes 4.4 % (0.0-10.0); %Neutrophils 92.8 % (42.0-75.0); Hemoglobin 10.1 g/dL (14.0-18.0); Mean Corpuscular HGB CONC 32.3 g/dL (32.0-36.0); Mean Corpuscular Volume 80.5 fL (78.0-98.0); Mean Platelet Volume 7.5 fL (7.4-10.4); Platelet Count 296 thou/uL (130-400); Red Blood Cell (RBC) Count 3.89 mill/uL (4.70-6.10); White Blood Cell (WBC) Count 13.6 thou/uL (4.8-10.8)
[2018-11-08 05:27] LABS: Anion Gap 13 mmol/L (10-20); BUN (Urea Nitrogen) 32 mg/dL (8.4-25.7); Calc. Creatinine Clearance 44 mL/min (70-130); Carbon Dioxide 28 mmol/L (23-31); Chloride 94 mmol/L (98-107); Estimated GFR-MDRD 66; Glucose 160 mg/dL (83-110); Potassium 3.1 mmol/L (3.5-5.1); Sodium 132 mmol/L (136-145)
[2018-11-08] MEDS: Albuterol Sulfate 2.5 mg/3 ml Neb NEB SCH ×2 (07:03→10:41)
[2018-11-08] MEDS: Mometasone Furoate 30 PUFF 220 MCG INH SCH (07:06)
[2018-11-08] MEDS ORDERED: Potassium Chloride 20 MEQ TAB PO SCH (08:00)
[2018-11-08] MEDS ORDERED: Spironolactone 25 MG TAB PO SCH (08:00)
[2018-11-08] MEDS ORDERED: Furosemide 20 MG TAB PO SCH (09:00)
--- NOTE | 2018-11-08 09:10 | PRG ---
DATE OF SERVICE: 11/08/2018 SUBJECTIVE: This morning, he said he is feeling better. He is less short of breath, less coughing. Medicine adjusted, to which he is doing better. OBJECTIVE: VITAL SIGNS: Blood pressure is 196/83, saturations are 95% on 2 L, respiratory rate 18, temperature 97. CHEST: Decreased breath sounds. No wheezing. CARDIAC: Normal S1 and S2. No gallops. ABDOMEN: No masses. IMPRESSION: Chronic obstructive pulmonary disease, congestive heart failure. PLAN: The patient has improved. Switch over to oral medication. Disposition as per Cardiology. Job ID: [id number]
[2018-11-08] MEDS: Carvedilol 25 MG TAB PO SCH (09:14)
[2018-11-08] MEDS: Famotidine 20 MG TAB PO SCH (09:15)
[2018-11-08] MEDS: guaiFENesin/DM ER PO SCH (09:16)
[2018-11-08] MEDS: Lisinopril 20 MG TAB PO SCH (09:17)
[2018-11-08] MEDS: Ubidecarenone 50 MG CAP PO SCH (09:17)
[2018-11-08] MEDS: Finasteride 5 MG TAB PO SCH (09:18)
[2018-11-08 11:18] VITALS: BP 169/72; TEMP 97.6
[2018-11-09] MEDS ORDERED: predniSONE 20 MG TAB PO SCH (08:00)
== END 2018-11-08 13:04 | disposition home health service (06) | DRG 291 ==
LOC: ERS 14:56 → 2SW 18:36 → OBSVTOIN 11-07 12:12
PROVIDERS: ADMIT Emergency Medicine; ATTEND Emergency Medicine
DX: I11.0 Hypertensive heart disease with heart failure (principal); J96.21 Acute and chronic respiratory failure with hypoxia; J44.1 Chronic obstructive pulmonary disease with (acute) exacerbation; I50.43 Acute on chronic combined systolic (congestive) and diastolic (congestive) heart failure; E87.6 Hypokalemia; I48.91 Unspecified atrial fibrillation; F41.9 Anxiety disorder, unspecified; E78.5 Hyperlipidemia, unspecified; I25.10 Atherosclerotic heart disease of native coronary artery without angina pectoris; Z79.899 Other long term (current) drug therapy; Z79.82 Long term (current) use of aspirin; Z79.01 Long term (current) use of anticoagulants; Z88.0 Allergy status to penicillin; Z88.1 Allergy status to other antibiotic agents; Z88.2 Allergy status to sulfonamides; Z88.8 Allergy status to other drugs, medicaments and biological substances; Z90.49 Acquired absence of other specified parts of digestive tract; Z87.891 Personal history of nicotine dependence; Z95.1 Presence of aortocoronary bypass graft; Z99.81 Dependence on supplemental oxygen
CPT/HCPCS: 36415; 71045; 80048; 80053; 82805; 83735; 83880; 84100; 84484; 85025; 93005; 93010; 93798; 94640; J1940; J2920; J2930; J7611; J7620

== ENCOUNTER 2018-12-28 02:18 | Inpatient (IN) | payer MEDICARE ==
[2018-12-28] MEDS ORDERED: methylPREDNISolone Sod Succ/PF 125 MG/2 ML VIAL ONE (02:28)
[2018-12-28] MEDS ORDERED: Albuterol Sulfate 2.5 mg/3 ml Neb ONE (02:30)
[2018-12-28 02:50] LABS: Hemoglobin 12.7 g/dL (14.0-18.0); Mean Corpuscular HGB CONC 32.6 g/dL (32.0-36.0); Mean Corpuscular Hemoglobin 25.3 pg (27.0-31.0); Mean Corpuscular Volume 77.5 fL (78.0-98.0); Mean Platelet Volume 7.7 fL (7.4-10.4); Platelet Count 418 thou/uL (130-400); RBC Distribution Width 16.1 % (11.5-14.5); Red Blood Cell (RBC) Count 5.03 mill/uL (4.70-6.10); White Blood Cell (WBC) Count 29.3 thou/uL (4.8-10.8)
[2018-12-28] MEDS ORDERED: Acetaminophen 1,000 MG in Premix Bag 1 BAG IVPB SCH (03:00)
[2018-12-28] MEDS ORDERED: MEROPENEM 1 GM/50 ML 1 GM in Premix Bag 1 BAG IVPB SCH (03:00)
[2018-12-28 03:08] LABS: Actual Bicarbonate (HCO3a) 24.4 mEq/L (22-28); Analyzer IN Cardio ER; Base Excess (BEa) 1.5 mEq/L (-2.0 to +3.0); CO2 Tension 33.1 mmHg (35.0-45.0); Calcium, Ionized 1.16 mmol/L (1.12-1.30); Hemoglobin (Hb) 12.9 g/dL (14.0-18.0); O2 Tension (PaO2) 72.1 mmHg (> 60.0); Potassium - ABG Lab 3.51 mmol/L (3.70-5.30); pH, Arterial 7.49 (7.35-7.45)
[2018-12-28 03:09] LABS: ALT (SGPT) Less than 7 U/L (8-55); AST (SGOT) 18 U/L (5-34); Albumin 4.5 g/dL (3.4-4.8); Alkaline Phosphatase 124 U/L (40-150); Anion Gap 15 mmol/L (10-20); BUN (Urea Nitrogen) 15 mg/dL (8.4-25.7); Calc. Creatinine Clearance 0 mL/min (70-130); Calcium 10.3 mg/dL (7.8-10.44); Carbon Dioxide 25 mmol/L (23-31); Chloride 97 mmol/L (98-107); Estimated GFR-MDRD 89; Globulin 3.4 g/dL (2.4-3.5); Glucose 119 mg/dL (83-110); Potassium 3.9 mmol/L (3.5-5.1); Protein, Total 7.9 g/dL (5.8-8.1); Sodium 133 mmol/L (136-145)
[2018-12-28 03:11] LABS: Band 9 % (5-11); Eosinophils 1 % (0-10); Lymphocytes 5 % (21-51); MDiff Complete? YES; Monocytes 6 % (0-10); Neutrophil 79 % (42-75)
[2018-12-28 03:47] LABS: Bilirubin Negative (Negative); Blood, Urine Negative (Negative); Clarity Clear (Clear); Glucose, Urine (Dipstick) Normal (Negative); Leukocyte Negative Leu/uL (Negative); Nitrite Negative (Negative); Protein, Urine (Dipstick) Negative (Neg-Trace); Urobilinogen Normal mg/dL (Less than 2)
[2018-12-28 04:33] LABS: Puncture Site RRA
[2018-12-28] MEDS ORDERED: Lorazepam 2 MG/ML VIAL ONE (04:33)
[2018-12-28 04:35] LABS: ALV-art Gradient 100.425 (0-20)
[2018-12-28] MEDS ORDERED: Albuterol Sulfate 2.5 mg/3 ml Neb NEB PRN (07:09)
[2018-12-28] MEDS ORDERED: Calcium Carbonate 500 MG ChewTAB PO PRN (07:10)
[2018-12-28] MEDS ORDERED: ALPRAZolam 0.25 MG TAB PO PRN (07:13)
[2018-12-28] MEDS ORDERED: cloNIDine 0.1 MG TAB PO PRN (07:14)
[2018-12-28] MEDS ORDERED: methylPREDNISolone Sod Succ 40 MG VIAL IVP SCH (07:15)
[2018-12-28] MEDS ORDERED: Bacteriostatic Water 30 ML VIAL FS PRN (07:23)
--- NOTE | 2018-12-28 08:51 | RAD ---
PORTABLE CHEST ONE VIEW: 12/28/2018 2:40 a.m. HISTORY: Chest pain. Dyspnea. COMPARISON: 11/06/2018 FINDINGS: Changes of median sternotomy are again seen. The heart size is stable. There is patchy density in t he right infrahilar lung. Changes of emphysema are again noted. There may be small pleural effusion s. Findings are suggestive of pneumonia. POS: [facility]
[2018-12-28] MEDS: Cefepime 1 GM in Sodium Chloride 0.9% 100 ML IVPB SCH ×2 (09:06→21:15)
[2018-12-28] MEDS: methylPREDNISolone Sod Succ 40 MG VIAL IVP SCH ×2 (09:06→17:11)
[2018-12-28] MEDS: Saccharomyces boulardii 250 MG CAP PO SCH (09:07)
[2018-12-28] MEDS: guaiFENesin ER 600 MG TAB PO SCH ×2 (09:07→21:15)
[2018-12-28] MEDS: Enoxaparin Sodium 40 MG/0.4 ML SYRINGE SC SCH (09:07)
[2018-12-28] MEDS: Doxycycline 100 MG CAP PO SCH ×2 (09:07→21:15)
[2018-12-28] MEDS: Albuterol Sulfate 2.5 mg/3 ml Neb NEB SCH ×4 (10:56→22:08)
--- NOTE | 2018-12-28 16:42 | CON ---
DATE OF CONSULTATION: 12/28/2018 SERVICE: Pulmonary Medicine. REASON FOR CONSULTATION: COPD exacerbation. HISTORY OF PRESENT ILLNESS: The patient is an 83-year-old male with past medical history significant for CHF as well as COPD, he is on home oxygen. About a month ago, he had an episode of hemoptysis. He was given a course of steroids and antibiotics, and things got a lot better. Ultimately, he returned to his usual state of health. He ended up getting a new medication for dyslipidemia on Sunday. Starting , he had increasing shortness of breath that progressed over a period of 3 days. He came in last night at midnight with inability to breathe. His saturations were in the 80s. Denies any current fevers, chills, nausea, or vomiting. He is coughing and started having some hemoptysis once again. This makes with purulent material. In the emergency department, he got antibiotics, steroids, and nebulized medications. He had infiltrate in the lung. He was placed on BiPAP because of his increased work of breathing. He worked for about 2 to 3 hours, but requested that it would be removed. Ultimately, he is on 1 L nasal cannula right now. He has mild respiratory distress with accessory muscle use, but tells us he is at baseline currently. PAST MEDICAL HISTORY: 1. Chronic systolic and diastolic heart failure. 2. COPD. 3. Hypertension. 4. Dyslipidemia. 5. Coronary artery disease. PAST SURGICAL HISTORY: 1. Coronary artery bypass graft. 2. Sternal dehiscence with subsequent repair. 3. Cataract surgery. 4. Herniorrhaphy. 5. Transurethral resection of the prostate x2. SOCIAL HISTORY: He has a greater than 200 pack-year history of smoking. He stopped about 16 years ago. He drinks a Fireball whiskey every night before going to bed. He denies any street drugs. He has no exposure to chemicals, dust, asbestos, or tuberculosis. He has never had any withdrawal features from alcohol. FAMILY HISTORY: Noncontributory. ALLERGIES: SULFA, CIPRO, HYDRALAZINE, IPRATROPIUM, LEVOFLOXACIN, TERAZOSIN, AND AUGMENTIN. I DO NOT KNOW WHAT HIS ALLERGIC REACTION IS TO ANY OF THESE. MEDICATIONS: List of his inpatient medications was reviewed. No specific updates were made at this time. REVIEW OF SYSTEMS: General, head, ears, eyes, nose, throat, cardiovascular, respiratory, GI, , musculoskeletal, neurologic, and skin are negative except as mentioned in the HPI. PHYSICAL EXAMINATION: VITAL SIGNS: Afebrile with a T-max of 99.8, pulse 91, blood pressure 165/72, respirations 14, and saturation 99% on 1 L nasal cannula. GENERAL: The patient is awake and alert. He is in mild respiratory distress with accessory muscle use and tachypnea. HEENT: Normocephalic and atraumatic. Sclerae white. Conjunctivae pink. Oral mucosa is moist without lesions. LUNGS: There is very reduced air entry. Rhonchi and crackles are present. I do not think he is moving enough air to appreciate any wheezing. He does have a prolonged expiratory phase. HEART: Normal rate, regular. ABDOMEN: Soft, nontender, and nondistended. Bowel sounds are positive. MUSCULOSKELETAL: No cyanosis or clubbing. No pitting in the bilateral lower extremities. NEUROLOGIC: Grossly nonfocal. LABORATORY DATA: WBC 29.3, hemoglobin 12.7, and platelets 418,000. Neutrophil count is 79% on top of 9% bands. A pH of 7.49, pCO2 of 33, PO2 of 72, corresponding to a saturation of 95. This is while he was wearing his BiPAP. Basic metabolic profile and liver function studies are otherwise unremarkable. BNP 919, which is above his baseline of closer to 300. Troponin is negative x1. Urinalysis is unremarkable. IMAGING: Chest x-ray demonstrates a right infrahilar infiltrate. He has always had fullness in that region. He has left-sided pleural parenchymal disease at the base, which appears to be mostly chronic. He has extensive interstitial changes throughout bilateral lung tracey. Hyperexpansion of the lungs is also noted. ASSESSMENT: 1. Acute on chronic hypoxic respiratory failure. 2. Chronic obstructive pulmonary disease with acute exacerbation. 3. Healthcare-associated pneumonia. 4. Hemoptysis, now recurrent. DISCUSSION AND PLAN: Since the patient has had multiple episodes of hemoptysis that have come and gone with steroids and antibiotics, we will pursue a CT of the chest. This will be postponed for 24 hours to see if his tachypnea will improve before we send him down for this study. I will continue antibiotics, nebulized medications. I will introduce a brief course of steroids. Pulmonary/Critical Care will continue to follow very closely while he remains in-house. 70 minutes have been devoted to this patient in various activities. I personally reviewed all imaging studies and laboratory data noted within this document. For fifty percent of this time, I was interacting with the patient at the bedside or coordinating care with the care team. For the remainder of the time I was immediately available to the patient in the hospital unit. Job ID: [id number] MTDD
[2018-12-28] MEDS ORDERED: ALPRAZolam 0.5 MG TAB PO SCH (22:45)
[2018-12-29] MEDS: Acetaminophen 325 MG TAB PO PRN (00:19)
[2018-12-29] MEDS: methylPREDNISolone Sod Succ 40 MG VIAL IVP SCH ×2 (00:20→09:44)
[2018-12-29] MEDS: Albuterol Sulfate 2.5 mg/3 ml Neb NEB SCH ×6 (02:27→23:50)
[2018-12-29 05:10] LABS: #Lymphocytes 0.5 thou/uL (1.20-3.40); #Monocytes 1.2 thou/uL (0.11-0.59); #Neutrophils 19.9 thou/uL (1.40-6.50); %Eosinophils 0.2 % (0.0-10.0); %Lymphocytes 2.4 % (21.0-51.0); %Monocytes 5.7 % (0.0-10.0); %Neutrophils 91.7 % (42.0-75.0); Hemoglobin 11.4 g/dL (14.0-18.0); Mean Corpuscular HGB CONC 32.2 g/dL (32.0-36.0); Mean Corpuscular Hemoglobin 25.4 pg (27.0-31.0); Mean Corpuscular Volume 78.9 fL (78.0-98.0); Mean Platelet Volume 7.8 fL (7.4-10.4); Platelet Count 345 thou/uL (130-400); RBC Distribution Width 16.4 % (11.5-14.5); Red Blood Cell (RBC) Count 4.47 mill/uL (4.70-6.10); White Blood Cell (WBC) Count 21.7 thou/uL (4.8-10.8)
[2018-12-29 05:34] LABS: Anion Gap 12 mmol/L (10-20); BUN (Urea Nitrogen) 24 mg/dL (8.4-25.7); Calc. Creatinine Clearance 51 mL/min (70-130); Calcium 9.6 mg/dL (7.8-10.44); Carbon Dioxide 23 mmol/L (23-31); Chloride 101 mmol/L (98-107); Estimated GFR-MDRD 75; Glucose 159 mg/dL (83-110); Magnesium 2.1 mg/dL (1.6-2.6); Potassium 3.5 mmol/L (3.5-5.1); Sodium 132 mmol/L (136-145)
[2018-12-29] MEDS: Enoxaparin Sodium 40 MG/0.4 ML SYRINGE SC SCH (09:40)
[2018-12-29] MEDS: Cefepime 1 GM in Sodium Chloride 0.9% 100 ML IVPB SCH ×2 (09:40→20:41)
[2018-12-29] MEDS: Doxycycline 100 MG CAP PO SCH ×2 (09:41→20:41)
[2018-12-29] MEDS: Ubidecarenone 50 MG CAP PO SCH ×2 (09:41→18:09)
[2018-12-29] MEDS: ALPRAZolam 0.25 MG TAB PO SCH (09:42)
[2018-12-29] MEDS: guaiFENesin ER 600 MG TAB PO SCH ×2 (09:43→20:41)
[2018-12-29] MEDS: Finasteride 5 MG TAB PO SCH (09:43)
[2018-12-29] MEDS: Saccharomyces boulardii 250 MG CAP PO SCH (09:43)
[2018-12-29] MEDS: Amlodipine 5 MG TAB PO SCH (09:43)
[2018-12-29] MEDS: Famotidine 20 MG TAB PO SCH (09:43)
[2018-12-29] MEDS ORDERED: Furosemide 20 MG/2 ML VIAL SLOW IVP SCH (12:45)
--- NOTE | 2018-12-29 12:48 | CT ---
CT CHEST WITH IV CONTRAST: HISTORY: Hemoptysis. COMPARISON: 09/28/2011 FINDINGS: Severe emphysematous changes are again seen. There is a 1 cm nodular density versus scarring in the anterior left upper lobe. Mild patchy infiltrates are seen in the lower lung tracey with a small rig ht pleural effusion. There are vascular calcifications without evidence of aneurysmal dilatation of the abdominal aorta. No pericardial or left pleural effusion is seen. There is consolidation/subsegmental atelectasis in the medial segment of the right middle lobe. Upper abdominal tomograms demonstrate stable low density lesions in the liver and a stable right adre nal nodule. Bilateral renal cysts are again seen. The left adrenal gland has not been imaged on thi s study. There is a subcapsular hematoma in the spleen, lacerations at the anterior aspect of the spleen, and a 2.5 cm lesion at the medial aspect of the spleen, likely hematoma; containing a focus of internal e nhancement (? active bleed). These findings are new since 2011. No adjacent rib fractures are ident ified. IMPRESSION: 1. Emphysematous changes in the lung tracey. 2. A 1 cm nodule versus scarring in the left upper lobe. 3. Small right pleural effusion. 4. Bibasilar infiltrates and subsegmental atelectasis/infiltrate in the right middle lobe. 5. Hematomas and lacerations in the spleen. Active extravasation cannot be excluded. Discussed over the telephone with Dr. Champ Pennington at 12:30 p.m. CODE LEIDY POS: [facility]
--- NOTE | 2018-12-29 14:18 | PRG ---
DATE OF SERVICE: 12/29/2018 SERVICE: Pulmonary Medicine. INTERVAL HISTORY: The patient is doing well from respiratory standpoint. He is breathing much better. Denies any current cough, nausea, vomiting, or shortness of breath. His breathing is essentially back to baseline. He had a little bit more hemoptysis this morning. Otherwise, there has been no interval change to his condition. PHYSICAL EXAMINATION: VITAL SIGNS: Afebrile, pulse 74, blood pressure 129/69, respirations 28, and saturation 95% on 1.5 L nasal cannula. GENERAL: The patient is awake and alert, in no apparent distress. LUNGS: Reduced air entry, but improved. There is a prolonged expiratory phase. Wheezing is present. HEART: Normal rate, regular. ABDOMEN: Soft, nontender, and nondistended. Bowel sounds are positive. MUSCULOSKELETAL: No cyanosis or clubbing. No pitting in the bilateral lower extremities. NEUROLOGIC: Grossly nonfocal. IMAGING DATA: CT of the chest demonstrates no evidence of pulmonary masses or nodules. He has extensive emphysematous changes. Small 1 cm ground-glass nodules present in the left upper lobe. There is a very small right-sided pleural effusion. Bibasilar infiltrates are present. There is chronic infiltrate in the right middle lobe with scar tissue there. There is a hematoma and laceration of the spleen, active extravasation cannot be entirely excluded. ASSESSMENT: 1. Acute on chronic hypoxic respiratory failure. 2. Chronic obstructive pulmonary disease with acute exacerbation. 3. Healthcare-associated pneumonia. 4. Hemoptysis. 5. Abnormal CT suggestive of splenic laceration and hematoma. DISCUSSION AND PLAN: I went back and asked the patient if he had any trauma on his left side. He actually did not. He does not have any abdominal discomfort at this point. His hemoglobin seems to be stable for the most part. We will put a surgical consultation in to help guide us through this process. Pulmonary/Critical Care will continue to follow along. We will keep him off the BiPAP. If he can go 24 hours without its use, we can transition him to the floor. Supportive care including steroids, nebulized medications, and antibiotics will be continued. Physical Therapy consultation will be placed, and Aguayo will be removed today. Job ID: [id number]
--- NOTE | 2018-12-29 15:05 | PDOC.HOSPP ---
- Subjective Encounter Date: 12/29/18 Encounter Time: 09:00 Subjective: Pt seen for followup re: acute on chronic hypoxic respiratry failure. feels better. Less blood in sputum. - Objective Vital Signs & Weight: Vital Signs (12 hours) Temp Pulse Resp Pulse Ox 12/29/18 15:00 82 24 H 94 L 12/29/18 10:37 98.8 F 12/29/18 10:22 95 12/29/18 10:20 74 28 H 95 12/29/18 09:43 74 12/29/18 07:50 99 12/29/18 07:06 99.0 F 12/29/18 05:40 98.8 F Weight Weight 129 lb 14.4 oz Most Recent Monitor Data Heart Rate from ECG 75 NIBP 131/69 NIBP BP-Mean 89 Respiration from ECG 27 SpO2 98 I&O: 12/28/18 12/29/18 12/30/18 06:59 06:59 06:59 Intake Total 160 Output Total 1650 Balance -1490 Result Diagrams: 12/29/18 04:48 12/29/18 04:48 Additional Labs: Labs and MARs reviewed by me EKG Reviewed by me: Yes (Tele: NSR) ROS - Review of Systems Constitutional: denies: fever, chills, sweats, weakness, malaise Respiratory: reports: cough, hemoptysis. denies: dry, shortness of breath, SOB with excertion, pleuritic pain, sputum, wheezing Cardiovascular: denies: chest pain, palpitations, orthopnea, paroxysmal noc. dyspnea, edema, light headedness Gastrointestinal: denies: nausea, vomitting, abdominal pain, diarrhea, constipation, melena, hematochezia Genitourinary: denies: dysuria, frequency, incontinence, hematuria, retention - Medication Medications: Active Medications Generic Name Dose Route Start Last Admin Trade Name Freq PRN Reason Stop Dose Admin Acetaminophen 650 mg 12/28/18 07:10 12/29/18 00:19 Tylenol PO 650 mg Q4H PRN Administration Headache/Fever/Mild Pain (1-3) Albuterol Sulfate 2.5 mg 12/28/18 10:30 12/29/18 15:00 Ventolin NEB 2.5 mg [id number] LUZMA Administration Alprazolam 0.25 mg 12/29/18 09:00 12/29/18 09:42 Xanax PO 0.25 mg QAM LUZMA Administration Amlodipine Besylate 5 mg 12/29/18 09:00 12/29/18 09:43 Norvasc PO 5 mg DAILY LUZMA Administration Coenzyme Q10 200 mg 12/29/18 09:00 12/29/18 09:41 Coenzyme Q10 PO 200 mg 0900,1800 LUZMA Administration Doxycycline Hyclate 100 mg 12/28/18 09:00 12/29/18 09:41 Vibramycin PO 100 mg BID LUZMA Administration Famotidine 20 mg 12/29/18 09:00 12/29/18 09:43 Pepcid PO 20 mg DAILY LUZMA Administration Finasteride 5 mg 12/29/18 09:00 12/29/18 09:43 Proscar PO 5 mg DAILY LUZMA Administration Guaifenesin 600 mg 12/28/18 09:00 12/29/18 09:43 Mucinex PO 600 mg Q12HR LUZMA Administration Cefepime HCl 1 gm/ Sodium 100 mls @ 200 mls/hr 12/28/18 08:00 12/29/18 09:40 Chloride IVPB 100 mls Q12H LUZMA Administration Saccharomyces Boulardii 250 mg 12/28/18 09:00 12/29/18 09:43 Florastor PO 250 mg DAILY LUZMA Administration - Exam NAD, awake alert ENT: normocephalic atraumatic, moist mucosa Neck: supple, symmetric, no JVD, no thyromegaly Heart: RRR, no gallops, no rubs, normal peripheral pulses Respiratory: no rales, no ronchi, wheezes Gastrointestinal: soft, non-tender, non-distended, normal bowel sounds Skin: no rashes Neurological: no weakness Psychiatric: normal affect, normal behavior, A&O x 3 Hosp A/P (1) Acute on chronic respiratory failure with hypoxia Code(s): J96.21 - ACUTE AND CHRONIC RESPIRATORY FAILURE WITH HYPOXIA Status: Acute (2) HCAP (healthcare-associated pneumonia) Code(s): J18.9 - PNEUMONIA, UNSPECIFIED ORGANISM Status: Acute (3) COPD exacerbation Code(s): J44.1 - CHRONIC OBSTRUCTIVE PULMONARY DISEASE W (ACUTE) EXACERBATION Status: Acute (4) Anxiety Code(s): F41.9 - ANXIETY DISORDER, UNSPECIFIED Status: Chronic (5) BPH (benign prostatic hyperplasia) Code(s): N40.0 - BENIGN PROSTATIC HYPERPLASIA WITHOUT LOWER URINRY TRACT SYMP Status: Chronic (6) HLD (hyperlipidemia) Code(s): E78.5 - HYPERLIPIDEMIA, UNSPECIFIED Status: Chronic (7) HTN (hypertension) Code(s): I10 - ESSENTIAL (PRIMARY) HYPERTENSION Status: Chronic Qualifiers: Hypertension type: essential hypertension Qualified Code(s): I10 - Essential (primary) hypertension - Plan continue antibiotics, out of bed/ambulate Slowly improving. Continue IV cefepime and doxycycline. Continue lorazepam as at home. Blood pressure controlled.
[2018-12-29] MEDS ORDERED: ALPRAZolam 0.25 MG TAB PO SCH (16:00)
[2018-12-29] MEDS ORDERED: Furosemide 20 MG TAB PO SCH (18:00)
[2018-12-29] MEDS: Aspirin 81 mg Enteric Coated Tablet PO SCH (18:09)
--- NOTE | 2018-12-29 18:48 | CON ---
DATE OF CONSULTATION: 12/29/2018 CHIEF COMPLAINT: Splenic lacerations. HISTORY OF PRESENT ILLNESS: This is an 83-year-old male who has a history of COPD with multiple exacerbation and is needing frequent short courses of steroids, who presents with admission for hypoxia, dyspnea, and COPD exacerbation. He has improved from that. He had a CT of his chest, where the upper part of the abdomen is visualized, showing evidence of splenic laceration versus evidence of acute or chronic splenic laceration. There is no blood around the spleen. He has been hemodynamically stable. His hemoglobin is low and it has been stable overnight. He is admitted to the [facility]. He notes an episode a few months ago where he was reaching for something and felt a pop and had some pretty severe left flank pain, but it improved overnight. He has had no symptoms of that sense. He denies history of previous spleen trauma that he knows of. No history of fall. No history of bruising associated with that. There was no evidence of fracture of the rib on the CT scan. PAST MEDICAL HISTORY: Includes; 1. COPD. 2. CHF. 3. Hypertension. 4. Dyslipidemia. 5. Coronary artery disease. SURGICAL HISTORY: 1. CABG. 2. Cataract. 3. Hernia. 4. TURP. MEDICATIONS: See list in chart. ALLERGIES: INCLUDE SULFA, CIPRO, HYDRALAZINE, IPRATROPIUM, LEVOFLOXACIN, TERAZOSIN, AND AUGMENTIN. SOCIAL HISTORY: Former smoker. Occasional alcohol. No other drugs. REVIEW OF SYSTEMS: Ten-system review of systems is otherwise negative unless described above. PHYSICAL EXAMINATION: VITAL SIGNS: His blood pressure is 133/79, his pulse is 82, respirations are 24, and his O2 saturation is 94% on 1.5L. CHEST: Bilateral coarse breath sounds. HEART: Regular rate. ABDOMEN: Soft, nontender, and nondistended. No flank tenderness. EXTREMITIES: No ischemia or edema to extremities. LABORATORY DATA: White blood cell count is 21, and hemoglobin 11. Creatinine is 0.96. Liver function tests normal. IMAGING STUDIES: CT scan reveals evidence of splenic laceration. There was no obvious active extravasation. There was no blood around the spleen. 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 There is no real acute blood in the abdomen. We cannot see the lower aspect of the spleen; however, given the fact that he is not symptomatic, I think this is an old injury, and since he just had a scan with IV contrast, I will not repeat that. We will follow him clinically. His hemoglobin dropped from 12 yesterday to 11 today, that is likely partially dilutional and I suspect this is an old injury, that is now healing. We will follow with you. No plans for any operative intervention. Job ID: [id number]
[2018-12-29] MEDS ORDERED: Mometasone Furoate 120 PUFF 220 MCG INH SCH (19:00)
[2018-12-29] MEDS: ALPRAZolam 0.5 MG TAB PO SCH (23:32)
[2018-12-30] MEDS: Acetaminophen 325 MG TAB PO PRN (02:24)
[2018-12-30] MEDS: Albuterol Sulfate 2.5 mg/3 ml Neb NEB SCH ×6 (03:09→22:28)
--- NOTE | 2018-12-30 07:19 | HP ---
PRIMARY CARE PHYSICIAN: Dr. Michele Pan. PRIMARY CUSTOM GRINDER: Dr. Darper. CHIEF COMPLAINT: Shortness of breath. HISTORY OF PRESENT ILLNESS: The patient is an 83-year-old male with COPD, presented to the emergency room with above complaints. Over the last 1 to 2 days, the patient developed gradual worsening of shortness of breath. Shortness of breath got worse last night. He also had cough that was productive of small amount of thick phlegm. The shortness of breath continued to worsen despite using supplemental oxygen. He was started on noninvasive positive-pressure ventilation by EMS. His initial room air saturation was 78%. He denies any fever or chills. He received nebulizer treatments prior to ER arrival. He denies any chest pain, palpitations, lightheadedness, or syncope. PAST MEDICAL HISTORY: 1. COPD. 2. Chronic respiratory failure, on home oxygen on an as-needed basis. 3. Coronary artery disease. 4. Hypertension. 5. Hyperlipidemia. 6. Chronic diastolic heart failure. PAST SURGICAL HISTORY: 1. Coronary artery bypass grafting in 2002. 2. Cholecystectomy. 3. Hernia surgery. 4. TURP. 5. Cystoscopy in 2018. ALLERGIES: THE PATIENT IS ALLERGIC TO, 1. BACTRIM THAT CAUSES HIVES. 2. CIPRO THAT CAUSES TENDON ISSUES. 3. IPRATROPIUM. 4. TERAZOSIN THAT CAUSES EDEMA. 5. AMOXICILLIN CAUSES DIARRHEA. 6. LEVOFLOXACIN. 7. SULFA. 8. HYDROCHLOROTHIAZIDE. 9. HYDRALAZINE. FAMILY HISTORY: Father at the age of 67 of heart disease. He also had hypertension. Mother at the age of 93 with Alzheimer dementia. One sibling with brain tumor. SOCIAL HISTORY: The patient is a former smoker, quit in the year 1999. He has [id number] smoking history. He currently lives at home with his family. No drug use. Drinks alcohol socially. He is full code, and the daughter is the surrogate decision maker. REVIEW OF SYSTEMS: All other review of systems reviewed and were found negative. CURRENT HOME MEDICATIONS: Family to provide accurate list of medications. There are no family at the bedside. He is currently on noninvasive positive-pressure ventilation and is unable to provide the names with the dosages of the medications. PHYSICAL EXAMINATION: VITAL SIGNS: In the emergency room showed temperature 102.2 with respirations of 38, blood pressure 174/117, O2 saturation 96% on noninvasive positive-pressure ventilation. GENERAL: An 83-year-old male in respiratory distress. He is currently on noninvasive positive-pressure ventilation. HEENT: Head, atraumatic and normocephalic. Sclerae anicteric. Moist mucous membranes. No oral lesion. NECK: Supple. No JVD. No carotid bruit. LUNGS: Showed diffuse rhonchi with scattered wheezing. There is accessory muscle use. There were rales at the bases, mainly on the right. ABDOMEN: Soft, nontender. Bowel sounds present. No rebound or guarding. HEART: S1 and S2 present, tachycardic. No rubs or gallops. Healed midline scar from previous CABG. EXTREMITIES: Trace edema in bilateral lower extremities. No calf tenderness. SKIN: Warm and dry. LYMPH NODES: No palpable lymph nodes in the neck. PERIPHERAL VASCULAR: Radial pulses palpable bilaterally. MUSCULOSKELETAL: No joint swelling or tenderness. LABORATORY FINDINGS: WBC 29.3 with hemoglobin 12.7, hematocrit 39, platelets of 418. Chemistries showed sodium 133, potassium 3.9, chloride 97, bicarb 25, BUN 15, and creatinine 0.83. LFTs in normal range. BNP 919. Troponin was negative. Lactic acid was normal. UA was normal. ABG showed pH 7.49, pCO2 of 33.1, PO2 of 73.1 on 30% FiO2 noninvasive positive-pressure ventilation. EKG by my review showed possible MAT. Chest x-ray by my review showed possible infiltrate at the right lung base. IMPRESSION: 1. Acute on chronic hypoxic respiratory failure secondary to chronic obstructive pulmonary disease exacerbation with pneumonia, suspected pneumococcal. 2. Tachyarrhythmia, suspected multifocal atrial tachycardia. 3. Chronic diastolic heart failure, appears to be compensated. 4. Sepsis with acute organ dysfunction secondary to pneumonia. 5. Chronic anemia. 6. Mild hyponatremia. 7. Chronic kidney disease, stage 2. 8. Coronary artery disease, status post coronary artery bypass grafting. 9. Hypertension. 10. Benign prostatic hypertrophy. 11. Hyperlipidemia. 12. Anxiety. PLAN: The patient will be monitored in the intermediate care unit. We will continue noninvasive positive-pressure ventilation. We will continue nebulizer treatments every 4 hourly. We will start him on cefepime along with doxycycline. Critical Care consultation. A.m. labs. Resume home medications once confirmed. Plan of care was discussed with the patient in detail. He stated understanding. The patient will require 2 to 3 days for stabilization. Job ID: [id number] MTDD
[2018-12-30 07:54] LABS: #Lymphocytes 0.8 thou/uL (1.20-3.40); #Monocytes 2.3 thou/uL (0.11-0.59); #Neutrophils 19.2 thou/uL (1.40-6.50); %Eosinophils 0.1 % (0.0-10.0); %Lymphocytes 3.4 % (21.0-51.0); %Monocytes 10.4 % (0.0-10.0); Hemoglobin 12.1 g/dL (14.0-18.0); Mean Corpuscular HGB CONC 31.1 g/dL (32.0-36.0); Mean Corpuscular Hemoglobin 24.6 pg (27.0-31.0); Mean Corpuscular Volume 79.2 fL (78.0-98.0); Mean Platelet Volume 7.7 fL (7.4-10.4); Platelet Count 392 thou/uL (130-400); RBC Distribution Width 16.8 % (11.5-14.5); Red Blood Cell (RBC) Count 4.91 mill/uL (4.70-6.10); White Blood Cell (WBC) Count 22.4 thou/uL (4.8-10.8)
[2018-12-30] MEDS: Mometasone Furoate 120 PUFF 220 MCG INH SCH ×2 (07:57→19:29)
[2018-12-30] MEDS ORDERED: Furosemide 20 MG/2 ML VIAL SLOW IVP SCH (09:00)
[2018-12-30] MEDS: Ubidecarenone 50 MG CAP PO SCH ×2 (10:08→18:37)
--- NOTE | 2018-12-30 10:08 | PRG ---
DATE OF SERVICE: 12/30/2018 SUBJECTIVE: Mr. Moore has no pain today. He is hemodynamically stable. PHYSICAL EXAMINATION: ABDOMEN: On physical examination, his abdomen is soft. He has no flank or abdominal tenderness. LABORATORY DATA: His hemoglobin today is 12. ASSESSMENT: I suspect he has a remote history of splenic rupture or tear and his current CT likely did show an old healing injury. There was no acute blood around the spleen on the scan. PLAN: No further plans for surgical intervention. I would have him call me or follow up with any increase in flank pain, but I think a rebleed is unlikely. Job ID: [id number]
[2018-12-30] MEDS: Saccharomyces boulardii 250 MG CAP PO SCH (10:09)
[2018-12-30] MEDS: ALPRAZolam 0.25 MG TAB PO SCH (10:09)
[2018-12-30] MEDS: Doxycycline 100 MG CAP PO SCH (10:09)
[2018-12-30] MEDS: Finasteride 5 MG TAB PO SCH (10:09)
[2018-12-30] MEDS: predniSONE 20 MG TAB PO SCH (10:09)
[2018-12-30] MEDS: Amlodipine 5 MG TAB PO SCH (10:09)
[2018-12-30] MEDS: Famotidine 20 MG TAB PO SCH (10:10)
[2018-12-30] MEDS: guaiFENesin ER 600 MG TAB PO SCH ×2 (10:10→20:53)
[2018-12-30] MEDS: Cefepime 1 GM in Sodium Chloride 0.9% 100 ML IVPB SCH (10:10)
--- NOTE | 2018-12-30 10:17 | PRG ---
DATE OF SERVICE: 12/30/2018 SUBJECTIVE: This morning, he said he is feeling better. He is less short of breath. OBJECTIVE: VITAL SIGNS: Saturations are 98% on 1 liter, temperature 98, pulse 82, respiratory rate 18, and blood pressure is 130/80. CHEST: Decreased breath sounds. No wheezing. CARDIAC: Normal S1 and S2. No gallops. ABDOMEN: No masses. LABORATORY DATA: White count 20,000, hemoglobin and hematocrit unremarkable, platelet count is normal. Leukocyte is better. 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 ASSESSMENT: End-stage chronic obstructive pulmonary disease, coronary artery disease, major anxiety. PLAN: Pulmonary standpoint of view, we will try and adjust antibiotics. We will discuss with pharmacy. Otherwise supportive care. PT will follow. Hopefully, home in the next 24 to 48 hours. Job ID: [id number]
[2018-12-30] MEDS ORDERED: Cefdinir 300 MG CAP PO SCH ×3 (12:00→14:15)
--- NOTE | 2018-12-30 13:34 | PDOC.HOSPP ---
- Subjective Encounter Date: 12/30/18 Encounter Time: 10:00 Subjective: Pt seen for followup re: acute on chronic hypoxic respiratory failure. feels better. - Objective Vital Signs & Weight: Vital Signs (12 hours) Temp Pulse Resp Pulse Ox 12/30/18 11:28 87 17 98 12/30/18 10:09 82 12/30/18 08:00 98 12/30/18 07:58 100 12/30/18 07:57 82 20 100 12/30/18 07:11 98.2 F 12/30/18 03:09 97.6 F Weight Weight 129 lb Most Recent Monitor Data Heart Rate from ECG 81 NIBP 148/69 NIBP BP-Mean 95 Respiration from ECG 24 SpO2 100 I&O: 12/29/18 12/30/18 12/31/18 06:59 06:59 06:59 Intake Total 160 1260 Output Total 1650 1825 Balance -6981 -342 Result Diagrams: 12/30/18 07:26 12/29/18 04:48 Additional Labs: labs and MARs reviewed by me EKG Reviewed by me: Yes (tele: NSR) ROS - Review of Systems Respiratory: reports: cough, SOB with excertion, sputum. denies: shortness of breath, hemoptysis, pleuritic pain, wheezing Cardiovascular: denies: chest pain, palpitations, orthopnea, paroxysmal noc. dyspnea, edema, light headedness - Medication Medications: Active Medications Generic Name Dose Route Start Last Admin Trade Name Freq PRN Reason Stop Dose Admin Acetaminophen 650 mg 12/28/18 07:10 12/30/18 02:24 Tylenol PO 650 mg Q4H PRN Administration Headache/Fever/Mild Pain (1-3) Albuterol Sulfate 2.5 mg 12/28/18 10:30 12/30/18 11:28 Ventolin NEB 2.5 mg X5ON-DH LUZMA Administration Alprazolam 0.5 mg 12/29/18 21:00 12/29/18 23:32 Xanax PO 0.5 mg 2100 LUZMA Administration Alprazolam 0.25 mg 12/29/18 09:00 12/30/18 10:09 Xanax PO 0.25 mg QAM LUZMA Administration Amlodipine Besylate 5 mg 12/29/18 09:00 12/30/18 10:09 Norvasc PO 5 mg DAILY LUZMA Administration Aspirin 81 mg 12/29/18 18:00 12/29/18 18:09 Ecotrin PO 81 mg 1800 LUZMA Administration Coenzyme Q10 200 mg 12/29/18 09:00 12/30/18 10:08 Coenzyme Q10 PO 200 mg 0900,1800 LUZMA Administration Famotidine 20 mg 12/29/18 09:00 12/30/18 10:10 Pepcid PO 20 mg DAILY LUZMA Administration Finasteride 5 mg 12/29/18 09:00 12/30/18 10:09 Proscar PO 5 mg DAILY LUZMA Administration Guaifenesin 600 mg 12/28/18 09:00 12/30/18 10:10 Mucinex PO 600 mg Q12HR LUZMA Administration Mometasone Furoate 1 puff 12/30/18 06:30 12/30/18 07:57 Asmanex Twisthaler INH 1 puff BID-RT LUZMA Administration Prednisone 40 mg 12/30/18 08:00 12/30/18 10:09 Prednisone PO 01/02/19 08:01 40 mg QAM-WM LUZMA Administration Saccharomyces Boulardii 250 mg 12/28/18 09:00 12/30/18 10:09 Florastor PO 250 mg DAILY LUZMA Administration - Exam NAD Eye: anicteric sclera ENT: moist mucosa Neck: supple Heart: RRR Respiratory: CTAB Gastrointestinal: soft, non-tender Extremities: no edema Musculoskeletal: normal tone, normal strength Psychiatric: normal affect, normal behavior Hosp A/P (1) Acute on chronic respiratory failure with hypoxia Code(s): J96.21 - ACUTE AND CHRONIC RESPIRATORY FAILURE WITH HYPOXIA Status: Acute (2) HCAP (healthcare-associated pneumonia) Code(s): J18.9 - PNEUMONIA, UNSPECIFIED ORGANISM Status: Acute (3) COPD exacerbation Code(s): J44.1 - CHRONIC OBSTRUCTIVE PULMONARY DISEASE W (ACUTE) EXACERBATION Status: Acute (4) Anxiety Code(s): F41.9 - ANXIETY DISORDER, UNSPECIFIED Status: Chronic (5) BPH (benign prostatic hyperplasia) Code(s): N40.0 - BENIGN PROSTATIC HYPERPLASIA WITHOUT LOWER URINRY TRACT SYMP Status: Chronic (6) HLD (hyperlipidemia) Code(s): E78.5 - HYPERLIPIDEMIA, UNSPECIFIED Status: Chronic (7) HTN (hypertension) Code(s): I10 - ESSENTIAL (PRIMARY) HYPERTENSION Status: Chronic Qualifiers: Hypertension type: essential hypertension Qualified Code(s): I10 - Essential (primary) hypertension - Plan out of bed/ambulate Improving. Switched to oral antibiotics. Continue lorazepam for anxiety. Blood pressure controlled.
[2018-12-30] MEDS: Aspirin 81 mg Enteric Coated Tablet PO SCH (18:37)
[2018-12-30] MEDS: Cefdinir 300 MG CAP PO SCH (20:53)
[2018-12-30] MEDS: ALPRAZolam 0.5 MG TAB PO SCH ×2 (20:53→23:31)
[2018-12-30] MEDS ORDERED: guaiFENesin ER 600 MG TAB PO SCH (21:00)
[2018-12-31] MEDS: Albuterol Sulfate 2.5 mg/3 ml Neb NEB SCH ×4 (02:17→14:24)
[2018-12-31 06:30] VITALS: BMI 21.1
[2018-12-31] MEDS: Mometasone Furoate 120 PUFF 220 MCG INH SCH (08:03)
[2018-12-31] MEDS: Ubidecarenone 50 MG CAP PO SCH (08:54)
[2018-12-31] MEDS: Finasteride 5 MG TAB PO SCH (08:55)
[2018-12-31] MEDS: Cefdinir 300 MG CAP PO SCH (08:55)
[2018-12-31] MEDS: Saccharomyces boulardii 250 MG CAP PO SCH (08:55)
[2018-12-31] MEDS: ALPRAZolam 0.25 MG TAB PO SCH (08:55)
[2018-12-31] MEDS: predniSONE 20 MG TAB PO SCH (08:55)
[2018-12-31] MEDS: guaiFENesin ER 600 MG TAB PO SCH (08:55)
[2018-12-31] MEDS: Amlodipine 5 MG TAB PO SCH (08:55)
[2018-12-31] MEDS: Famotidine 20 MG TAB PO SCH (08:56)
[2018-12-31] MEDS ORDERED: Furosemide 20 MG TAB PO SCH (09:00)
--- NOTE | 2018-12-31 09:21 | PRG ---
DATE OF SERVICE: 12/31/2018 SUBJECTIVE: Catarino Moore is awake, alert, and responsive. He is eager to go home. OBJECTIVE: VITAL SIGNS: His blood pressure is 180/104. The bp tends to fluctuate. He has 100% on 2 L, respiratory rate 20. CHEST: Decreased breath sounds. No wheezing. CARDIAC: Normal S1 and S2. No gallops or masses. LABORATORY DATA: Blood culture is growing Shewanella algae. We did a Medline search on it, it can be a pathogen, which is obviously very rare. He is sensitive to the Omnicef and the Cipro. It is an anaerobic infection. Unfortunately, that he is allergic to Cipro, therefore he will be given Omnicef to take home. IMPRESSION: 1. Chronic obstructive pulmonary disease, respiratory failure. 2. Anaerobic gram-negative infection. 3. Hypertension. 4. Cardiomyopathy. 5. Congestive heart failure. PLAN: Omnicef 300 mg twice a day for a week. Prednisone 20 for a week, 10 for 6 days. See in the office in 2 weeks. 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 Job ID: [id number] [facility]
[2018-12-31 13:07] VITALS: BP 161/100
[2018-12-31 14:56] VITALS: TEMP 98.6
--- NOTE | 2018-12-31 19:01 | DIS ---
DATE OF ADMISSION: 12/28/2018 DATE OF DISCHARGE: 12/31/2018 PRIMARY CARE PROVIDER: Michele Pan MD DISCHARGE DIAGNOSES: 1. Enbva-dm-qmsuanm hypoxic respiratory failure. 2. Chronic obstructive pulmonary disease exacerbation. 3. Healthcare-associated pneumonia. 4. Splenic lacerations and hematomas. CONDITION OF PATIENT ON THE DAY OF DISCHARGE: Stable. I assessed Mr. Moore on the day of discharge. He denies any chest pain or shortness of breath. Vital signs are stable. S1 and S2 are heard, regular. Lungs are clear to auscultation bilaterally. CONSULTATIONS DURING THIS HOSPITALIZATION: Pulmonary and Critical Care Medicine, Dr. Cintron. General Surgery, Dr. Mae. DISCHARGE MEDICATIONS: 1. Albuterol nebulizers every 4 hours. 2. Xanax 0.25 mg in the evening and 0.5 mg at night. 3. Amlodipine 5 mg daily. 4. Aspirin 81 mg daily. 5. Famotidine 20 mg daily. 6. Finasteride 5 mg daily. 7. Lasix 20 mg daily. 8. Mucinex 1 tablet 2 times a day. 9. Lisinopril 20 mg 2 times a day. 10. Asmanex inhaler 2 times a day. 11. Potassium chloride 20 mEq daily. 12. Coenzyme Q10, 200 mg daily. 13. Coreg 25 mg two times a day. 14. Omnicef 300 mg two times a day for one week. 15. Prednisone 20 mg daily for one week, then 10 mg daily for 6 days. 16. Clonidine as needed. 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 HOSPITAL COURSE: Mr. Moore is a pleasant 83-year-old gentleman, who was admitted to [facility] for [id number] hypoxic respiratory failure secondary to chronic obstructive pulmonary disease exacerbation and pneumonia. He was treated with antibiotics and steroids as well as bronchodilators. He improved clinically. He has been cleared for discharge by Pulmonology Service. The patient had a CT scan of the chest during this hospitalization. He was found to have emphysematous changes in the lung rtacey. He also had a 1 cm nodule versus scarring in the left upper lobe, small right pleural effusion, bibasilar infiltrates, and hematomas and lacerations in the spleen. He was seen by Surgical Service, who felt that the splenic findings were chronic and they did not need surgical intervention. He is being discharged home in a stable condition. LABORATORY DATA: On December 29, Mr. Moore had sodium of 132, potassium 3.5 and creatinine 0.96. On December 30, he had white count of 22,400, hemoglobin 12.1, and platelet count 392,000. BNP during this hospitalization was 919.3. Many thanks for allowing me to participate in your patient's care. Please feel free to contact me with any questions or concerns. DISCHARGE DESTINATION: Home. TIME SPENT: Total amount of time spent coordinating this discharge: 32 minutes. Job ID: [id number]
[2019-01-01] MEDS ORDERED: predniSONE 20 MG TAB PO SCH (08:00)
--- NOTE | 2019-01-02 10:03 | PQF ---
[employer] Crystal Reports Winform Viewer MAULIKJOYCE BeckerJMI YEE [id number] [facility]- B04 [id number] CLINICAL DOCUMENTATION CLARIFICATION FORM: POST DISCHARGE Addendum to original discharge summary date: ____ Late entry note date: 01/07/2019 DATE:01-02-2019 ATTN:Jim Mercer Please exercise your independent, professional judgment in responding to the clarification form. Clinical indicators are provided on the bottom of this form for your review Can you please specify whether Severe Sepsis is ruled in or ruled out during this encounter? Please check appropriate box(s) to clarify if the following diagnosis has been ruled in or ruled out: Severe Sepsis [ ] Ruled in diagnosis [ ] Continue to treat [ ] Resolved [ ] Ruled out diagnosis [ ] Cannot rule out diagnosis [ s ] Other diagnosis please specify: ____Sepsis [ ] Unable to determine For continuity of documentation, please document condition throughout progress notes and discharge summary. Thank You. CLINICAL INDICATORS: ED 12/28 pg5 Primary Diagnosis: hypoxic respiratory failure, CAP, Sepsis H&P 12/[address] Nevarez Chief complaint: Shortness of breath H&P 12/[address] Nevarez Acute on chronic respiratory failure secondary to COPD exacerbation H&P 12/[address] Nevarez tachyarrythmia H&P 12/[address] Nevarez Sepsis with acute organ dysfunction secondary to Pneumonia PN 12/[address] Marques Healtcare associated Pneumonia, COPD Exacerbation PN 12/[address] Draper white count 20,000. Blood culture growing an organism Shewanella algae Laboratory-WBC=29.3H, 21.7, 22.4 Lactic acid=1.8 Vital signs ED 12/28 XM=620/28, 132/71 Vkdy=605.8, 101.3, 102.2 Pulse=92, 91, 91 Respi=22, 24, 34 RISK FACTOR: H&P 12/28 Dr. Nevarez-Pneumonia H&P 12/28 Dr. Nevarez- 83 years old male TREATMENTS: H&P 12/28 Dr. Nevarez- BIPAP Microbiology 12/28- Blood culture JUL 19- IV fluids JUL 19- Vancomycin IV 1 gm JUL 19-Meropenem 1gm IV JUL 19- Maxipime 1 gm IV (This form is maintained as a part of the permanent medical record) 2014 [employer]. All Rights Reserved [email or web address] [not provided] MTDD
--- NOTE | 2019-01-07 12:11 | PDOC.EVN ---
Event Note - Event Note Event Note: Late Entry Note: patient's discharge diagnoses also include: Sepsis, hyponatremia.
== END 2018-12-31 16:22 | disposition home or self-care (01) | DRG 871 ==
LOC: ERS 02:18 → IMCU/EMU 04:55
PROVIDERS: ADMIT Internal Medicine; ATTEND Internal Medicine
PROC: 5A09457 Assistance with Respiratory Ventilation, 24-96 Consecutive Hours, Continuous Positive Airway Pressure (ICD-10-PCS; principal; 2018-12-28)
DX: A41.9 Sepsis, unspecified organism (principal); J18.9 Pneumonia, unspecified organism; J96.21 Acute and chronic respiratory failure with hypoxia; I50.32 Chronic diastolic (congestive) heart failure; J44.1 Chronic obstructive pulmonary disease with (acute) exacerbation; I13.0 Hypertensive heart and chronic kidney disease with heart failure and stage 1 through stage 4 chronic kidney disease, or unspecified chronic kidney disease; E87.1 Hypo-osmolality and hyponatremia; J44.0 Chronic obstructive pulmonary disease with (acute) lower respiratory infection; I42.9 Cardiomyopathy, unspecified; S36.039A Unspecified laceration of spleen, initial encounter; R04.2 Hemoptysis; N18.2 Chronic kidney disease, stage 2 (mild); D63.1 Anemia in chronic kidney disease; N40.0 Benign prostatic hyperplasia without lower urinary tract symptoms; E78.5 Hyperlipidemia, unspecified; F41.9 Anxiety disorder, unspecified; Y95 Nosocomial condition; I25.10 Atherosclerotic heart disease of native coronary artery without angina pectoris; Z79.52 Long term (current) use of systemic steroids; Z99.81 Dependence on supplemental oxygen; Z95.1 Presence of aortocoronary bypass graft; Z90.49 Acquired absence of other specified parts of digestive tract; Z88.1 Allergy status to other antibiotic agents; Z88.2 Allergy status to sulfonamides; Z88.8 Allergy status to other drugs, medicaments and biological substances; Z87.891 Personal history of nicotine dependence; Z79.51 Long term (current) use of inhaled steroids; I48.91 Unspecified atrial fibrillation
CPT/HCPCS: 36415; 51702; 71045; 71260; 80048; 80053; 81003; 82805; 83605; 83735; 83880; 84484; 85025; 87040; 87077; 87149; 93005; 94640; 94660; 96361; 96365; 96368; 96374; 96375; J0131; J0692; J1650; J1940; J2060; J2185; J2920; J2930; J3370; J3490; J7512; J7611

== ENCOUNTER 2019-03-14 13:19 | Inpatient (IN) | payer MEDICARE ==
[2019-03-14] MEDS ORDERED: Dexamethasone 10 MG/ML VIAL ONE (14:00)
[2019-03-14] MEDS ORDERED: Magnesium 2 GM/50 ML BAG (IN WATER) ONE (14:00)
[2019-03-14] MEDS ORDERED: Albuterol Sulfate 2.5 mg/0.5 ml Neb ONE ×2 (14:06)
[2019-03-14 14:22] LABS: ALV-art Gradient 164.675 (0-20); Actual Bicarbonate (HCO3a) 25.2 mEq/L (22-28); Analyzer IN Cardio ER; Base Excess (BEa) 1.2 mEq/L (-2.0 to +3.0); CO2 Tension 37.7 mmHg (35.0-45.0); Calcium, Ionized 1.17 mmol/L (1.12-1.30); Carboxyhemoglobin (COHb) 0.8 gm% (0.0-3.0); Hemoglobin (Hb) 12.4 g/dL (14.0-18.0); O2 Tension (PaO2) 73.4 mmHg (> 60.0); Potassium - ABG Lab 3.07 mmol/L (3.70-5.30); Puncture Site LRA; pH, Arterial 7.44 (7.35-7.45)
[2019-03-14 14:28] LABS: Hemoglobin 12.7 g/dL (14.0-18.0); Mean Corpuscular HGB CONC 32.7 g/dL (32.0-36.0); Mean Corpuscular Hemoglobin 26.5 pg (27.0-31.0); Mean Corpuscular Volume 81.1 fL (78.0-98.0); Mean Platelet Volume 7.6 fL (7.4-10.4); Platelet Count 313 thou/uL (130-400); RBC Distribution Width 15.1 % (11.5-14.5); Red Blood Cell (RBC) Count 4.78 mill/uL (4.70-6.10); White Blood Cell (WBC) Count 26.9 thou/uL (4.8-10.8)
[2019-03-14] MEDS ORDERED: cefTRIAXone\\ROCEPHIN 2 GM VIAL ONE (14:38)
[2019-03-14 14:40] LABS: Anisocytosis SLIGHT = 6-15 cells (100X) (0-5/hpf); Band 10 % (5-11); Hypochromia SLIGHT = 6-15 cells (100X) (0-5/hpf); Lymphocytes 6 % (21-51); MDiff Complete? YES; Monocytes 9 % (0-10); Neutrophil 74 % (42-75); Ovalocytes SLIGHT = 2-5 cells (100X) (0-1/hpf); Platelet Morphology Comment Appears Adequate; Polychromasia SLIGHT = 2-3 cells (100X) (0-2/hpf)
[2019-03-14 14:44] LABS: ALT (SGPT) Less than 7 U/L (8-55); AST (SGOT) 17 U/L (5-34); Albumin 4.3 g/dL (3.4-4.8); Alkaline Phosphatase 107 U/L (40-110); Anion Gap 18 mmol/L (10-20); BUN (Urea Nitrogen) 15 mg/dL (8.4-25.7); Bilirubin, Total 1.6 mg/dL (0.2-1.2); CK (CPK) 133 U/L (30-200); Calc. Creatinine Clearance 0 mL/min (70-130); Calcium 9.5 mg/dL (7.8-10.44); Carbon Dioxide 25 mmol/L (23-31); Chloride 95 mmol/L (98-107); Estimated GFR-MDRD 76; Globulin 2.7 g/dL (2.4-3.5); Glucose 102 mg/dL (83-110); Lipase 13 U/L (8-78); Potassium 3.7 mmol/L (3.5-5.1); Sodium 134 mmol/L (136-145)
[2019-03-14 14:52] LABS: CKMB 3.8 ng/mL (0-6.6)
[2019-03-14] MEDS ORDERED: Azithromycin 500 MG VIAL ONE (15:14)
--- NOTE | 2019-03-14 15:57 | RAD ---
PORTABLE CHEST: DATE: 03/14/2019. PROVIDED CLINICAL HISTORY: Dyspnea. FINDINGS: Comparison 12/28/2018. The cardiac and mediastinal silhouette is grossly similar. There is obscurati on of the left heart margin that may reflect lingular infiltrate. Emphysematous changes are again se en. There is no evidence for pneumothorax or large effusion. IMPRESSION: Possible lingular infiltrate. Correlate with concerns for pneumonia. Consider lateral view. POS: TPC
[2019-03-14 16:19] LABS: Bilirubin Negative (Negative); Blood, Urine Negative (Negative); Clarity Clear (Clear); Glucose, Urine (Dipstick) Normal (Negative); Leukocyte Negative Leu/uL (Negative); Nitrite Negative (Negative); Protein, Urine (Dipstick) Negative (Neg-Trace); Urobilinogen Normal mg/dL (Less than 2)
[2019-03-14] MEDS ORDERED: Calcium Carbonate 500 MG ChewTAB PO PRN (16:39)
[2019-03-14] MEDS ORDERED: Ondansetron PF 4 MG/2 ML Vial IVP PRN (16:39)
[2019-03-14] MEDS ORDERED: Acetaminophen 650 MG Suppository PR PRN (16:39)
[2019-03-14] MEDS ORDERED: HYDROcodone/Acetaminophen 7.5/325 mg Tablet PO PRN (16:39)
[2019-03-14] MEDS ORDERED: Ondansetron ODT 4 MG TAB PO PRN (16:39)
[2019-03-14] MEDS ORDERED: Senokot S 8.6-50 MG TAB PO PRN (16:39)
[2019-03-14] MEDS ORDERED: Melatonin 3 MG TAB PO PRN (16:42)
[2019-03-14] MEDS ORDERED: diphenhydrAMINE 25 MG CAP PO PRN (16:42)
[2019-03-14] MEDS ORDERED: Docusate 100 MG CAP PO PRN (16:42)
[2019-03-14] MEDS ORDERED: Labetalol HCl 100 MG/20 ML VIAL SLOW IVP PRN (16:42)
[2019-03-14] MEDS ORDERED: Benzonatate 100 MG CAP PO PRN (16:42)
[2019-03-14] MEDS ORDERED: Albuterol Sulfate 1.25 MG/3 ML NEB NEB PRN (16:45)
--- NOTE | 2019-03-14 17:47 | PDOC.HHP ---
Hospitalist HPI - History of Present Illness Shortness of breath History of Present Illness: 83 year old with PMHx of COPD, home O2 dependant 2-3L NC, CAD, CABG, CHF, HTN, and HLD who presents with worsening shortness of breath. Patient for the past several days has been feeling worse with cough with productive sputum and subjective fever and chills. EMS was called for worsening shortness of breath and the patient required BIPAP initially to maintain O2 saturation. I find the patient in the ED he is breathing well on low flow nasal canula. Patient family at bedside able to aid in Hx. Patient is a patient of Dr Draper who sees him regularly in the clinic. Patient admitted to [facility], started on pulmonary specific antibiotics, IV steroids, Duonebs, and PRN BIPAP. Patient with WBC 26K , tachypnea, and tachycardia diagnosed with sepsis on admission. Mild elevation in troponin. BNP not significantly elevated from prior admission does not appear fluid overloaded. Hospitalist ROS - Review of Systems All other systems reviewed; all pertinent +/- noted in HPI/Subj Hospitalist History - Past Medical History Source: patient, family Cardiac: reports: CAD, CHF, HTN, [place], Hyperlipidemia Pulmonary: reports: bronchitis, COPD, heart attack, high cholesterol, hypertension, lung disease Gastrointestinal: reports: GERD Psych: reports: Anxiety, Depression Renal/: reports: Benign prostatic enlarg. - Family History Family History: reports: hyperlipidemia, hypertension - Social History Smoking Status: Unknown if ever smoked Alcohol: reports: None Drugs: reports: none Activity level: uses cane/walker - Exam General Appearance: ill appearing Eye: PERRL, anicteric sclera ENT: normocephalic atraumatic, moist mucosa Neck: supple, symmetric, no lymphadenopathy Heart: no murmur, no gallops, no rubs Respiratory: no rales, normal chest expansion, rhonchi, tachypneic, wheezes Gastrointestinal: soft, non-tender, non-distended, no guarding, no rigidity Extremities: no edema Skin: no lesions, no rashes Neurological: cranial nerve grossly intact, no focal deficits Musculoskeletal: generalized weakness Psychiatric: normal affect, A&O x 3 Hospitalist Results - Labs Result Diagrams: 03/14/19 13:56 03/14/19 13:56 Lab results: WBC 26.9 thou/uL (4.8-10.8) H 03/14/19 13:56 Hgb 12.7 g/dL (14.0-18.0) L 03/14/19 13:56 Hct 38.8 % (42.0-52.0) L 03/14/19 13:56 MCV 81.1 fL (78.0-98.0) 03/14/19 13:56 Plt Count 313 thou/uL (130-400) 03/14/19 13:56 Band Neuts % (Manual) 10 % (5-11) 03/14/19 13:56 ABG pH 7.44 (7.35-7.45) 03/14/19 14:18 ABG pCO2 37.7 mmHg (35.0-45.0) 03/14/19 14:18 ABG pO2 73.4 mmHg (> 60.0) H 03/14/19 14:18 Sodium 134 mmol/L (136-145) L 03/14/19 13:56 Potassium 3.7 mmol/L (3.5-5.1) 03/14/19 13:56 Chloride 95 mmol/L (98-107) L 03/14/19 13:56 Carbon Dioxide 25 mmol/L (23-31) 03/14/19 13:56 BUN 15 mg/dL (8.4-25.7) 03/14/19 13:56 Creatinine 0.95 mg/dL (0.7-1.3) 03/14/19 13:56 Glucose 102 mg/dL (83-110) 03/14/19 13:56 Lactic Acid 2.9 mmol/L (0.5-2.2) H 03/14/19 13:56 Calcium 9.5 mg/dL (7.8-10.44) 03/14/19 13:56 Total Bilirubin 1.6 mg/dL (0.2-1.2) H 03/14/19 13:56 AST 17 U/L (5-34) 03/14/19 13:56 ALT Less than 7 U/L (8-55) L 03/14/19 13:56 Alkaline Phosphatase 107 U/L (40-110) 03/14/19 13:56 Creatine Kinase 133 U/L (30-200) 03/14/19 13:56 CK-MB (CK-2) 3.8 ng/mL (0-6.6) 03/14/19 13:56 Troponin I 0.029 ng/mL (< 0.028) H 03/14/19 13:56 B-Natriuretic Peptide 998.7 pg/mL (0-100) H 03/14/19 13:56 Serum Total Protein 7.0 g/dL (5.8-8.1) 03/14/19 13:56 Albumin 4.3 g/dL (3.4-4.8) 03/14/19 13:56 Lipase 13 U/L (8-78) 03/14/19 13:56 Urine Ketones 10 mg/dL (Negative) A 03/14/19 16:02 Urine Blood Negative (Negative) 03/14/19 16:02 Urine Nitrite Negative (Negative) 03/14/19 16:02 Ur Leukocyte Esterase Negative Junie/uL (Negative) 03/14/19 16:02 - Radiology Interpretation Chest x-ray Status: image reviewed by nj Hospitalist H&P A/P - Problem (1) Sepsis Code(s): A41.9 - SEPSIS, UNSPECIFIED ORGANISM Status: Acute (2) Community acquired bacterial pneumonia Code(s): J15.9 - UNSPECIFIED BACTERIAL PNEUMONIA Status: Acute (3) COPD exacerbation Code(s): J44.1 - CHRONIC OBSTRUCTIVE PULMONARY DISEASE W (ACUTE) EXACERBATION Status: Acute (4) Acute on chronic diastolic heart failure Code(s): I50.33 - ACUTE ON CHRONIC DIASTOLIC (CONGESTIVE) HEART FAILURE Status : Acute (5) Acute on chronic respiratory failure with hypoxia Code(s): J96.21 - ACUTE AND CHRONIC RESPIRATORY FAILURE WITH HYPOXIA Status: Acute (6) Anxiety Code(s): F41.9 - ANXIETY DISORDER, UNSPECIFIED Status: Chronic (7) BPH (benign prostatic hyperplasia) Code(s): N40.0 - BENIGN PROSTATIC HYPERPLASIA WITHOUT LOWER URINRY TRACT SYMP Status: Chronic (8) HLD (hyperlipidemia) Code(s): E78.5 - HYPERLIPIDEMIA, UNSPECIFIED Status: Chronic (9) HTN (hypertension) Code(s): I10 - ESSENTIAL (PRIMARY) HYPERTENSION Status: Chronic Qualifiers: Hypertension type: essential hypertension Qualified Code(s): I10 - Essential (primary) hypertension (10) S/P CABG x 5 Code(s): Z95.1 - PRESENCE OF AORTOCORONARY BYPASS GRAFT Status: Chronic - Plan Plan: Plan: Admit to IMCU Pulmonology consultation, recommendation appreciated BIPAP PRN Pulm specific ABX IV steroids Inhalled albuterol scheduled and PRN, allergy to Ipratropium Trend troponin No chest pain or palpitations Resume cardiomyopathy regimen Continue other home meds as able Fluid restrictions for CHF BP control Blood sugar control
[2019-03-14 18:31] VITALS: BMI 21.7
[2019-03-14] MEDS: Albuterol Sulfate 1.25 MG/3 ML NEB NEB SCH (19:23)
[2019-03-14] MEDS: Mometasone Furoate 120 PUFF 220 MCG INH SCH (19:26)
[2019-03-14] MEDS: Famotidine 20 MG TAB PO SCH (20:38)
[2019-03-14] MEDS: Lisinopril 20 MG TAB PO SCH (20:38)
[2019-03-14] MEDS: Heparin 5,000 UNITS/ML VIAL SC SCH (20:39)
[2019-03-14] MEDS: Aspirin 81 mg Enteric Coated Tablet PO SCH (20:39)
[2019-03-14] MEDS: Potassium Chloride 20 MEQ TAB PO SCH (20:39)
[2019-03-14] MEDS: Carvedilol 25 MG TAB PO SCH (20:58)
[2019-03-14 21:53] LABS: Troponin I Less than 0.010 ng/mL (< 0.028)
[2019-03-14] MEDS ORDERED: Albuterol Sulfate 1.25 MG/3 ML NEB ONE (22:05)
[2019-03-14] MEDS: ALPRAZolam 0.5 MG TAB PO SCH (22:40)
[2019-03-14] MEDS: Furosemide 20 MG TAB PO SCH (22:40)
[2019-03-14] MEDS: methylPREDNISolone Sod Succ 40 MG VIAL IVP SCH (22:41)
[2019-03-14] MEDS: guaiFENesin/DM ER PO SCH (22:41)
[2019-03-15] MEDS: HYDROcodone/Acetaminophen 5/325 mg Tablet PO PRN (00:06)
[2019-03-15 02:37] LABS: Troponin I Less than 0.010 ng/mL (< 0.028)
[2019-03-15 04:31] LABS: #Lymphocytes 0.4 thou/uL (1.20-3.40); #Monocytes 0.5 thou/uL (0.11-0.59); #Neutrophils 18.7 thou/uL (1.40-6.50); %Eosinophils 0.1 % (0.0-10.0); %Lymphocytes 2.2 % (21.0-51.0); %Monocytes 2.4 % (0.0-10.0); %Neutrophils 95.3 % (42.0-75.0); Hemoglobin 11.1 g/dL (14.0-18.0); Mean Corpuscular HGB CONC 32.2 g/dL (32.0-36.0); Mean Corpuscular Volume 80.6 fL (78.0-98.0); Mean Platelet Volume 7.6 fL (7.4-10.4); Platelet Count 287 thou/uL (130-400); Red Blood Cell (RBC) Count 4.27 mill/uL (4.70-6.10); White Blood Cell (WBC) Count 19.7 thou/uL (4.8-10.8)
[2019-03-15 04:52] LABS: Anion Gap 14 mmol/L (10-20); BUN (Urea Nitrogen) 19 mg/dL (8.4-25.7); Calc. Creatinine Clearance 45 mL/min (70-130); Calcium 9.1 mg/dL (7.8-10.44); Carbon Dioxide 26 mmol/L (23-31); Chloride 97 mmol/L (98-107); Estimated GFR-MDRD 66; Glucose 202 mg/dL (83-110); Potassium 3.8 mmol/L (3.5-5.1); Sodium 133 mmol/L (136-145)
[2019-03-15] MEDS: methylPREDNISolone Sod Succ 40 MG VIAL IVP SCH ×3 (06:00→21:04)
[2019-03-15] MEDS: Albuterol Sulfate 1.25 MG/3 ML NEB NEB SCH ×4 (08:01→19:15)
[2019-03-15] MEDS: Mometasone Furoate 120 PUFF 220 MCG INH SCH ×2 (08:02→19:47)
[2019-03-15] MEDS ORDERED: FLU VACC TS2019-20(65YR UP)/PF 180 MCG/0.5 ML SYRINGE IM ONE (09:00)
[2019-03-15] MEDS: Heparin 5,000 UNITS/ML VIAL SC SCH ×3 (09:14→21:04)
[2019-03-15] MEDS: Lisinopril 20 MG TAB PO SCH ×2 (09:14→17:54)
[2019-03-15] MEDS: Amlodipine 5 MG TAB PO SCH (09:15)
[2019-03-15] MEDS: Carvedilol 25 MG TAB PO SCH ×2 (09:15→17:54)
[2019-03-15] MEDS: Finasteride 5 MG TAB PO SCH (09:15)
[2019-03-15] MEDS: Furosemide 20 MG TAB PO SCH ×2 (09:15→17:55)
[2019-03-15] MEDS: Famotidine 20 MG TAB PO SCH ×2 (09:15→21:03)
[2019-03-15] MEDS: ALPRAZolam 0.25 MG TAB PO PRN (09:20)
[2019-03-15] MEDS: guaiFENesin/DM ER PO SCH ×2 (09:27→17:53)
--- NOTE | 2019-03-15 11:23 | CON ---
DATE OF CONSULTATION: 03/15/2019 This encompassed 50 minutes time, of that time, greater than 50% was spent with the patient and/or the patient's unit in the hospital. REASON FOR CONSULTATION: COPD exacerbation. HISTORY OF PRESENT ILLNESS: The patient is an 83-year-old male who is a patient of Dr. Draper. He comes in with a week's history of increasing shortness of breath. It looks like he was on BiPAP for a short time. He has since improved. He says since he got a dose of antibiotics, he is back to normal, and he wants to go home. PAST MEDICAL HISTORY: 1. Severe COPD, requiring home oxygen. 2. Coronary artery disease. 3. Congestive heart failure. 4. Hypertension. 5. Myocardial infarction. 6. Hyperlipidemia. 7. Gastroesophageal reflux. 8. Anxiety. 9. Depression. PAST SURGICAL HISTORY: 1. Coronary artery bypass grafting surgery. 2. Sternal wound dehiscence repair. 3. Cataract surgery. 4. Herniorrhaphy. 5. Transurethral resection of prostate x2. SOCIAL HISTORY: Greater than 200 pack-year history of smoking. He quit 16 years ago. He drinks fireball whiskey every night before he goes to bed. Does not use any illicit drugs. FAMILY MEDICAL ALLERGY: Unremarkable. ALLERGIES: SULFA, CIPRO, HYDRALAZINE, IPRATROPIUM, LEVOFLOXACIN, TERAZOSIN, AND AUGMENTIN. MEDICATIONS: Current inpatient medications and outpatient medications are listed in [employer]. I reviewed all of these. REVIEW OF SYSTEMS: Twelve-point review of systems is otherwise negative. PHYSICAL EXAMINATION: VITAL SIGNS: Temperature 97.8, pulse 80, blood pressure 106/61, and O2 saturation 99% GENERAL: He is awake, alert, sitting in chair, joking around in no distress. HEENT: Pupils are reactive. Sclerae anicteric. Oropharynx is clear. NECK: No adenopathy JVD, thyromegaly, or bruits. LUNGS: Clear without wheezing rhonchi at the current time. CARDIOVASCULAR: S1 and S2 regular without murmur. ABDOMEN: Soft, nontender to palpation. EXTREMITIES: No clubbing or cyanosis. Trace ankle edema. NEUROLOGIC: Grossly intact throughout. LABORATORY DATA: White blood cell count 19.7, hematocrit 34.4, and platelet count 287. The pH 7.44, pCO2 of 37, and pO2 of 73. Sodium 133, potassium 3.8, chloride 97, CO2 of 26, BUN 19, creatinine 1.1, and glucose 202. IMAGING STUDIES: His chest x-ray shows chronic interstitial changes. Left heart borders were somewhat blurred. It is hard to tell if that is old or possibly something new down there. ASSESSMENT: 1. Chronic obstructive pulmonary disease with exacerbation. 2. Question of concurrent pneumonia. 3. History of congestive heart failure - does not appear to be exacerbated at this time. PLAN: Agree with antibiotics, nebulization therapy, diuresis. From my standpoint, he can be transferred out to the medical floor.. Job ID: [id number]
--- NOTE | 2019-03-15 13:45 | PDOC.HOSPP ---
- Subjective Subjective: Seen and examined. Patient breathing much more easily. Patient tells me he's feeling 100% better from when he came in. WBC count down trending. Troponins normalized. Overall improving on maximal medical therapy. - Objective Vital Signs & Weight: Vital Signs (12 hours) Temp Pulse Pulse Pulse Pulse Resp BP 03/15/19 10:48 97.8 F 03/15/19 10:42 72 23 H 03/15/19 09:18 80 91 74 03/15/19 09:15 91 03/15/19 09:14 138/75 03/15/19 08:01 91 19 03/15/19 08:00 03/15/19 07:11 97.6 F 03/15/19 03:15 99.0 F BP BP Pulse Ox Pulse Ox Pulse Ox Pulse Ox 03/15/19 10:48 03/15/19 10:42 97 03/15/19 09:18 124/60 159/87 H 98 97 97 03/15/19 09:15 03/15/19 09:14 03/15/19 08:01 94 L 03/15/19 08:00 96 03/15/19 07:11 03/15/19 03:15 Weight Weight 130 lb 8.994 oz Most Recent Monitor Data Heart Rate from ECG 69 NIBP 114/55 NIBP BP-Mean 74 Respiration from ECG 21 SpO2 99 I&O: 03/14/19 03/15/19 03/16/19 06:59 06:59 05:59 Intake Total 1080 Output Total 990 Balance 90 Result Diagrams: 03/15/19 03:58 03/15/19 03:58 Radiology Reviewed by me: Yes Hospitalist ROS - Review of Systems All other systems reviewed; all pertinent +/- noted in HPI/Subj - Medication Medications: Active Medications Generic Name Dose Route Start Last Admin Trade Name Freq PRN Reason Stop Dose Admin Hydrocodone Bitart/Acetaminophen 1 tab 03/14/19 16:39 03/15/19 00:06 [place] 5/325 PO 1 tab Q4H PRN Administration Moderate Pain (4-6) Albuterol Sulfate 1.25 mg 03/14/19 19:00 03/15/19 10:42 Albuterol Sulfate NEB 1.25 mg [id number] LUZMA Administration Alprazolam 0.5 mg 03/14/19 21:00 03/14/19 22:40 Xanax PO 0.5 mg 2100 LUZMA Administration Alprazolam 0.25 mg 03/15/19 09:00 03/15/19 09:20 Xanax PO 0.25 mg BID PRN Administration Anxiety Amlodipine Besylate 5 mg 03/15/19 09:00 03/15/19 09:15 Norvasc PO 5 mg DAILY LUZMA Administration Aspirin 81 mg 03/14/19 18:00 03/14/19 20:39 Ecotrin PO 81 mg 1800 LUZMA Administration Carvedilol 25 mg 03/14/19 17:00 03/15/19 09:15 Coreg PO 25 mg BID-WM LUZMA Administration Diphenhydramine HCl 25 mg 03/14/19 16:42 03/15/19 01:41 Benadryl PO 25 mg Q6H PRN Administration Itching & Insomnia Famotidine 20 mg 03/14/19 21:00 03/15/19 09:15 Pepcid PO 20 mg BID LUZMA Administration Finasteride 5 mg 03/15/19 09:00 03/15/19 09:15 Proscar PO 5 mg DAILY LUZMA Administration Furosemide 20 mg 03/14/19 18:00 03/15/19 09:15 Lasix PO 20 mg 0800,1800 LUZMA Administration Guaifenesin/Dextromethorphan 2 tab 03/14/19 18:00 03/15/19 09:27 Mucinex Dm PO 2 tab 0900,1800 LUZMA Administration Heparin Sodium (Porcine) 5,000 units 03/14/19 21:00 03/15/19 09:14 Heparin SC 5,000 units TID LUZMA Administration Lisinopril 20 mg 03/14/19 18:00 03/15/19 09:14 Zestril PO 20 mg 0900,1800 LUZMA Administration Methylprednisolone Sodium Succinate 20 mg 03/14/19 22:00 03/15/19 06:00 Solu-Medrol IVP 20 mg Q8HR LUZMA Administration Mometasone Furoate 1 puff 03/14/19 18:30 03/15/19 08:02 Asmanex Twisthaler INH 1 inh BID-RT LUZMA Administration Potassium Chloride 20 meq 03/14/19 18:00 03/14/19 20:39 K-Dur PO 20 meq 1800 LUZMA Administration - Exam General Appearance: NAD, awake alert Eye: PERRL ENT: normocephalic atraumatic, moist mucosa Neck: supple, symmetric, no lymphadenopathy Heart: no murmur, no gallops, no rubs Respiratory: no rales, normal chest expansion, no tachypnea, rhonchi, wheezes ( improving) Gastrointestinal: soft, non-tender, non-distended, no guarding, no rigidity Extremities: no edema Skin: no lesions, no rashes Neurological: cranial nerve grossly intact, no focal deficits Musculoskeletal: generalized weakness Psychiatric: normal affect, A&O x 3 Hosp A/P (1) Sepsis Code(s): A41.9 - SEPSIS, UNSPECIFIED ORGANISM Status: Acute (2) Community acquired bacterial pneumonia Code(s): J15.9 - UNSPECIFIED BACTERIAL PNEUMONIA Status: Acute (3) COPD exacerbation Code(s): J44.1 - CHRONIC OBSTRUCTIVE PULMONARY DISEASE W (ACUTE) EXACERBATION Status: Acute (4) Acute on chronic diastolic heart failure Code(s): I50.33 - ACUTE ON CHRONIC DIASTOLIC (CONGESTIVE) HEART FAILURE Status : Chronic (5) Acute on chronic respiratory failure with hypoxia Code(s): J96.21 - ACUTE AND CHRONIC RESPIRATORY FAILURE WITH HYPOXIA Status: Acute (6) Anxiety Code(s): F41.9 - ANXIETY DISORDER, UNSPECIFIED Status: Chronic (7) BPH (benign prostatic hyperplasia) Code(s): N40.0 - BENIGN PROSTATIC HYPERPLASIA WITHOUT LOWER URINRY TRACT SYMP Status: Chronic (8) HLD (hyperlipidemia) Code(s): E78.5 - HYPERLIPIDEMIA, UNSPECIFIED Status: Chronic (9) HTN (hypertension) Code(s): I10 - ESSENTIAL (PRIMARY) HYPERTENSION Status: Chronic Qualifiers: Hypertension type: essential hypertension Qualified Code(s): I10 - Essential (primary) hypertension (10) S/P CABG x 5 Code(s): Z95.1 - PRESENCE OF AORTOCORONARY BYPASS GRAFT Status: Chronic - Plan Plan: IMCU, stable for med/ tel pulmonology consultation, recommendations appreciated BiPAP QHS pulmonary specific antibiotics IV steroids inhaled albuterol scheduled and PRN, allergy ipratropium troponins normalize no chest pain or palpitations resume cardiomyopathy regimen continue other home medications as able fluid restrictions for CHF BP control blood sugar control
[2019-03-15] MEDS ORDERED: cefTRIAXone\\ROCEPHIN 2 GM in Sodium Chloride 0.9% 100 ML IVPB SCH (15:00)
[2019-03-15] MEDS ORDERED: ALPRAZolam 0.25 MG TAB PO SCH (16:00)
[2019-03-15] MEDS: Aspirin 81 mg Enteric Coated Tablet PO SCH (17:52)
[2019-03-15] MEDS: Potassium Chloride 20 MEQ TAB PO SCH (17:52)
[2019-03-15] MEDS: ALPRAZolam 0.5 MG TAB PO SCH (21:03)
[2019-03-16] MEDS: HYDROcodone/Acetaminophen 5/325 mg Tablet PO PRN (01:55)
[2019-03-16] MEDS: methylPREDNISolone Sod Succ 40 MG VIAL IVP SCH (06:06)
[2019-03-16] MEDS: Mometasone Furoate 120 PUFF 220 MCG INH SCH (07:28)
[2019-03-16] MEDS: Albuterol Sulfate 1.25 MG/3 ML NEB NEB SCH ×2 (07:28→10:47)
[2019-03-16] MEDS: guaiFENesin/DM ER PO SCH (08:11)
[2019-03-16] MEDS: Lisinopril 20 MG TAB PO SCH (08:11)
[2019-03-16] MEDS: Famotidine 20 MG TAB PO SCH (08:11)
[2019-03-16] MEDS: Amlodipine 5 MG TAB PO SCH (08:12)
[2019-03-16] MEDS: Carvedilol 25 MG TAB PO SCH (08:12)
[2019-03-16] MEDS: Furosemide 20 MG TAB PO SCH (08:12)
[2019-03-16] MEDS: Finasteride 5 MG TAB PO SCH (08:12)
[2019-03-16] MEDS: ALPRAZolam 0.25 MG TAB PO PRN (08:13)
[2019-03-16] MEDS: Heparin 5,000 UNITS/ML VIAL SC SCH (08:14)
[2019-03-16 08:47] LABS: Hemoglobin 12.3 g/dL (14.0-18.0); Mean Corpuscular HGB CONC 31.7 g/dL (32.0-36.0); Mean Corpuscular Hemoglobin 26.1 pg (27.0-31.0); Mean Corpuscular Volume 82.4 fL (78.0-98.0); Mean Platelet Volume 7.8 fL (7.4-10.4); Platelet Count 364 thou/uL (130-400); RBC Distribution Width 15.3 % (11.5-14.5)
[2019-03-16 09:20] LABS: Anion Gap 17 mmol/L (10-20); BUN (Urea Nitrogen) 36 mg/dL (8.4-25.7); Calc. Creatinine Clearance 33 mL/min (70-130); Calcium 9.4 mg/dL (7.8-10.44); Carbon Dioxide 18 mmol/L (23-31); Chloride 99 mmol/L (98-107); Estimated GFR-MDRD 45; Glucose 194 mg/dL (83-110); Potassium 4.4 mmol/L (3.5-5.1); Sodium 130 mmol/L (136-145)
[2019-03-16 09:43] LABS: MDiff Complete? YES
[2019-03-16 09:44] LABS: Lymphocytes 1 % (21-51); Monocytes 1 % (0-10); Neutrophil 98 % (42-75)
--- NOTE | 2019-03-16 11:20 | PRG ---
DATE OF SERVICE: 03/16/2019 SUBJECTIVE: The patient is doing well, wants to go home. OBJECTIVE: VITAL SIGNS: Temperature 98.0, pulse 83, respirations 18, O2 saturation 93%. HEENT: Unremarkable. NECK: No adenopathy or JVD. CHEST: Fairly clear anteriorly. CARDIAC: S1 and S2. Regular. ABDOMEN: Soft. EXTREMITIES: No edema. LABORATORY DATA: White blood cell count 23, hematocrit 38.7, and platelet count 364. Sodium 130, potassium 4.4, chloride 99, CO2 of 18, BUN 36, creatinine 1.5, glucose 194. ASSESSMENT: 1. Chronic obstructive pulmonary disease with exacerbation. 2. Question of concurrent pneumonia. PLAN: He looks stable to go home. I would send him home on tapered steroids and 7 days worth of antibiotics. He can follow up with Dr. Draper in a couple of weeks. Job ID: [id number]
[2019-03-16 11:56] VITALS: BP 156/69; TEMP 97.9
--- NOTE | 2019-03-17 10:43 | DIS ---
DATE OF ADMISSION: 03/14/2019 DATE OF DISCHARGE: 03/16/2019 REASON FOR HOSPITALIZATION: Shortness of breath. SIGNIFICANT FINDINGS: The patient was found to have community-acquired pneumonia in addition to acute COPD exacerbation. PROCEDURES PERFORMED AND TREATMENTS RENDERED: The patient was admitted to [facility] for p.r.n. BiPAP, he was seen and evaluated by Pulmonology, please see full consultation and progress notes for details. The patient had maximum medical therapy including IV steroids, IV antibiotics, and breathing treatments with good improvement of symptoms. The patient is recommended safe for discharge by Pulmonology on 03/16/2019. CONDITION ON DISCHARGE: Stable. SPECIFIC INSTRUCTIONS FOR THE PATIENT/FAMILY: 1. The patient is recommended to complete a full course of oral antibiotics with cefpodoxime one tablet p.o. b.i.d. for the next 7 days. 2. The patient is recommended to complete a full course of prednisone with a tapering dose. 3. The patient is recommended to follow up with Pulmonology, Dr. Draper in the outpatient clinic in the next 5 to 7 days. 4. The patient is recommended to follow up with primary care physician in the next 5 to 7 days. 5. The patient is recommended to return to acute care hospital immediately if signs or symptoms return, worsen, or any other new symptoms occur. DISCHARGE MEDICATIONS: Please see full discharge medication list for details. The only medication changes were; 1. Cefpodoxime 200 mg one tablet p.o. b.i.d. for the next 7 days, 14 tablets. 2. Prednisone 10 mg with a tapering dose as follows: 4 tablets p.o. daily for 3 days, then 3 tablets p.o. daily for 3 days, then 2 tablets p.o. daily for 3 days, then 1 tablet p.o. daily for 3 days, then stop. All other home medications are continued without changes. 1. Coenzyme Q10 200 mg one tablet p.o. b.i.d. 2. Potassium chloride 20 mEq one tablet p.o. daily. 3. Furosemide 20 mg one tablet p.o. b.i.d. 4. Prednisone-this has been changed to a tapering dose. 5. Mucinex DM one tablet p.o. b.i.d. 6. Famotidine 20 mg one tablet p.o. daily. 7. Lisinopril 20 mg one tablet p.o. b.i.d. 8. Clonidine 0.2 mg one tablet p.o. at bedtime p.r.n. blood pressure greater than 180 systolic over 100. 9. Finasteride 5 mg one tablet p.o. daily. 10. Mometasone one puff p.o. b.i.d. 11. Carvedilol 25 mg one tablet p.o. b.i.d. 12. Aspirin 81 mg one tablet p.o. daily. 13. Amlodipine 5 mg one tablet p.o. daily. 14. Albuterol sulfate 0.83 inhaled q.4 hours p.r.n. shortness of breath. 15. Xanax. HOSPITAL COURSE: Mr. Moore is a very pleasant 83-year-old gentleman who presented to [facility] on 03/14/2019 with cough and shortness of breath. The patient was admitted to intermediate medical care floor for p.r.n. BiPAP. The patient diagnosed with COPD with acute exacerbation and community-acquired pneumonia. The patient started on IV antibiotics, IV steroids, and inhaled breathing treatments. The patient seen and evaluated by Pulmonology-please see full consultation and progress notes for details. Pulmonology recommending that the patient has had a good response to maximum medical therapy and recommended the patient safe for discharge. The patient is recommended safe for discharge by Pulmonology on 03/16/2019 with close followup in the outpatient setting with his product safety manager, Dr. Draper. The patient is recommended to follow up with primary care physician and Pulmonology in the next 1 to 2 weeks. The patient is recommended to complete a full course of oral antibiotics and oral steroids as directed. The patient is recommended to return to acute care hospital immediately if signs or symptoms return, worsen, or any other new symptoms occur. TIME SPENT: Greater than 35 minutes spent coordinating care and discharge process for this patient. Job ID: [id number]
== END 2019-03-16 12:41 | disposition home health service (06) | DRG 871 ==
LOC: ERS 13:19 → IMCU/EMU 18:13 → SURG A 03-15 12:57
PROVIDERS: ADMIT Internal Medicine; ATTEND Internal Medicine
DX: A41.9 Sepsis, unspecified organism (principal); J18.9 Pneumonia, unspecified organism; J96.21 Acute and chronic respiratory failure with hypoxia; J44.0 Chronic obstructive pulmonary disease with (acute) lower respiratory infection; J44.1 Chronic obstructive pulmonary disease with (acute) exacerbation; I50.32 Chronic diastolic (congestive) heart failure; I25.10 Atherosclerotic heart disease of native coronary artery without angina pectoris; I48.91 Unspecified atrial fibrillation; Z95.1 Presence of aortocoronary bypass graft; Z90.49 Acquired absence of other specified parts of digestive tract; E78.5 Hyperlipidemia, unspecified; K21.9 Gastro-esophageal reflux disease without esophagitis; F32.9 Major depressive disorder, single episode, unspecified; F41.9 Anxiety disorder, unspecified; I25.2 Old myocardial infarction; I11.0 Hypertensive heart disease with heart failure; N40.0 Benign prostatic hyperplasia without lower urinary tract symptoms; Z87.891 Personal history of nicotine dependence
CPT/HCPCS: 36415; 71045; 80048; 80053; 81003; 82550; 82553; 82805; 83605; 83690; 83880; 84484; 85025; 87040; 93005; 94640; 94644; 94660; J0456; J0696; J1100; J1644; J2920; J3475; J3490; J7611; J7620; Q0163

== ENCOUNTER 2019-08-28 09:44 | Inpatient (IN) | payer MEDICARE ==
[2019-08-28] MEDS ORDERED: Magnesium 2 GM/50 ML BAG (IN WATER) ONE (10:10)
[2019-08-28] MEDS ORDERED: methylPREDNISolone Sod Succ/PF 125 MG/2 ML VIAL ONE (10:10)
[2019-08-28 10:19] LABS: #Eosinphils 0.2 thou/uL (0.0-0.7); #Lymphocytes 0.6 thou/uL (1.20-3.40); #Monocytes 1.5 thou/uL (0.11-0.59); #Neutrophils 15.9 thou/uL (1.40-6.50); %Basophils 0.2 % (0.0-1.0); %Eosinophils 1.2 % (0.0-10.0); %Neutrophils 87.6 % (42.0-75.0); Hemoglobin 14.5 g/dL (14.0-18.0); Mean Corpuscular HGB CONC 31.4 g/dL (32.0-36.0); Mean Corpuscular Hemoglobin 28.8 pg (27.0-31.0); Mean Corpuscular Volume 91.9 fL (78.0-98.0); Mean Platelet Volume 6.7 fL (7.4-10.4); Platelet Count 344 thou/uL (130-400); RBC Distribution Width 14.7 % (11.5-14.5); Red Blood Cell (RBC) Count 5.03 mill/uL (4.70-6.10); White Blood Cell (WBC) Count 18.2 thou/uL (4.8-10.8)
[2019-08-28 10:21] LABS: Actual Bicarbonate (HCO3a) 25.5 mEq/L (22-28); Analyzer IN Cardio ER; Base Excess (BEa) 1.8 mEq/L (-2.0 to +3.0); Calcium, Ionized 1.17 mmol/L (1.12-1.30); Carboxyhemoglobin (COHb) 0.6 gm% (0.0-3.0); O2 Tension (PaO2) 91.6 mmHg (> 60.0); Potassium - ABG Lab 3.68 mmol/L (3.70-5.30); pH, Arterial 7.46 (7.35-7.45)
[2019-08-28 10:24] LABS: Puncture Site RRA
[2019-08-28 10:40] LABS: ALT (SGPT) 9 U/L (8-55); AST (SGOT) 11 U/L (5-34); Albumin 3.4 g/dL (3.4-4.8); Alkaline Phosphatase 80 U/L (40-110); Anion Gap 8 mmol/L (10-20); BUN (Urea Nitrogen) 20 mg/dL (8.4-25.7); Bilirubin, Total 1.1 mg/dL (0.2-1.2); CK (CPK) 36 U/L (30-200); Calc. Creatinine Clearance 0 mL/min (70-130); Carbon Dioxide 37 mmol/L (23-31); Chloride 94 mmol/L (98-107); Estimated GFR-MDRD 75; Globulin 2.7 g/dL (2.4-3.5); Glucose 106 mg/dL (83-110); Lipase 33 U/L (8-78); Potassium 3.5 mmol/L (3.5-5.1); Protein, Total 6.1 g/dL (5.8-8.1); Sodium 135 mmol/L (136-145)
--- NOTE | 2019-08-28 10:45 | RAD ---
RIGHT SHOULDER 3 VIEWS: Date: 08/28/2019 COMPARISON: None. HISTORY: Pain. FINDINGS: There is a nondisplaced, obliquely oriented fracture involving the greater tuberosity. No widening of the acromioclavicular or coracoclavicular interspace. No dislocation of the glenohumeral joint. IMPRESSION: Nondisplaced obliquely oriented fracture at the base of the greater tuberosity of the proximal right humerus. POS: [facility]
--- NOTE | 2019-08-28 10:53 | RAD ---
RADIOGRAPH CHEST 1 VIEW: Date: 08/28/2019 Time: 1001 HOURS HISTORY: 84-year-old male with dyspnea. COMPARISON: 03/15/2019. FINDINGS: Severe hyperlucency of bilateral upper lobes. Diffuse haziness of the rest of the lungs. Cardiomegaly . Complete silhouetting of the left hemidiaphragm, due to the combination of cardiomegaly and probabl e small left pleural effusion. Difficult to rule out underlying left lower lobe consolidation. This l eft lower lobe opacification is now worse. Sternotomy wires. IMPRESSION: 1. Severe emphysema. 2. Left lower lobe opacification, slightly worse than prior study, due to small left pleural effusio n and questionable left lower lobe consolidation. 3. Diffuse interstitial changes throughout the bilateral mid and lower lung zones similar to prior s tudy. Uncertain whether chronic versus acute. RICHARD [] POS: [facility]
[2019-08-28] MEDS ORDERED: Azithromycin 500 MG VIAL ONE (11:19)
[2019-08-28] MEDS ORDERED: cefTRIAXone\\ROCEPHIN 2 GM VIAL ONE (11:19)
[2019-08-28 12:45] LABS: Bilirubin Negative (Negative); Blood, Urine Negative (Negative); Clarity Clear (Clear); Glucose, Urine (Dipstick) Normal (Negative); Leukocyte Negative Leu/uL (Negative); Nitrite Negative (Negative); Protein, Urine (Dipstick) Negative (Neg-Trace)
[2019-08-28] MEDS ORDERED: Acetaminophen 325 MG TAB PO PRN (12:45)
[2019-08-28] MEDS ORDERED: cloNIDine 0.1 MG TAB ONE (13:12)
[2019-08-28 13:38] LABS: Troponin I 0.023 ng/mL (< 0.028)
[2019-08-28] MEDS ORDERED: cloNIDine 0.2 MG TAB PO PRN ×2 (14:55→19:33)
--- NOTE | 2019-08-28 15:04 | CON ---
DATE OF CONSULTATION: HISTORY OF PRESENT ILLNESS: Catarino Moore is an 84-year-old gentleman who was sent to the ER with significant right shoulder pain, shortness of breath, marked weakness. He has been calling our office multiple times in the week for the last several weeks, presented to the ER with sats of 99% on 3 L, blood pressure was 140/80, pulse was 90, respirations 18. Chest x-ray was taken, which showed no current infiltrates, but there was a questionable density in the left lung, which appears to be old. There was a lot of rotation on the x-ray. He has been telling me he has not been coughing any sputum of any significant color, maybe brown. He was given a course of Zithromax a week ago, additionally was given several doses of high-dose steroids up to 60 mg a day, followed by 40 mg a day for several days, down to 20 mg a day. Today, he told me he took 5 mg. He was brought to the ER eventually because of multiple complaints. PAST MEDICAL HISTORY: Coronary artery disease, congestive heart failure, COPD, end-stage former smoker, hypertension, and major anxiety. PREVIOUS SURGERIES: Bypass surgery, cholecystectomy, hernia surgery, prostate. SOCIAL HISTORY: Alcohol, an ounce of alcohol a day. Tobacco, quit a few years ago, pack a day. HOME MEDICATIONS: Include: 1. Prednisone 10. 2. Mucinex. 3. CQ. 4. Potassium. 5. Asmanex. 6. Lisinopril 20. 7. Lasix 20. 8. Finasteride 5. 9. Pepcid 20. 10. Coreg 25 b.i.d. 11. Aspirin. 12. Amlodipine 5. 13. Xanax. ALLERGIES: MULTIPLE; SULFA, HYDRALAZINE, LEVAQUIN, IPRATROPIUM REALLY NOT AN ALLERGY, BUT CAUSES BPH PROBLEMS. REVIEW OF SYSTEMS: Otherwise 10-point negative. PHYSICAL EXAMINATION: GENERAL: Slightly cushingoid. EXTREMITIES: He has no edema on his extremities. VITAL SIGNS: Sats are 90% on 2 L, temperature 97, pulse 61, blood pressure . CHEST: Decreased breath sounds. No wheezing. CARDIAC: Normal S1 and S2. No gallops. ABDOMEN: No masses. LABORATORY DATA AND DIAGNOSTIC STUDIES: PO2 91, PCO2 of 37, apparently on 3 L. BNP is 1311.2, elevated. BUN was normal. X-ray was read as infiltrate, but I think it is chronic changes. White count is slightly elevated. Shoulder shows a nondisplaced fracture at the base of the greater tuberosity of the right humerus. Bicarb was 37. Otherwise, lytes were normal. IMPRESSION: 1. Respiratory failure, chronic obstructive pulmonary disease, congestive heart failure exacerbation. 2. Major anxiety. 3. Fracture, right humerus. The patient's EF is mildly decreased. I have added low-dose Diamox to his regime. Pulmonary ty, low-dose steroids, empiric antibiotics. He wants to go home tomorrow. We will reassess this patient in the morning. Consultation note, 70 minutes, 50% direct patient care. Job ID: [id number]
[2019-08-28] MEDS: ALPRAZolam 0.25 MG TAB PO SCH (15:50)
[2019-08-28 16:36] LABS: Troponin I 0.024 ng/mL (< 0.028)
[2019-08-28 16:57] VITALS: BMI 23.2
[2019-08-28] MEDS: guaiFENesin/DM ER PO SCH (17:04)
[2019-08-28] MEDS ORDERED: GUAIFENESIN PO SCH (18:00)
[2019-08-28] MEDS ORDERED: DEXTROMETHORPHAN PO SCH (18:00)
[2019-08-28] MEDS ORDERED: [UNRECOGNIZED DRUG - OTHER] PO SCH (18:00)
[2019-08-28] MEDS ORDERED: Albuterol Sulfate 2.5 mg/3 ml Neb NEB SCH ×2 (18:30→19:00)
[2019-08-28] MEDS ORDERED: Albuterol 200 PUFF (6.7GM INHALER) INH SCH (18:30)
[2019-08-28] MEDS: Mometasone 200 MCG/Formoterol 5 MCG 120 PUFF INHALER INH SCH (19:02)
--- NOTE | 2019-08-28 19:03 | CON ---
DATE OF CONSULTATION: HISTORY OF PRESENT ILLNESS: We were asked to see patient for an incidental finding of a small right shoulder fracture. Speaking with the patient, he does not remember falling, but his shoulder is sore. He does take prednisone quite frequently, so he knows his bones can be a little brittle. The patient currently has his arms tucked to the side, this is most comfortable for him. He is able to replacer with both hands. He does have a little tenderness on that shoulder, but otherwise is moving his arm fairly well. He does have a sling at the bedside, but it is quite bothersome. Encouraged the patient just to wear it when he is out of bed. PAST MEDICAL HISTORY: 1. Coronary artery disease. 2. Congestive heart failure. 3. COPD. 4. Hypertension. 5. Some anxiety. PAST SURGICAL HISTORY: 1. Bypass. 2. Cholecystectomy. 3. Hernia surgery. 4. Prostate. SOCIAL HISTORY: Drinks a small amount of alcohol a day. Quit smoking a few years ago. CURRENT MEDICATIONS: 1. Prednisone. 2. Mucinex. 3. . 4. Asmanex. 5. Lisinopril. 6. Lasix. 7. Finasteride. 8. Pepcid. 9. Coreg. 10. Aspirin. 11. Amlodipine. 12. Xanax. ALLERGIES: HE HAS MULTIPLE ALLERGIES. 1. SULFA. 2. HYDRALAZINE. 3. LEVAQUIN. 4. IPRATROPIUM. REVIEW OF SYSTEMS: He has some shortness of breath and some right shoulder pain, but otherwise is quite comfortable. Nursing staffs in the room and he has no other complaints currently. PHYSICAL EXAMINATION: GENERAL: He is a well-nourished appearing male, resting in the bed in room 261. Again, Nursing at the bedside, but his speech is clear. Affect is pleasant. He is alert and oriented x3. HEENT: Face is symmetric. Tongue midline. He does have oxygen on. NECK: Supple. Trachea midline. LUNGS: Respirations 20. He does have some scarring to the chest from past surgeries. EXTREMITIES: Upper extremities equal size, shape, symmetry. Normal bulk and tone. He has multiple areas of bruising, and he does have what appears to be an old discolored bruise to the right shoulder. Area is a little tender to palpation. He is able to move both arms equally, right obviously less easily than the left due to the right shoulder pain. Junior Web Designer are equal as are sensations. ASSESSMENT: 1. The patient has multiple health issues. 2. Small right shoulder avulsion fracture, nonsurgical. PLAN: I spoke with the patient. While he is in bed, he does not need to have the sling on as long as he does not do any adduction or shoulder shrugs if he can avoid it. While he is up, I encouraged him to wear the sling, as much as it bothers him, it would be helpful for his healing, he understands this. If needed or has any other problems, we will check on the patient while he is in the hospital. Otherwise, he can follow up in 3-4 weeks with our clinic. Job ID: [id number]
--- NOTE | 2019-08-28 19:31 | PDOC.HHP ---
Hospitalist HPI - History of Present Illness shortness of breath History of Present Illness: THis is an 84 year old male with past medical history of COPD, hypertension, GERD, BPH who presented with worsening shortness of breath. The patient states that he fell on his right arm a few days ago. His right arm pain became severe and constant over the next few days, and uncontrolled with pain medicine at home so he came to the ER for further evaluation. His arm pain is worst with movement. Over the last few days he noticed worsening shortness of breath on exertion. He wears oxygen at home. He denies any worsening of his chronic cough. He denies fevers, chills, sick contacts. He denies chest pain. ED Course: The patient had an EKG which showed afib with RVR, PVC, Hospitalist ROS - Review of Systems Constitutional: denies: fever, chills ENT: denies: ear pain, ear discharge Respiratory: reports: cough (chronic), shortness of breath (worsening) Gastrointestinal: denies: nausea, vomiting, abdominal pain, diarrhea, constipation Genitourinary: denies: dysuria, frequency, incontinence Musculoskeletal: reports: shoulder pain Skin: denies: rash, lesions, jayce Neurological: denies: weakness, numbness - Medication Medications: Active Medications Generic Name Dose Route Start Last Admin Trade Name Freq PRN Reason Stop Dose Admin Acetaminophen 650 mg 08/28/19 12:45 08/28/19 15:50 Tylenol PO 650 mg Q6H PRN Administration Moderate Pain (4-6) Albuterol Sulfate 2.5 mg 08/28/19 18:30 08/28/19 19:01 Ventolin NEB 2.5 mg [id number] LUZMA Administration Alprazolam 0.25 mg 08/28/19 16:00 08/28/19 15:50 Xanax PO 0.25 mg 1600 LUZMA Administration Clonidine 0.2 mg 08/28/19 14:55 08/28/19 15:50 Catapres PO 08/29/19 14:56 0.2 mg ONE PRN Administration SBP> 180 Guaifenesin/Dextromethorphan 1 tab 08/28/19 18:00 08/28/19 17:04 Mucinex Dm PO 1 tab 0900,1800 LUZMA Administration Mometasone Furoate/Formoterol Fumar 2 puff 08/28/19 18:30 08/28/19 19:02 Dulera 200 Mcg/5 Mcg Inhaler INH 2 puff BID-RT LUZMA Administration Hospitalist History - Past Medical History Psych: reports: Anxiety, Depression Renal/: reports: Benign prostatic enlarg. - Past Surgical History Past Surgical History: reports: Cholecystectomy, CABG, Hernia Repair, TURP - Family History Other Family History: father of heart problems - Social History Smoking Status: Former smoker (smoked 40 years, quit 10 years ago) Alcohol: reports: None Drugs: reports: none - Exam General Appearance: NAD, awake alert Eye: PERRL, anicteric sclera ENT: normocephalic atraumatic, no oropharyngeal lesions Neck: supple, no JVD Heart: RRR, no murmur, no gallops, no rubs Respiratory - other findings: mild rales bilaterally and wheezes Gastrointestinal: soft, non-tender, non-distended, normal bowel sounds Extremities: no cyanosis, no clubbing, no edema Extremities - other findings: right arm tenderness on the shoulder Skin: normal turgor, no lesions, no rashes Hospitalist Results - Labs Result Diagrams: 08/28/19 10:08 08/28/19 10:08 Lab results: WBC 18.2 thou/uL (4.8-10.8) H 08/28/19 10:08 Hgb 14.5 g/dL (14.0-18.0) 08/28/19 10:08 Hct 46.2 % (42.0-52.0) 08/28/19 10:08 MCV 91.9 fL (78.0-98.0) 08/28/19 10:08 Plt Count 344 thou/uL (130-400) 08/28/19 10:08 Neutrophils % 87.6 % (42.0-75.0) H 08/28/19 10:08 ABG pH 7.46 (7.35-7.45) H 08/28/19 10:16 ABG pCO2 37.0 mmHg (35.0-45.0) 08/28/19 10:16 ABG pO2 91.6 mmHg (> 60.0) H 08/28/19 10:16 Sodium 135 mmol/L (136-145) L 08/28/19 10:08 Potassium 3.5 mmol/L (3.5-5.1) 08/28/19 10:08 Chloride 94 mmol/L (98-107) L 08/28/19 10:08 Carbon Dioxide 37 mmol/L (23-31) H 08/28/19 10:08 BUN 20 mg/dL (8.4-25.7) 08/28/19 10:08 Creatinine 0.96 mg/dL (0.7-1.3) 08/28/19 10:08 Glucose 106 mg/dL (83-110) 08/28/19 10:08 Lactic Acid 1.4 mmol/L (0.5-2.2) 08/28/19 10:58 Calcium 9.0 mg/dL (7.8-10.44) 08/28/19 10:08 Total Bilirubin 1.1 mg/dL (0.2-1.2) 08/28/19 10:08 AST 11 U/L (5-34) 08/28/19 10:08 ALT 9 U/L (8-55) 08/28/19 10:08 Alkaline Phosphatase 80 U/L (40-110) 08/28/19 10:08 Creatine Kinase 36 U/L (30-200) 08/28/19 10:08 CK-MB (CK-2) 2.0 ng/mL (0-6.6) 08/28/19 10:08 Troponin I 0.024 ng/mL (< 0.028) 08/28/19 16:04 B-Natriuretic Peptide 1311.2 pg/mL (0-100) H 08/28/19 10:11 Serum Total Protein 6.1 g/dL (5.8-8.1) 08/28/19 10:08 Albumin 3.4 g/dL (3.4-4.8) 08/28/19 10:08 Lipase 33 U/L (8-78) 08/28/19 10:08 Urine Ketones Negative mg/dL (Negative) 08/28/19 12:27 Urine Blood Negative (Negative) 08/28/19 12:27 Urine Nitrite Negative (Negative) 08/28/19 12:27 Ur Leukocyte Esterase Negative Junie/uL (Negative) 08/28/19 12:27 - EKG Interpretation EKG: afib with RVR, right bundle branch block, some mild ST depression 1, aVL, V3, V4 Hospitalist H&P A/P - Plan Plan: Chest Xray: severe emphysema. Left lower lobe opacifiication due to small left pleural effusion and left lower lobe consolidation. Diffuse interstitial changes Shoulder X ray: obliquely oriented fracture at the base of the greater tuberosity of the proximal right humerous This is an 84 year old male with past medical history of COPD who presented with worsening right arm pain and shortness of breath on exertion #COPD exacerbation with possible left lower lobe pneumonia #Heart failure - scheduled duoneb and albuterol prn and oral steroids for COPD - WBC 18 with left shift, X ray shows left sided pneumonia. Will start cefdinir and doxycycline - diamox started for possible acute CHF Humerus fracture - orthopedic consulted, recommended wearing a sling Hypertension - continue lisinopril BPH - finasteride DVT prophylaxis: enoxaparin Code status:full code
[2019-08-28] MEDS: Doxycycline 100 MG CAP PO SCH (20:10)
[2019-08-28] MEDS ORDERED: Cefdinir 300 MG CAP PO SCH (20:15)
[2019-08-28] MEDS ORDERED: ALPRAZolam 0.5 MG TAB PO SCH (22:15)
[2019-08-28] MEDS: Albuterol Sulfate 1.25 MG/3 ML NEB INH SCH (22:49)
[2019-08-29] MEDS: Albuterol Sulfate 1.25 MG/3 ML NEB INH SCH ×3 (02:25→10:51)
[2019-08-29 05:03] LABS: #Eosinphils 0.1 thou/uL (0.0-0.7); #Lymphocytes 0.4 thou/uL (1.20-3.40); #Monocytes 1.3 thou/uL (0.11-0.59); #Neutrophils 16.1 thou/uL (1.40-6.50); %Eosinophils 0.7 % (0.0-10.0); %Lymphocytes 2.1 % (21.0-51.0); %Monocytes 7.2 % (0.0-10.0); %Neutrophils 90.1 % (42.0-75.0); Hemoglobin 12.7 g/dL (14.0-18.0); Mean Corpuscular HGB CONC 32.7 g/dL (32.0-36.0); Mean Corpuscular Hemoglobin 29.3 pg (27.0-31.0); Mean Corpuscular Volume 89.6 fL (78.0-98.0); Mean Platelet Volume 6.8 fL (7.4-10.4); Platelet Count 312 thou/uL (130-400); RBC Distribution Width 14.7 % (11.5-14.5); Red Blood Cell (RBC) Count 4.34 mill/uL (4.70-6.10); White Blood Cell (WBC) Count 17.8 thou/uL (4.8-10.8)
[2019-08-29 05:26] LABS: ALT (SGPT) 7 U/L (8-55); AST (SGOT) 10 U/L (5-34); Albumin 2.9 g/dL (3.4-4.8); Alkaline Phosphatase 70 U/L (40-110); Anion Gap 12 mmol/L (10-20); BUN (Urea Nitrogen) 21 mg/dL (8.4-25.7); Bilirubin, Total 0.5 mg/dL (0.2-1.2); Calc. Creatinine Clearance 61 mL/min (70-130); Calcium 8.7 mg/dL (7.8-10.44); Carbon Dioxide 26 mmol/L (23-31); Chloride 98 mmol/L (98-107); Estimated GFR-MDRD Greater than 90; Globulin 2.5 g/dL (2.4-3.5); Glucose 147 mg/dL (83-110); Potassium 3.6 mmol/L (3.5-5.1); Protein, Total 5.4 g/dL (5.8-8.1); Sodium 132 mmol/L (136-145)
[2019-08-29] MEDS ORDERED: Mometasone Furoate 30 PUFF 220 MCG INH SCH (06:00)
[2019-08-29] MEDS: Mometasone 200 MCG/Formoterol 5 MCG 120 PUFF INHALER INH SCH (06:47)
[2019-08-29 07:54] VITALS: TEMP 98.3
[2019-08-29] MEDS ORDERED: Carvedilol 25 MG TAB PO SCH (08:00)
[2019-08-29] MEDS ORDERED: predniSONE 20 MG TAB PO SCH (08:00)
[2019-08-29] MEDS: guaiFENesin/DM ER PO SCH (08:13)
[2019-08-29] MEDS: Amlodipine 5 MG TAB PO SCH ×2 (08:15→08:21)
[2019-08-29] MEDS: Doxycycline 100 MG CAP PO SCH (08:15)
[2019-08-29] MEDS ORDERED: Enoxaparin Sodium 40 MG/0.4 ML SYRINGE SC SCH (09:00)
[2019-08-29] MEDS ORDERED: Finasteride 5 MG TAB PO SCH (09:00)
[2019-08-29] MEDS ORDERED: Ubidecarenone 50 MG CAP PO SCH (09:00)
[2019-08-29] MEDS ORDERED: AcetaZOLAMIDE 250 MG TAB PO SCH (09:00)
[2019-08-29] MEDS ORDERED: Famotidine 20 MG TAB PO SCH (09:00)
[2019-08-29] MEDS ORDERED: Lisinopril 20 MG TAB PO SCH (09:00)
[2019-08-29] MEDS ORDERED: Cefdinir 300 MG CAP PO SCH (09:00)
--- NOTE | 2019-08-29 10:50 | PRG ---
DATE OF SERVICE: 08/29/2019 SUBJECTIVE: An 84-year-old gentleman, who was admitted yesterday with shortness of breath and arm pain, he is better this morning. OBJECTIVE: VITAL SIGNS: Temperature 98, blood pressure 180/96, respiratory rate 18. CHEST: Decreased breath sounds without any wheezing. CARDIAC: Normal S1 and S2. No gallops. ABDOMEN: No masses. LABORATORY DATA: White count 17,000. His lytes are normal. Bicarb is 26 and sodium 132. ASSESSMENT AND PLAN: Congestive heart failure, diastolic dysfunction, systolic function, major anxiety, and urinary tract infection. He wants to go home. Medicine, prednisone 10 a day and Omnicef for a week. Probably can discontinue the doxycycline. Elevated cultures on his urine. We will follow. Job ID: [id number]
[2019-08-29] MEDS ORDERED: Isosorbide Mononitrate (ER) 30 MG TAB PO SCH (11:15)
[2019-08-29] MEDS: ALPRAZolam 0.25 MG TAB PO SCH (12:25)
--- NOTE | 2019-08-29 12:58 | DIS ---
DATE OF ADMISSION: 08/28/2019 DATE OF DISCHARGE: 08/29/2019 DISCHARGE DIAGNOSES: 1. COPD exacerbation with left lower lobe pneumonia 2. Possible heart failure exacerbation 3. Right humerus fracture 4. Hypertensive urgency CONSULTATIONS: 1. Forrest Castaneda PA-C, with Orthopedics. 2. Patrick Draper MD, with Pulmonology. PROCEDURES PERFORMED: None. BRIEF HISTORY OF PRESENT ILLNESS: This is an 84-year-old male with a past medical history of COPD, who had presented to the emergency room with worsening right arm pain. The patient states that he fell on his right arm a few days ago and his pain progressively got worse over the next few days. He also had some worsening shortness of breath over the last few days on exertion. He does wear oxygen at home. He denied worsening of his cough. He denied fevers, chills, or sick contacts. Upon presentation to the ER, the patient had an EKG which showed atrial fibrillation with RVR. He had a chest x-ray which showed severe emphysema and left lower lobe opacification. He also had a shoulder x-ray which showed a fracture at the base of the right humerus. His laboratory work showed a white count of 18.2. He had no fever. He was given ceftriaxone and azithromycin for possible pneumonia and IV steroids and admitted to the hospital. HOSPITAL COURSE: 1. COPD exacerbation with possible left lower lobe pneumonia: The patient was seen by Dr. Draper and started on scheduled breathing treatments and oral prednisone. He was started on cefdinir and doxycycline for left-sided pneumonia. He was also started on Diamox due to elevated CO2 and possible concern for heart failure. The following day, the patient reported improvement in his breathing and requested to be discharged. He is on his baseline oxygen requirement. His blood cultures were negative. His influenza panel was negative and his respiratory culture showed moderate gram-positive cocci in pairs and clusters and few gram-negative rods. Final sputum culture is pending. The patient's white blood cell count came down to 17.8 on the day of discharge. Dr. Draper discontinued his doxycycline and recommended continuing cefdinir. He will be discharged with cefdinir for 6 more days to complete a 7-day course of antibiotics. He was also discharged with Lasix p.r.n. that he can take for edema and congestion. 2. Humerus fracture: The patient had an obliquely oriented fracture at the right humerus. He was seen by Orthopedics, who recommended that the patient wear a sling and to avoid shoulder shrugs and adduction exercises. He will follow up in the orthopedic clinic in 3-4 weeks. 3. Hypertensive urgency: The patient was continued on his home medicine. His blood pressure on the day of discharge increased to 190 systolic. He was given Imdur 30 mg with improvement in his blood pressure to 170. Patient refused additional BP meds and states he takes clonidine prn at home. DISCHARGE PHYSICAL EXAMINATION: VITAL SIGNS: Temperature 98.3, heart rate 77, respiratory rate 20, O2 saturation 95% on 2 L nasal cannula, blood pressure 186/ 98. GENERAL: The patient is alert, awake, oriented x3. CVS: Regular rate and rhythm with no murmurs, rubs, or gallops. LUNGS: Clear to auscultation bilaterally. ABDOMEN: Positive bowel sounds, soft, nontender, nondistended. EXTREMITIES: The patient has some mild pain on the right shoulder with difficulty moving his right shoulder. He has no numbness. He has 4/5 strength in the right upper extremity and 5/5 strength in remaining extremities. PERTINENT LABORATORY DATA: CBC on 08/27: White blood cell count was 18.2. CBC on 08/28: White blood cell count 17.8, hemoglobin 12.7, hematocrit 38.9, platelet count 312. BMP on 08/28: Sodium is 132. Rest of BMP is unremarkable. LFTs on 08/28: Unremarkable. Troponin I: 0.023, 0.024. BNP: 1311.2. UA on 08/27: Normal. IMAGING STUDIES: Chest x-ray on 08/27: Severe emphysema. Left lower lobe opacification due to small left pleural effusion and left lower lobe consolidation. Diffuse interstitial changes. Shoulder x-ray on 08/27: Obliquely oriented fracture at the base of the greater tuberosity of the proximal right humerus. DISCHARGE CONDITION: Stable. ACTIVITY: As tolerated. DIET: Heart healthy diet. DISCHARGE MEDICATIONS: New prescriptions: 1. Cefdinir 300 mg p.o. b.i.d. 2. Furosemide 20 mg p.o. daily p.r.n. All other home medications to be resumed. Please refer to discharge work sheet. DISCHARGE INSTRUCTIONS: The patient should follow up with his PCP in a week. He should have a CBC repeated to evaluate resolution of leukocytosis and anemia. He should have a repeat BMP to evaluate resolution of hyponatremia. He should follow up with Dr. Draper in 2 weeks and consider repeat chest x-ray. He should follow up with Dr. Jose G Zuñiga from Orthopedics in 3-4 weeks for re-evaluation of his arm fracture. Job ID: [id number] MTDD
[2019-08-29 13:21] VITALS: BP 141/82
[2019-08-29] MEDS ORDERED: Aspirin 81 mg Enteric Coated Tablet PO SCH (18:00)
[2019-08-29] MEDS ORDERED: ALPRAZolam 0.5 MG TAB PO SCH (21:00)
--- NOTE | 2019-08-30 06:50 | DIS ---
DATE OF ADMISSION: 08/28/2019 DATE OF DISCHARGE: 08/29/2019 ADDENDUM: The patient was admitted as an inpatient, however, improved faster than anticipated and requested to be discharged per patient request. This was also discussed with Dr. Draper, who was okay with the plan. He will have close followup with Dr. Draper in the clinic. Job ID: [id number]
--- NOTE | 2019-09-01 05:39 | PQF ---
KRISTINE ZULETA, NATIVIDAD [id number] [id number] CLINICAL DOCUMENTATION CLARIFICATION FORM: POST DISCHARGE Addendum to original discharge summary date: ____ Late entry note date: __ DATE:09/01/2019 ATTN: Natividad Kong Please exercise your independent, professional judgment in responding to the clarification form. Clinical indicators are provided on the bottom of this form for your review Please check appropriate box(s) to clarify if the following diagnosis has been ruled in or ruled out: Sepsis [ ] Ruled in diagnosis [ ] Continue to treat [ ] Resolved [ x] Ruled out diagnosis [ ] Cannot rule out diagnosis [ ] Other diagnosis [ ] Unable to determine For continuity of documentation, please document condition throughout progress notes and discharge summary. Thank You. CLINICAL INDICATORS - SIGNS / SYMPTOMS / LABS Laboratory 08/27 WBC 18.2, Plt count 344, Neutrophils 87.6, Lactic Acid 1.4 Urine Culture positive with Enterobacter cloacae complex Vital signs 08/27 BP 135/78, Pulse 79, Resp 24, Temp 97.8 ED notes p12 Possible Pneumonia, Chest pain, COPD exacerbation, Humerus fx and Sepsis H&P p5 08/27 Dr Nobles COPD exacerbation with possible lower lobe pneumonia Consult p2 08/27 Dr Draper Respiratory failure PN p1 08/28 Urinary tract infection ED Notes 08/27 Activation:Sepsis RISK FACTORS H&P p1 08/27 84 year-old Male H&P p1 08/27 HTN H&P p1 08/27 BPH H&P p1 08/27 Afib H&P p4 08/27 Former smoker H&P p4 08/27 Anxiety and depression H&P p4 08/27 CHF PN p1 08/28 - UTI TREATMENTS MAR 08/27 IV Rocephin 2gm MAR 08/27 Omnicef 300mg oral MAR 08/27 Zithromax 500mg oral MAR 08/27 Vibramycin 100mg oral Blood culture - 08/27 Urine culture- -08/27 Oxygen 2L via Nasal cannula ED Notes 08/27 Sepsis Protocol Initiated (This form is maintained as a part of the permanent medical record) 2014 [employer]. All Rights Reserved [email or web address]
--- NOTE | 2019-09-01 05:40 | PQF ---
KRISTINE ZULETA, NATIVIDAD [id number] 2NO-[id number] CLINICAL DOCUMENTATION CLARIFICATION FORM: POST DISCHARGE Addendum to original discharge summary date: ____ Late entry note date: __ DATE:09/01/2019 ATTN: Natividad Kong Please exercise your independent, professional judgment in responding to the clarification form. Clinical indicators are provided on the bottom of this form for your review Please check appropriate box(s): [ ] Acute Respiratory Failure: [ ] with Hypoxia[ ] with Hypercapnia [ ] Acute On Chronic Respiratory Failure: [ ] with Hypoxia [ ] with Hypercapnia [ z ] Other diagnosis ____chronic respiratory failure [ ] Unable to determine For continuity of documentation, please document condition throughout progress notes and discharge summary. Thank You. CLINICAL INDICATORS - SIGNS / SYMPTOMS / LABS ABG 08/27 pH 7.46, pCo2 37, pO2 91.6, O2 sat 97.2 Vital signs 08/27 BP 135/78, Pulse 79, Resp 24, Temp 97.8 ED notes p12 Possible Pneumonia, Chest pain, COPD exacerbation, Humerus fx and Sepsis ED Notes 08/27 patient presents for evaluation of SOB H&P p5 08/27 Dr Nobles COPD exacerbation with possible lower lobe pneumonia Consult p2 08/27 Dr Draper Respiratory failure Chest Xray 08/27 small left pleural effusion and questionable left lower lobe consolidation RISK FACTORS H&P p1 08/27 84 year-old Male H&P p1 08/27 HTN H&P p1 08/27 BPH H&P p1 08/27 Afib H&P p4 08/27 Former smoker H&P p4 08/27 Anxiety and Depression H&P p4 08/27 CHF H&P p4 08/27 on home oxygen TREATMENTS: JUL 15 IV Rocephin 2gm JUL 15 Omnicef 300mg oral JUL 15 Zithromax 500mg oral JUL 15 Vibramycin 100mg oral MAR 08/28 Prednisone 20mg oral MAR 08/28 IV Solumedrol 125mg Blood culture - 08/27 Oxygen 2L via Nasal cannula ABG ordered 08/27 Chest Xray Collected 08/27 (This form is maintained as a part of the permanent medical record) 2014 [employer]. All Rights Reserved [email or web address]
--- NOTE | 2019-09-01 05:42 | PQF ---
KRISTINE ZULETA UMA [id number] 2NO-261 [id number] CLINICAL DOCUMENTATION CLARIFICATION FORM: POST DISCHARGE Addendum to original discharge summary date: ____ Late entry note date: __ DATE:09/01/2019 ATTN: Natividad Kong Please exercise your independent, professional judgment in responding to the clarification form. Clinical indicators are provided on the bottom of this form for your review Please check appropriate box(s): HEART FAILURE EXACERBATION: TYPE: [ ] Systolic / HFrEF [ x ] Diastolic / HFpEF [ ] Combined Systolic / Diastolic For continuity of documentation, please document condition throughout progress notes and discharge summary. Thank You. CLINICAL INDICATORS - SIGNS / SYMPTOMS / LABS Vital signs 08/27 BP 135/78, Pulse 79, Resp 24, Temp 97.8 Laboratory 08/27 Troponin 0.054, BNP 1311.2, CK-MB 2.0 ED Notes 08/27 patient presents for evaluation of SOB ED Notes 08/27 Swelling in the leg and coughing Consult p2 08/27 Dr Draper Respiratory failure, COPD, Congestive heart failure failure exacerbation Consult p2 08/27 Dr Draper the pt EF is mildly decreased PN p1 08/28 Congestive heart failure, diastolic dysfunction, systolic function Chest Xray 08/27 small left pleural effusion and questionable left lower lobe consolidation DS p1 08/28 Dr. Nobles Possible heart failure exacerbation RISKS: H&P p1 08/27 84 year-old Male H&P p1 08/27 HTN H&P p1 08/27 BPH H&P p1 08/27 Afib H&P p4 08/27 Former smoker H&P p4 08/27 Anxiety and Depression ED Notes 08/27 CAD TREATMENTS: JUL 15 Catapress 0.2 oral JUL 15 Aspirin 81 mg oral Oxygen 2L via Nasal cannula Cardiology Consult 08/27 Patrick Benites Chest Xray Collected 08/27JUL 15 Furosemide 20mg Oral (This form is maintained as a part of the permanent medical record) 2014 [employer] All Rights Reserved [email or web address]
== END 2019-08-29 13:35 | disposition home or self-care (01) | DRG 562 ==
LOC: ERS 09:44 → 2NO 11:54
PROVIDERS: ADMIT Internal Medicine; ATTEND Internal Medicine
DX: S42.254A Nondisplaced fracture of greater tuberosity of right humerus, initial encounter for closed fracture (principal); J18.9 Pneumonia, unspecified organism; I50.33 Acute on chronic diastolic (congestive) heart failure; J44.1 Chronic obstructive pulmonary disease with (acute) exacerbation; N39.0 Urinary tract infection, site not specified; J96.10 Chronic respiratory failure, unspecified whether with hypoxia or hypercapnia; J44.0 Chronic obstructive pulmonary disease with (acute) lower respiratory infection; I11.0 Hypertensive heart disease with heart failure; F41.9 Anxiety disorder, unspecified; I25.10 Atherosclerotic heart disease of native coronary artery without angina pectoris; W19.XXXA Unspecified fall, initial encounter; K21.9 Gastro-esophageal reflux disease without esophagitis; N40.0 Benign prostatic hyperplasia without lower urinary tract symptoms; F32.9 Major depressive disorder, single episode, unspecified; I16.0 Hypertensive urgency; I48.91 Unspecified atrial fibrillation; Z99.81 Dependence on supplemental oxygen; Z95.1 Presence of aortocoronary bypass graft; Z90.49 Acquired absence of other specified parts of digestive tract; Z87.891 Personal history of nicotine dependence; Z79.899 Other long term (current) drug therapy; Z79.82 Long term (current) use of aspirin; Z79.52 Long term (current) use of systemic steroids; Z88.1 Allergy status to other antibiotic agents; Z88.2 Allergy status to sulfonamides
CPT/HCPCS: 36415; 51702; 71045; 80053; 81003; 82550; 82553; 82805; 83605; 83690; 83880; 84484; 85025; 87040; 87070; 87077; 87086; 87186; 87205; 87804; 93005; 93798; 94640; 96365; 96367; 96375; J0456; J0696; J1650; J2930; J3475; J7512; J7611; J7620

== ENCOUNTER 2019-09-01 22:00 | Observation (INO) | payer MEDICARE ==
[~2019-09-01 22:00] MED LIST: Iopamidol 370 76% 100 ML VIAL ONE
[2019-09-01 23:19] LABS: #Eosinphils 0.4 thou/uL (0.0-0.7); #Lymphocytes 0.5 thou/uL (1.20-3.40); #Monocytes 1.4 thou/uL (0.11-0.59); #Neutrophils 11.7 thou/uL (1.40-6.50); %Basophils 0.2 % (0.0-1.0); %Eosinophils 2.5 % (0.0-10.0); %Lymphocytes 3.7 % (21.0-51.0); %Neutrophils 83.7 % (42.0-75.0); Mean Corpuscular HGB CONC 32.7 g/dL (32.0-36.0); Mean Corpuscular Hemoglobin 29.3 pg (27.0-31.0); Mean Corpuscular Volume 89.8 fL (78.0-98.0); Mean Platelet Volume 6.7 fL (7.4-10.4); Platelet Count 289 thou/uL (130-400); RBC Distribution Width 14.8 % (11.5-14.5)
--- NOTE | 2019-09-01 23:19 | CT ---
CT BRAIN WITHOUT CONTRAST: Comparison: 10-09-03 History: Fall this evening, hit head, bruising. Patient is on blood thinners. Technique: Multiple contiguous axial images were obtained in a CT of the brain without contrast. FINDINGS: There are scattered hypodensities in the subcortical and periventricular white matter, likely seconda ry to small vessel ischemic disease. No large confluent infarction is seen. There is no evidence of h ydrocephalus, intracranial hemorrhage, or extraaxial fluid collections. The calvarium and overlying soft tissues are unremarkable. The visualized paranasal sinuses and masto id air cells are well aerated. IMPRESSION: No evidence of acute intracranial abnormality. POS: EAA
--- NOTE | 2019-09-01 23:29 | CT ---
CT CERVICAL SPINE WITHOUT CONTRAST: Comparison: None. History: Fall with head trauma and neck pain. Technique: Multiple contiguous axial images were obtained in a CT of the cervical spine without contr ast. Sagittal and coronal reformats were performed. FINDINGS: The vertebral bodies demonstrate normal height and alignment without acute fracture or subluxation. N o prevertebral soft tissue swelling is seen. The posterior facets are well aligned. Normal alignment of the skull base with the cervical spine is seen. IMPRESSION: No evidence of acute osseous abnormality of the cervical spine. POS: EAA
[2019-09-01 23:34] LABS: ALT (SGPT) 10 U/L (8-55); AST (SGOT) 10 U/L (5-34); Albumin 2.8 g/dL (3.4-4.8); Alkaline Phosphatase 74 U/L (40-110); Anion Gap 11 mmol/L (10-20); BUN (Urea Nitrogen) 27 mg/dL (8.4-25.7); Bilirubin, Total 0.7 mg/dL (0.2-1.2); Calc. Creatinine Clearance 0 mL/min (70-130); Calcium 8.5 mg/dL (7.8-10.44); Carbon Dioxide 25 mmol/L (23-31); Chloride 98 mmol/L (98-107); Estimated GFR-MDRD 69; Globulin 2.2 g/dL (2.4-3.5); Glucose 98 mg/dL (83-110); Potassium 3.6 mmol/L (3.5-5.1); Sodium 130 mmol/L (136-145)
--- NOTE | 2019-09-01 23:44 | CT ---
CT OF THE CHEST WITH CONTRAST CT OF THE ABDOMEN AND PELVIS WITH CONTRAST LIMITED CT OF THE THORACIC AND LUMBOSACRAL SPINE WITH CONTRAST: History: Fall with head trauma, periumbilical pain, chest pain, back pain. Patient is on blood thinne rs. Comparison: Chest CT 09-28-11 Technique: 1. Multiple contiguous axial images were obtained in a CT of the chest with contrast. Sagittal and co martha reformats were performed. 2. Multiple contiguous axial images were obtained in a CT of the abdomen and pelvis with contrast. Sa gittal and coronal reformats were performed. 3. Limited CTs of the thoracic and cervical spines were performed. Sagittal and coronal reformats wer e created based on images obtained with chest, abdomen, and pelvic CTs. FINDINGS: CT CHEST: The heart is enlarged. Calcifications are seen in the coronary arteries and aorta. The patient is sta tus post sternotomy. No hilar or mediastinal lymphadenopathy are seen. Severe emphysematous changes are seen in the lungs. There is an area of airspace opacity in the left lower lobe which may represent an infiltrate or atelectasis. Atelectasis is seen in the lingula. No p leural effusion or pneumothorax are seen. No acute abnormality seen in the bones of the thorax. There may be soft tissue swelling surrounding t he right shoulder. CT ABDOMEN/PELVIS: There are scattered hypodensities in the liver measuring up to 2.1 cm in size which represent cysts. There are cysts in both kidneys measuring up to 6.7 cm in size. The gallbladder has been removed. There is a 1.4 cm right adrenal nodule. The left adrenal gland, spleen, and pancreas are unremarkable . There is scattered diverticula in the colon. A large amount of stool is seen in the rectal vault. The small bowel is normal in caliber. Atherosclerotic calcifications are seen in the aorta. No abdominal or pelvic lymphadenopathy seen. There is enlargement of the right rectus abdominus muscle consistent with a leposheet hematoma. The b ones of the pelvis are unremarkable. There is a diverticulum emanating from the posterior aspect of the urinary bladder. LIMITED CT OF THE THORACIC AND LUMBOSACRAL SPINE: The vertebral bodies show normal height and alignment without acute fracture or subluxation. Degenera tive changes and sequellae of curvature are seen in the spine. IMPRESSION: 1. No evidence of acute intrathoracic traumatic abnormality. 2. Possible left lower lobe infiltrate versus atelectasis. 3. Severe emphysema. 4. Right rectus abdominus hematoma. 5. Hepatic and renal cysts. 6. Right adrenal nodule. This is actually slightly smaller than on the prior exam from 02 05. 7. Diverticulosis. 8. Large amount of stool in the rectal vault. 9. Urinary bladder diverticulum. 10. No evidence of acute osseous abnormality of the thoracic and lumbothoracic spine. POS: EAA
[2019-09-02 00:24] LABS: PTT 25.5 SEC (22.9-36.1); Prothrombin Time 13.2 SEC (12.0-14.7)
[2019-09-02] MEDS ORDERED: Acetaminophen 325 MG TAB PO PRN (00:57)
[2019-09-02] MEDS ORDERED: Albuterol Sulfate 1.25 MG/3 ML NEB NEB PRN (01:01)
[2019-09-02] MEDS ORDERED: Bacteriostatic Water 30 ML VIAL FS PRN (01:08)
[2019-09-02] MEDS ORDERED: Furosemide 20 MG/2 ML VIAL SLOW IVP SCH (01:30)
--- NOTE | 2019-09-02 01:50 | HP ---
CHIEF COMPLAINT: Weakness and falling. HISTORY OF PRESENT ILLNESS: Mr. Moore is an 84-year-old male with past medical history of coronary artery disease; hypertension; COPD; congestive heart failure; chronic respiratory failure, on home oxygen; presented to the emergency room with chief complaint of falls from standing multiple times over the last few days. The patient hit his head. He denies loss of consciousness. His daughter provided a brief history of present illness on a piece of paper since she cannot visit currently due to COVID-19 pandemic. The patient reports that he was here 4 days ago and he was diagnosed with ? Pneumonia. The patient denies fever or chills. He has a history of congestive heart failure. He is on Lasix. He is still having bilateral lower extremity swelling. The patient reports that he is on blood thinners. He also complained of bilateral shoulder pain, which had negative x-rays. Also, he reports abdominal pain and swelling and has been going on since his previous falls. Workup in the emergency room, including imaging studies showed right rectus abdominus hematoma, possible left lower lobe atelectasis/infiltrate, severe emphysema, sodium is 130. CT of the brain and cervical spine, no acute finding. WBC count is 14.0. The patient is being admitted to hospital for further management. PAST MEDICAL HISTORY: As mentioned above in history of present illness. PAST SURGICAL HISTORY: 1. Cholecystectomy. 2. Hernia repair. 3. Coronary artery bypass graft surgery, 5 vessels. 4. TURP. SOCIAL HISTORY: The patient drinks alcohol socially. He is a former tobacco smoker. ALLERGIES: THE PATIENT IS ALLERGIC TO PENICILLIN, CIPRO, BACTRIM, HYDRALAZINE, IPRATROPIUM, LEVOFLOXACIN, SULFA, TERAZOSIN, AND TRIMETHOPRIM. HOME MEDICATIONS: Please see home medication reconciliation form for updated medications. REVIEW OF SYSTEMS: Review of 14 systems negative except what is mentioned in history of present illness. PHYSICAL EXAMINATION: GENERAL: The patient is awake, alert, in mild distress. VITAL SIGNS: Blood pressure is 144/90, pulse 68, respiratory rate 22, temperature 97.9, oxygen saturation is 92% on room air. HEAD AND NECK: Normocephalic, atraumatic. NECK: Supple. CHEST: Decreased air entry bilaterally. HEART: S1, S2. Regular. ABDOMEN: Soft with mild right quadrant tenderness. NEUROLOGIC: Awake, alert, and oriented. PSYCHIATRIC: Unable to assess. EXTREMITIES: Positive for edema. No clubbing or cyanosis. LABORATORY DATA: As mentioned above in history of present illness. IMAGING STUDIES: As mentioned above in history of present illness. ASSESSMENT: 1. Generalized weakness. 2. Falls, recurrent. 3. Chronic obstructive pulmonary disease with ? exacerbation. 4. ? left lower lobe infiltrate/pneumonia. 5. Coronary artery disease. 6. Congestive heart failure history. PLAN: 1. Admit. 2. Oxygen to keep saturation more than 92%. 3. Bronchodilators. 4. IV steroids. 5. IV antibiotics. 6. Consider PT/OT eval and treat in a.m. 7. Hold anticoagulation tonight. 8. DVT prophylaxis as appropriate. 9. Expected length of stay at least 1 midnight if patient stable. Job ID: [id number]
[2019-09-02] MEDS ORDERED: Azithromycin 500 MG in Sodium Chloride 0.9% 250 ML 250 ML IVPB SCH (02:00)
[2019-09-02 02:15] LABS: Bilirubin Negative (Negative); Blood, Urine Negative (Negative); Clarity Clear (Clear); Glucose, Urine (Dipstick) Normal (Negative); Leukocyte Negative Leu/uL (Negative); Nitrite Negative (Negative); Protein, Urine (Dipstick) Negative (Neg-Trace); Urobilinogen Normal mg/dL (Less than 2)
[2019-09-02 02:16] LABS: Hemoglobin 12.8 g/dL (14.0-18.0); Mean Corpuscular Hemoglobin 29.1 pg (27.0-31.0); Mean Platelet Volume 6.4 fL (7.4-10.4); Platelet Count 340 thou/uL (130-400); RBC Distribution Width 14.9 % (11.5-14.5); Red Blood Cell (RBC) Count 4.41 mill/uL (4.70-6.10); White Blood Cell (WBC) Count 14.2 thou/uL (4.8-10.8)
[2019-09-02 02:32] LABS: Band 1 % (5-11); Hypochromia SLIGHT = 6-15 cells (100X) (0-5/hpf); Lymphocytes 4 % (21-51); MDiff Complete? YES; Monocytes 9 % (0-10); Neutrophil 86 % (42-75); Platelet Morphology Comment Appears Adequate
[2019-09-02 02:35] LABS: Anion Gap 11 mmol/L (10-20); BUN (Urea Nitrogen) 26 mg/dL (8.4-25.7); Calc. Creatinine Clearance 0 mL/min (70-130); Calcium 9.1 mg/dL (7.8-10.44); Carbon Dioxide 29 mmol/L (23-31); Chloride 98 mmol/L (98-107); Estimated GFR-MDRD 72; Glucose 88 mg/dL (83-110); Potassium 3.8 mmol/L (3.5-5.1); Sodium 134 mmol/L (136-145)
[2019-09-02 02:44] LABS: Troponin I 0.028 ng/mL (< 0.028)
[2019-09-02] MEDS ORDERED: cefTRIAXone\\ROCEPHIN 1 GM in Sodium Chloride 0.9% 100 ML IVPB SCH (03:00)
[2019-09-02 03:13] VITALS: BMI 21.6
[2019-09-02] MEDS ORDERED: methylPREDNISolone Sod Succ 40 MG VIAL IVP SCH ×2 (06:00→21:00)
[2019-09-02] MEDS ORDERED: Heparin 5,000 UNITS/ML VIAL SC SCH (09:00)
[2019-09-02] MEDS: Famotidine 20 MG TAB PO SCH (09:09)
[2019-09-02] MEDS ORDERED: Bisacodyl 10 MG SUPP PR PRN (09:22)
[2019-09-02] MEDS ORDERED: EVOLOCUMAB 140 MG SQ SCH (09:30)
[2019-09-02] MEDS ORDERED: Senokot S 8.6-50 MG TAB PO SCH (09:30)
[2019-09-02] MEDS ORDERED: Polyethylene Glycol 3350 17 GM Packet PO SCH (09:30)
[2019-09-02] MEDS ORDERED: Carvedilol 25 MG TAB PO SCH (09:30)
[2019-09-02] MEDS ORDERED: Finasteride 5 MG TAB PO SCH (09:45)
[2019-09-02] MEDS: ALPRAZolam 0.25 MG TAB PO PRN (09:50)
[2019-09-02 10:19] LABS: Magnesium 2.2 mg/dL (1.6-2.6); Phosphorus 2.5 mg/dL (2.3-4.7)
[2019-09-02 10:25] LABS: Troponin I 0.024 ng/mL (< 0.028)
--- NOTE | 2019-09-02 10:40 | CON ---
DATE OF CONSULTATION: HISTORY OF PRESENT ILLNESS: Catarino Moore is an 84-year-old gentleman, who was admitted to the hospital last night after his family noticed his legs were swollen. He was falling down. He is weak. He had extensive workup, CT abdomen and chest, which shows a hematoma in his rectus sheath probably from a previous Lovenox shot. This morning, he said he is going to go home. He is not having difficulty breathing. Legs are swollen, but no fever or chills. His x-ray and CT show the left lung is shorter which I think is all chronic, probably fibrotic atelectatic changes, but no pneumonia. He clearly has evidence of both systolic and diastolic dysfunction. PAST MEDICAL HISTORY: Very extensively outlined in his multiple medical records. End-stage COPD, congestive heart failure, advanced age, weakness, anxiety. PAST SURGICAL HISTORY: Multiple cholecystectomy, hernia, bypass, former smoker. HOME MEDICINES: 1. Proscar 5. 2. Lasix 20 twice a day. 3. Coreg 25 b.i.d. 4. Aspirin. 5. Xanax. 6. Catapres p.r.n. 7. Lisinopril 20. 8. Asmanex. 9. Albuterol. 10. Ranexa. ALLERGIES: 1. SULFA. 2. LEVAQUIN. 3. IPRATROPIUM. 4. CIPRO. PHYSICAL EXAMINATION: VITAL SIGNS: Temperature 98, pulse 94, respirations 18, saturations 98 on 2 L, blood pressure 184/101. CHEST: Decreased breath sounds. No wheezing. CARDIAC: Normal S1, S2. No gallops. ABDOMEN: No masses. LABORATORY DATA: Lytes are normal. Sodium 134. BNP 741. IMAGING STUDIES: CT brain was negative. IMPRESSION: Advanced age with congestive heart failure along with chronic obstructive pulmonary disease, abnormal CT, left lower lung scarring, I doubt pneumonia. With the advanced age, major anxiety, hypertension, benign prostatic hyperplasia. P.o. medication. PT, supportive care. We will follow. Job ID: [id number]
[2019-09-02] MEDS: Albuterol Sulfate 1.25 MG/3 ML NEB INH SCH ×4 (10:43→22:20)
[2019-09-02] MEDS: cloNIDine 0.1 MG TAB PO PRN ×2 (16:30→23:32)
[2019-09-02] MEDS ORDERED: Lisinopril 20 MG TAB PO SCH (18:00)
[2019-09-02] MEDS ORDERED: Potassium Chloride 20 MEQ TAB PO SCH (18:00)
[2019-09-02] MEDS: Carvedilol 25 MG TAB PO SCH (18:10)
[2019-09-02] MEDS: guaiFENesin ER 600 MG TAB PO SCH (21:28)
[2019-09-02] MEDS: Polyethylene Glycol 3350 17 GM Packet PO SCH ×2 (21:28)
[2019-09-02] MEDS: Doxycycline 100 MG CAP PO SCH (21:28)
[2019-09-02] MEDS: Senokot S 8.6-50 MG TAB PO SCH (21:28)
[2019-09-03] MEDS: Albuterol Sulfate 1.25 MG/3 ML NEB INH SCH ×3 (01:35→10:59)
[2019-09-03] MEDS: cloNIDine 0.1 MG TAB PO PRN (04:23)
[2019-09-03] MEDS: ALPRAZolam 0.25 MG TAB PO PRN (04:23)
[2019-09-03] MEDS: Famotidine 20 MG TAB PO SCH (08:00)
[2019-09-03] MEDS: Doxycycline 100 MG CAP PO SCH (08:00)
[2019-09-03] MEDS: Senokot S 8.6-50 MG TAB PO SCH (08:00)
[2019-09-03] MEDS ORDERED: predniSONE 20 MG TAB PO SCH (08:00)
[2019-09-03] MEDS: guaiFENesin ER 600 MG TAB PO SCH (08:01)
[2019-09-03] MEDS: Carvedilol 25 MG TAB PO SCH (08:01)
[2019-09-03] MEDS ORDERED: Ubidecarenone 50 MG CAP PO SCH (09:00)
[2019-09-03] MEDS ORDERED: Furosemide 20 MG/2 ML VIAL SLOW IVP SCH (09:00)
[2019-09-03] MEDS ORDERED: Mometasone 200 MCG/PUFF (1 INHALER) INH SCH (09:00)
[2019-09-03] MEDS ORDERED: Finasteride 5 MG TAB PO SCH (09:00)
[2019-09-03] MEDS ORDERED: cloNIDine 0.2 MG TAB PO PRN (09:30)
[2019-09-03] MEDS: Polyethylene Glycol 3350 17 GM Packet PO SCH (10:18)
--- NOTE | 2019-09-03 10:34 | PRG ---
DATE OF SERVICE: 09/03/2019 SUBJECTIVE: Catarino Moore this morning is better, he is less short of breath. He is eager to go home. His legs are less swollen. OBJECTIVE: VITAL SIGNS: Blood pressure is markedly elevated at 180/113, sats are , temperature 98, pulse 92. CHEST: Decreased breath sounds, no wheezing. CARDIAC: Normal S1, S2. No gallops. ABDOMEN: No masses. IMPRESSION: End-stage chronic obstructive pulmonary disease, cardiomyopathy, congestive heart failure, severe deconditioning. PLAN: He is eager to go home. I see no reason why not to send him home at this stage. P.o. antibiotics, p.o. steroids. Continue home medication. Job ID: [id number]
[2019-09-03 14:43] VITALS: BP 187/94; TEMP 97.7
--- NOTE | 2019-09-03 17:57 | DIS ---
DATE OF ADMISSION: 09/02/2019 DATE OF DISCHARGE: 09/03/2019 DISCHARGE DISPOSITION: Home with [facility]. INPATIENT TONGUE PRESSER: Pulmonary, Dr. Drpaer. DISCHARGE MEDICATIONS: 1. Doxycycline 100 mg b.i.d. for next 5 days. 2. Prednisone 20 mg daily for 3 days. The patient was advised to resume home dose of prednisone after this. All other home medications were left unchanged. The patient was advised to discuss with Dr. Pan if low-dose aspirin can be restarted. The patient was advised to avoid NSAIDs. BRIEF HOSPITAL COURSE: The patient is an 84-year-old male with recent hospitalization, presented to the hospital with generalized weakness and recurrent falls. Please refer to the history and physical for further details. The patient was admitted to the hospital with a diagnosis of generalized weakness with recurrent fall and COPD exacerbation. He was evaluated by Pulmonary, Dr. Draper. He improved with steroids and antibiotics that has been transitioned to p.o. He received physical therapy during this hospitalization. He declined inpatient rehab or [facility] facility. He appears stable for discharge to discharge home. SIGNIFICANT LABORATORY DATA: Sodium on admission 130, at discharge 134. WBC chronically elevated at 14. Urinalysis was negative. BNP was 741. Troponin was negative. FINAL DIAGNOSES: 1. Generalized weakness with recurrent falls. 2. CT scan of the abdomen showing rectus hematoma. This could be probably due to subcutaneous Lovenox during the recent hospitalization. 3. Chronic obstructive pulmonary disease exacerbation. 4. Recurrent falls. 5. Chronic diastolic heart failure. 6. Chronic leukocytosis. 7. Chronic kidney disease stage 2. 8. Coronary artery disease, status post coronary artery bypass grafting. 9. Hypertension. 10. Benign prostatic hypertrophy. 11. Hyperlipidemia. 12. Anxiety. 13. Chronic anemia, suspected due to nutritional deficiency. 14. Moderate protein calorie malnutrition. 15. Physical deconditioning. The patient understands the above plan of care. Job ID: [id number]
[2019-09-03] MEDS ORDERED: guaiFENesin/DM ER PO SCH (18:00)
[2019-09-03] MEDS ORDERED: Furosemide 20 MG TAB PO SCH (21:00)
--- NOTE | 2019-09-05 14:08 | EKG ---
Test Reason : Blood Pressure : / mmHG Vent. Rate : 071 BPM Atrial Rate : 090 BPM P-R Int : 000 ms QRS Dur : 130 ms QT Int : 414 ms P-R-T Axes : 000 -34 008 degrees QTc Int : 449 ms Atrial fibrillation with premature ventricular or aberrantly conducted complexes Left axis deviation Right bundle branch block Inferior infarct , age undetermined T wave abnormality, consider lateral ischemia Abnormal ECG Confirmed by ANTHONY MYERS ([id number]), primer expeditor and drier RICHELLE BRAVO ([id number]) on 09/05/2019 2:07:53 PM Referred By: Confirmed By:ANTHONY MYERS
== END 2019-09-03 14:45 | disposition home or self-care (01) ==
LOC: ERS 22:00 → 2NO 09-02 01:10
PROVIDERS: ADMIT Internal Medicine; ATTEND Internal Medicine
DX: R53.1 Weakness (principal); R29.6 Repeated falls; S30.1XXA Contusion of abdominal wall, initial encounter; J43.9 Emphysema, unspecified; I13.0 Hypertensive heart and chronic kidney disease with heart failure and stage 1 through stage 4 chronic kidney disease, or unspecified chronic kidney disease; N18.2 Chronic kidney disease, stage 2 (mild); I50.32 Chronic diastolic (congestive) heart failure; D63.1 Anemia in chronic kidney disease; I25.10 Atherosclerotic heart disease of native coronary artery without angina pectoris; N40.0 Benign prostatic hyperplasia without lower urinary tract symptoms; E78.5 Hyperlipidemia, unspecified; F41.9 Anxiety disorder, unspecified; J96.10 Chronic respiratory failure, unspecified whether with hypoxia or hypercapnia; K57.30 Diverticulosis of large intestine without perforation or abscess without bleeding; K76.89 Other specified diseases of liver; N28.1 Cyst of kidney, acquired; E27.8 Other specified disorders of adrenal gland; N32.3 Diverticulum of bladder; I70.0 Atherosclerosis of aorta; I42.9 Cardiomyopathy, unspecified; E44.0 Moderate protein-calorie malnutrition; Z68.21 Body mass index [BMI] 21.0-21.9, adult; Z87.891 Personal history of nicotine dependence; Z79.82 Long term (current) use of aspirin; Z79.899 Other long term (current) drug therapy; Z88.0 Allergy status to penicillin; Z88.1 Allergy status to other antibiotic agents; Z88.2 Allergy status to sulfonamides; Z88.8 Allergy status to other drugs, medicaments and biological substances; Z95.1 Presence of aortocoronary bypass graft; Z99.81 Dependence on supplemental oxygen; X58.XXXA Exposure to other specified factors, initial encounter
CPT/HCPCS: 51701 ×3; 70450; 71260; 72125; 74177; 80048; 80053; 81003; 82607; 82746; 83605; 83735; 83880; 84100; 84484 ×3; 85007; 85025; 85027; 85610; 85730; 86850; 86900; 86901; 93005; 94640 ×3; 94760; 96374; 96375; 96376; 97110; 97116; 97139 ×4; 97535; 99285; G0378 ×3; 36415; 51798; J0456; J0696; J1940; J2920; J3490; J7050; J7512; Q9967

== ENCOUNTER 2019-09-20 05:52 | Emergency (ER) | payer MEDICARE | END 2019-09-20 06:45 | disposition home or self-care (01) | LOC: ERS 05:52 | DX: I11.0 Hypertensive heart disease with heart failure (principal); I50.9 Heart failure, unspecified; I48.91 Unspecified atrial fibrillation; J44.9 Chronic obstructive pulmonary disease, unspecified; I25.10 Atherosclerotic heart disease of native coronary artery without angina pectoris; F41.9 Anxiety disorder, unspecified; Z79.899 Other long term (current) drug therapy; Z79.82 Long term (current) use of aspirin; Z79.891 Long term (current) use of opiate analgesic | CPT/HCPCS: 99283 ==